=== PATIENT | male | born 1985 | race Caucasian/White ===

== ENCOUNTER 2020-07-15 11:33 | Inpatient (IN) | payer SELFPAY ==
[2020-07-15 11:48] VITALS: BP 136/92; PULSE 90; RESP 20; TEMP 36.3; O2SAT 98; BMI 20.4
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
[2020-07-15 12:25] VITALS: BP 101/77; PULSE 71; RESP 18; O2SAT 98
[2020-07-15] MEDS: LORazepam 1 mg Tablet PO (12:31)
[2020-07-15 12:40] LABS: Basophils % 0.4 %; Eosinophils # 0.2 10^3/uL (0.0-0.8); Hemoglobin 16.2 g/dL (11.7-16.6); Lymphocytes # 1.5 10^3/uL (0.8-4.8); Lymphocytes % 20.4 %; Mean Corpuscular HGB Conc 33.1 g/dL (30.0-36.0); Mean Corpuscular Hemoglobin 31.5 pg (28.0-34.0); Mean Corpuscular Volume 95.1 fL (80-94); Mean Platelet Volume 9.3 fL (7.4-10.4); Monocytes # 0.3 10^3/uL (0.2-0.9); Monocytes % 4.5 %; Neutrophils # 5.18 10^3/uL (1.8-7.7); Neutrophils % 71.3 %; Nucleated Red Blood Cells % 0 %; Platelet Count 267 10^3/cmm (130-400); Red Blood Count 5.15 10^6/uL (4.1-5.3); Red Cell Distribution Width 12.8 % (12.1-15.1); White Blood Count 7.3 10^3/uL (4.0-10.0)
[2020-07-15 12:40] LABS: Add Urine Microscopic? NO
[2020-07-15 12:45] LABS: Bilirubin Urine Neg (NEGATIVE); Blood Urine Neg (Negative); Glucose Urine UA Norm (Normal); Ketones Urine Negative (Negative); Leukocyte Esterase Urine Negative (Negative); Nitrate Urine Negative (Negative); Protein Urine Neg (Negative); Specific Gravity, Urine 1.005 (1.005-1.030); Urine Appearance Clear (CLEAR); Urine Color Straw (Yellow); Urobilinogen Urine Norm (Negative); pH Urine 6 (5-7)
[2020-07-15 12:59] VITALS: BP 112/67; PULSE 72; RESP 18; O2SAT 96
[2020-07-15 13:09] LABS: Blood Urea Nitrogen 8 mg/dL (6-20); Calcium 9.7 mg/dL (8.5-10.5); Carbon Dioxide 28 mmol/L (22-29); Chloride 103 mmol/L (98-107); Creatinine Clr Calc Pharmacy 100.8408; Glomerular Filtration Rate 76.2 mL/min (90-130); Glucose 104 mg/dL (65-115); Osmolality Calculated 282 mOsm/kg (285-295); Salicylate 1.2 mg/dL (3-10); Sodium 138 mmol/L (136-145)
[2020-07-15 13:10] LABS: Acetaminophen < 5.0 ug/mL (10-30)
[2020-07-15 13:11] LABS: Amphetamines Screen Urine Negative (Negative); Barbiturates Screen Urine Negative (Negative); Benzodiazepines Screen Urine Negative (Negative); Cocaine Screen Urine Negative (Negative); Opiate Screen Urine Negative (Negative); PCP Screen Urine Negative (Negative); THC Screen Urine Positive (Negative)
--- NOTE | 2020-07-15 13:38 | PC.NURSE ---
REPORT GIVEN TO PHILIP ZAMBRANO
[2020-07-15 14:32] VITALS: BP 108/67; PULSE 63; RESP 18; O2SAT 97
[2020-07-15 14:56] VITALS: BP 113/76; PULSE 84; RESP 20; TEMP 36.8; O2SAT 99
[2020-07-15 20:30] VITALS: BP 99/56; PULSE 62; RESP 17; TEMP 36.9; O2SAT 99
[2020-07-16 06:00] VITALS: BP 86/50; PULSE 65; RESP 13; TEMP 36.8; O2SAT 97
[2020-07-16] MEDS: sulfamethoxazole-trimeth DS 160-800 mg Tablet 1 TAB PO ×2 (09:22→17:58)
[2020-07-16] MEDS: nicotine 2 mg Gum BUCCAL ×2 (09:31→12:51)
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
[2020-07-16] MEDS: OLANZapine 5 mg ODT PO (12:53)
--- NOTE | 2020-07-16 12:53 | PC.NURSE ---
Complaining of racing thoughts and feeling agitated. PRN med given see MAR
[2020-07-16 13:40] VITALS: BP 97/60; PULSE 61; RESP 18; TEMP 36.8; O2SAT 98
[2020-07-16] MEDS: fluoxetine 20 mg Capsule PO (16:12)
[2020-07-16 21:38] VITALS: BP 99/64; PULSE 67; RESP 15; TEMP 36.2; O2SAT 97
[2020-07-17 06:00] VITALS: BP 103/69; PULSE 82; RESP 17; TEMP 36.2; O2SAT 98
[2020-07-17] MEDS: hyDROXYzine 25 mg Capsule 50 MG PO ×2 (08:09→21:19)
[2020-07-17] MEDS: fluoxetine 20 mg Capsule PO (08:09)
[2020-07-17] MEDS: sulfamethoxazole-trimeth DS 160-800 mg Tablet 1 TAB PO ×2 (08:09→17:17)
[2020-07-17] MEDS: nicotine 2 mg Gum BUCCAL ×3 (08:12→15:49)
--- NOTE | 2020-07-17 11:28 | P.PN_ITS ---
Subjective NPU Subjective: Interval history: Urbano presents today reporting that he is tolerating the Prozac just fine. He was able to have a more rational view of his disintegrating relationship. Not exactly clear that it is for sure over. But he was able to talk about different scenarios and how he would manage them. We discussed the possibility of discharge tomorrow after the treatment team convenes and is able to examine his situation. He reports he is eating and sleeping better. Mental Status Exam MSE Comments: This is a slender white male with adequate dress, grooming and eye contact. No abnormal movements except for mild improving psychomotor retardation. Cooperative with exam in no acute distress. Speech was more normal rate and volume. Mood described as a little better, affect congruent. Thought process organized. Thought content: Patient denied any suicidal or homicidal ideations, there were no delusions reported or noted, he denied any auditory or visual hallucinations. Attention and concentration were intact and memory was mostly reliable but none were formally tested. He is alert and oriented x3. Insight and judgment are improving. 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 1. Continue current medication. 2. Encourage individual, group and milieu therapy. 3. Continue every 15 minute checks for safety. 4. Encourage sober living follow-up at the highest level of care to which he is willing to commit. Involuntary Hold Information 96 Hour Hold: 96 Hour Involuntary Admission: No Attestations NPU Medical Necessity Statement*: Inpatient hospitalization is medically necessary and the clinically appropriate intervention at this time. We will monitor medications and initiate medications and/or make changes as indicated. Likely length of stay 1-3 days. Coding Level of Care Code Acute Telecommunications Support for Matty Garvin
[2020-07-17 14:00] VITALS: BP 104/64; PULSE 65; RESP 20; TEMP 36.8; O2SAT 98
[2020-07-17] MEDS: trazodone 50 mg Tablet PO (21:19)
[2020-07-17 21:30] VITALS: BP 108/73; PULSE 69; RESP 21; TEMP 36.4; O2SAT 98
--- NOTE | 2020-07-17 22:25 | PC.NURSE ---
pt offered prn sleep and anxiety meds but refused,
--- NOTE | 2020-07-17 22:30 | PC.NURSE ---
pt given prn trazodone and vistaril per request.
[2020-07-18 06:00] VITALS: BP 96/60; PULSE 53; RESP 18; TEMP 36.6; O2SAT 97
[2020-07-18] MEDS: nicotine 2 mg Gum BUCCAL ×3 (06:18→13:25)
[2020-07-18] MEDS: fluoxetine 20 mg Capsule PO (09:21)
[2020-07-18] MEDS: sulfamethoxazole-trimeth DS 160-800 mg Tablet 1 TAB PO (09:21)
[2020-07-18 14:10] VITALS: BP 96/60; PULSE 53; RESP 18; TEMP 36.6; O2SAT 97
--- NOTE | 2020-07-18 14:32 | PM.NDC ---
Diagnoses at Discharge Discharge Diagnosis (1) Brief reactive psychosis with marked stressor: Status: Resolved (2) Marijuana intoxication: Status: Chronic Reason for Visit Reason for Visit: ANXIETY Brief History: HPI narrative: Patient states he just cannot take anymore he said he is not sleeping well he has thoughts racing through his mind. Said he has had a recent break-up with his girlfriend. He has bits of anger and he will hit stuff in and break chung and and other stuff he said people come and see him anymore. Said he quit meth 8 months ago smokes weed occasionally. Says he just needs some help. Denies SI are homicidal ideations Hospital Course Hospital Course The patient was admitted to the adult psychiatric unit and entered into the form of individual and group therapies as part of the unit protocol. They were provided 24-hour access to medication supervision and therapeutic activities by trained psychiatric nursing. The patient was educated with regard to potential benefits and side effects of new medications. We agreed to a contingency plan of discontinuation of medication in the event of intolerable side effects. On hospital day #2, the patient eloquently described the process that brings him to the stress unit . He becomes overwhelmed by some sort of stress in his life. Whether his anger or anxiety or frustration or depression does not seem to matter. He seems to interpret all of these as anxiety . However when these occur, he notes that he has difficulty with interpreting his reality. He will read sentences and not be quite sure what they mean. He will be perplexed. Fortunately, he is aware that his interpretation is ineffective. When this has happened in the past, in addition to coming to the hospital, he has gone to visit friends or gone to visit his grandparents. Coincidentally, this also removes him from use of marijuana. Over the course of a few days, his perceptions and perplexity over his interpretation of reality resolves. He reports that is what has happened here. He would like to continue taking his fluoxetine as he interprets all of this is anxiety and feels that the fluoxetine will help him with this. We discussed time course of response and he was agreeable to continuing the trial. However he was also advised that it is in his best interest to find alternative ways of dealing with his degree of disorganization under distress other than coming to the hospital. Complications and side effects of hospitalizations were explained. Involuntary Hold Information 96 Hour Hold: 96 Hour Involuntary Admission: No Mental Status Exam MSE Comments: Discharge Mental Status Exam: Appearance: hygiene is good; no gross neurological deficits., gait is unremarkable; AIMS=0 Speech: Speech is of normal rate and rhythm and easily understood. Thought processes: Thought processes are abstract. Judgment is adequate for safety. Associations: intact Psychotic processes: There is no indication of guarding or paranoia. There is no attention to the internal stimuli. Auditory and visual hallucinations are denied. Judgment: Insight is fair. Problem solving skills are adequate for safety. Orientation: The patient is oriented to person, place time and situation. Memory: no deficits noted in immediate, intermediate, or remote spheres. Attention: The patient is alert and interpersonally engaged. Language: Verbalizations are coherent. Fund of knowledge: Fund of knowledge is adequate. Affect/Mood: Affect is consistent with a euthymic mood. denied suicidal ideation Affective range is appropriate. Psychosis: perception unimpaired except through cognitive distortion; reality testing intact. Discharge Data Vitals: Last Vital Signs Temp 97.9 F 07/18/20 14:10 Pulse 53 L 07/18/20 14:10 Resp 18 07/18/20 14:10 BP 96/60 07/18/20 14:10 Pulse Ox 97 07/18/20 14:10 Discharge Plan Discharge Patient Disposition: Home Condition: Stable Prescriptions: New trazodone 50 mg Tablet 50 mg PO BEDTIME PRN (Reason: Sleep) Qty: 15 RF: 3 fluoxetine 20 mg Capsule 20 mg PO DAILY Qty: 30 RF: 3 Continued sulfamethoxazole-trimethoprim 800-160 mg tablet 1 tab PO BID Qty: 8 RF: 0 Discharge Orders: Discharge Order (Routine); Ordered 07/18/20 Ordered By: Reyes Luis Referrals: [facility] [Outside] - 1-3 days (call and request initial intake to get outpatient mental health services started. ) [facility] [Outside] - 1-3 days (call for initial assessment) Patient Instructions: Fluoxetine (By mouth), Trazodone (By mouth), Anxiety (DC) Discharge Attestations NPU Time Spent in Discharge Care*: greater than 30 min Coding Level of Care Code Acute Engraver Signature for [facility] Fwd Diagnoses Brief reactive psychosis with marked stressor F23 Marijuana intoxication F12.929
== END 2020-07-18 15:14 | disposition home or self-care (01) | DRG 885 ==
LOC: ER 12:56 → NP 13:35
PROVIDERS: Admitting Provider Psychiatry & Neurology Psychiatry; Emergency Provider Nurse Practitioner Family; PCP Nurse Practitioner; Visit Provider Psychiatry & Neurology Psychiatry
DX: F23 Brief psychotic disorder (principal); F12.229 Cannabis dependence with intoxication, unspecified; F17.210 Nicotine dependence, cigarettes, uncomplicated
CPT/HCPCS: 12345; 36415; 80048; 80306; 80307; 81003; 85025; 99282

== ENCOUNTER 2020-07-23 18:49 | Inpatient (IN) | payer SELFPAY ==
[2020-07-23 19:06] VITALS: BP 109/75; PULSE 92; RESP 18; TEMP 36.6; O2SAT 98; BMI 22.4
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
[2020-07-23 19:38] VITALS: BP 126/95; PULSE 86; RESP 22; TEMP 37.4; O2SAT 99
[2020-07-23] MEDS: LORazepam 2 mg Tablet PO (20:53)
[2020-07-23] MEDS: trazodone 50 mg Tablet PO (20:54)
--- NOTE | 2020-07-23 20:55 | PC.NURSE ---
PRN ATIVAN ADMINISTERED ATIVAN 2 MG PO PER CIWA PROTOCOL. CIWA SCORE 13. WILL MONITOR FOR MEDICATION EFFECTIVENESS.
[2020-07-23 22:00] VITALS: BP 126/95; PULSE 86; RESP 22; TEMP 37.4; O2SAT 99
--- NOTE | 2020-07-23 22:06 | PC.ADMIT ---
[facility] Admission Note: The patient,Urbano Villeda,34 y/o, was given written information regarding hospital policies, unit procedures and contact persons. Patient's smoking status: . Vital Signs - 8 hr 07/23/20 19:06 07/23/20 19:38 07/23/20 22:00 Temperature 97.8 F 99.3 F 99.3 F Pulse Rate 86 86 Pulse Rate [Monitor] 92 Respiratory Rate 18 22 H 22 H Blood Pressure 126/95 126/95 Blood Pressure [Right Arm] 109/75 Pulse Oximetry 98 99 99 Patient has multiple abrasions primarily on the right side of his body. He has lacerations to bi-lateral elbows which are dressed Xeroform gauze and coband. He has the same type of dressing on his right knee. He has a dressing applied to his right posterior shoulder.
[2020-07-24 01:52] VITALS: BP 126/95; PULSE 84; RESP 18; O2SAT 99
[2020-07-24 06:00] VITALS: BP 106/64; PULSE 59; RESP 18; TEMP 37.3; O2SAT 97
[2020-07-24] MEDS: multivitamin therapeutic Tablet 1 TAB PO (08:06)
[2020-07-24] MEDS: thiamine 100 mg Tablet PO (08:06)
[2020-07-24] MEDS: folic acid 1 mg Tablet PO (08:06)
[2020-07-24] MEDS: acetaminophen 325 mg Tablet 650 MG PO ×2 (08:06→21:00)
[2020-07-24] MEDS: nicotine 2 mg Gum BUCCAL (10:56)
[2020-07-24] MEDS: hyDROXYzine 25 mg Capsule 50 MG PO ×2 (13:05→21:00)
--- NOTE | 2020-07-24 13:07 | PC.NURSE ---
PRN Vistaril Patient became tearful and anxious while discussing hospital stay and reasons for being in hospital with SPN. Given Vistaril 50mg PO at this time. Will monitor the effectiveness of this medication.
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
[2020-07-24 14:00] VITALS: BP 112/67; PULSE 68; RESP 18; TEMP 36.8
[2020-07-24] MEDS: buPROPion SR (12 HR) 100 mg Tablet PO (17:01)
[2020-07-24] MEDS: mirtazapine 15 mg Tablet PO (21:00)
[2020-07-24] MEDS: ARIPiprazole 10 mg Tablet PO (21:01)
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
[2020-07-24 22:00] VITALS: BP 113/70; PULSE 59; RESP 17; TEMP 36.6; O2SAT 97
[2020-07-25 06:00] VITALS: BP 110/63; PULSE 74; RESP 17; TEMP 36.7; O2SAT 97
[2020-07-25] MEDS: acetaminophen 325 mg Tablet 650 MG PO ×2 (06:50→11:26)
--- NOTE | 2020-07-25 06:53 | PC.NURSE ---
PRN 650 PO tylenol given for pain from his injury. Patient expressed that he is having a hard time exhaling and feels pain to the left axillary area. He may need an xray to rule out further injury. Area does not appear bruised or discolored but it is painful to touch and when he takes a deep breath while letting it out.
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
[2020-07-25] MEDS: multivitamin therapeutic Tablet 1 TAB PO (09:37)
[2020-07-25] MEDS: buPROPion SR (12 HR) 100 mg Tablet PO (09:37)
[2020-07-25] MEDS: folic acid 1 mg Tablet PO (09:37)
[2020-07-25] MEDS: thiamine 100 mg Tablet PO (09:37)
[2020-07-25] MEDS: nicotine 2 mg Gum BUCCAL (09:42)
[2020-07-25 13:18] VITALS: BP 110/63; PULSE 74; RESP 17; TEMP 36.7; O2SAT 97
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
== END 2020-07-25 13:30 | disposition home or self-care (01) | DRG 897 ==
LOC: ER 19:12 → NP 20:04
PROVIDERS: Admitting Provider Psychiatry & Neurology Psychiatry; PCP Nurse Practitioner Family; Visit Provider Psychiatry & Neurology Psychiatry
DX: F19.159 Other psychoactive substance abuse with psychoactive substance-induced psychotic disorder, unspecified (principal); R45.851 Suicidal ideations; Z91.5 Personal history of self-harm; R45.850 Homicidal ideations
CPT/HCPCS: 12345; 71101; 99284

== ENCOUNTER 2020-09-07 21:21 | Inpatient (IN) | payer SELFPAY ==
[2020-09-07 21:39] VITALS: BP 131/84; PULSE 105; RESP 18; TEMP 36.5; O2SAT 98; BMI 21.7
--- NOTE | 2020-09-07 22:02 | ED_ITS ---
HPI - Psych General: Chief Complaint: Psychiatric Symptoms Stated Complaint: mhe Time Seen by Provider: 09/07/20 21:24 Source: patient Mode of arrival: ambulatory Limitations: no limitations History of Present Illness: HPI Narrative: 34-year-old male who has a history of methamphetamine abuse. States he used meth yesterday and has been having extreme paranoia and anxiousness. He states that he is also having depression. He denies any specific suicidal plans or suicidal ideation. He states he feels like he needs help with own he would like to go to psychiatric unit voluntarily. He denies any worsening improving factors. Associated symptoms: Reports depression Review of Systems Const: Denies: fever(s), chills, body aches or change in appetite Eyes: Denies: blurry vision or eye discomfort ENMT: Denies: throat pain or dental pain Card: Denies: chest pain Resp: Denies: dyspnea GI: Denies: abdominal pain, nausea, vomiting or diarrhea : Denies: dysuria Musc: Denies: neck pain or back pain Skin/Breast: Denies: rash Neuro: Denies: headache(s) Psych: Reports: anxiety and depression Robert/Lymph: Denies: easy bruising All/Imm: Denies: urticaria PFSH ED PFSH: Social History (Updated 08/11/20 @ 11:57 by LUIS Oscar) Smoking and tobacco status: current every day smoker Alcohol intake: unknown Marital status: Single Physical Exam Const: COMMON NORMALS: no acute distress, patient oriented x3 and healthy appearing HENMT: COMMON NORMALS: normocephalic and atraumatic HEAD & SCALP: normocephalic and atraumatic Eye: COMMON NORMALS: Equal, round and reactive pupils present and EOMs intact bilaterally PUPIL: Yes Equal, round and reactive pupils present Neck/C-Spine: COMMON NORMALS: full ROM and supple Chest: COMMONS NORMALS: normal inspection of the chest and normal palpation of entire chest wall Resp: COMMON NORMALS: normal respiratory effort, No retractions, No use of accessory muscles and clear to auscultation bilaterally AUSCULTATION: clear to auscultation bilaterally Cardio: COMMON NORMALS: regular rate, regular rhythm and No murmurs present (Cardio) RATE: regular rate RHYTHM: regular rhythm GI: COMMON NORMALS: Normal to inspection, nondistended, normoactive bowel sounds present, Soft to palpation, non-tender and no masses PALPATION: Yes Soft to palpation Extremity: COMMON NORMALS: normal to inspection and full ROM Neuro: COMMON NORMALS: patient oriented x3, moves all extremities and no focal motor deficits Psych: COMMON NORMALS: mental status grossly normal and cooperative ATTITUDE: Yes paranoid ACTIVITY/MOTOR BEHAVIOR: Yes fidgeting MOOD & AFFECT: Yes anxious Skin: COMMON NORMALS: no rashes or lesions noted and no wounds GENERAL SKIN EXAM: no rashes or lesions noted MDM - Psych MDM Narrative: Medical decision making narrative: Bernardino presents here with depression along with anxiety and some hallucinations. Some this is likely due to methamphetamine and he has recently used. Patient is voluntarily wanting to be admitted to the psych real at this time. He has no specific plan. I spoke to Dr. Rosales and will admit at this time. Lab Data: Labs: Lab Results 09/07/20 09/07/20 09/07/20 Range/Units 21:58 22:02 22:02 WBC 9.8 (4.0-10.0) 10^3/ uL RBC 5.50 H (4.1-5.3) 10^6/u L Hgb 17.1 H (11.7-16.6) g/dL Hct 51.4 (42.0-52.0) % MCV 93.5 (80-94) fL MCH 31.1 (28.0-34.0) pg MCHC 33.3 (30.0-36.0) g/dL RDW 13.2 (12.1-15.1) % Plt Count 299 (130-400) 10^3/c mm MPV 9.4 (7.4-10.4) fL Neut % (Auto) 68.4 % Lymph % (Auto) 22.6 % [place] % (Auto) 5.7 % Eos % (Auto) 2.4 % Baso % (Auto) 0.7 % Neut # (Auto) 6.69 (1.8-7.7) 10^3/u L Lymph # (Auto) 2.2 (0.8-4.8) 10^3/u L [place] # (Auto) 0.6 (0.2-0.9) 10^3/u L Eos # (Auto) 0.2 (0.0-0.8) 10^3/u L Baso # (Auto) 0.1 (0.0-0.1) 10^3/u L Nucleated RBC % (a uto) 0 % Nucleated RBCs # 0.0 /100WBC Sodium 137 (136-145) mmol/L Potassium 4.2 (3.5-5.1) mmol/L Chloride 100 (98-107) mmol/L Carbon Dioxide 25 (22-29) mmol/L Anion Gap 16.2 (5-19) BUN 16 (6-20) mg/dL Creatinine 1.0 (0.7-1.2) mg/dL GFR Calculation 85.0 L (90-130) mL/min Glucose 99 (65-115) mg/dL Calculated Osmolal ity 285 (285-295) mOsm/k g Calcium 10.0 (8.5-10.5) mg/dL Total Bilirubin 0.4 (0.15-1.2) mg/dL AST 18 (0-40) U/L ALT 17 (0-41) U/L Alkaline Phosphata se 85 (40-130) IU/L Total Protein 7.8 (6.6-8.7) g/dL Albumin 4.9 (3.5-5.2) g/dL Globulin 2.9 (1.3-4.6) g/dL Salicylates < 0.3 L (3-10) mg/dL Urine Opiates Scre en Negative (Negative) ng/mL Acetaminophen < 5.0 L (10-30) ug/mL Ur Barbiturates Sc reen Negative (Negative) ng/mL Ur Phencyclidine S crn Negative (Negative) ng/mL Ur Amphetamines Sc reen Positive H (Negative) ng/mL U Benzodiazepines Scrn Negative (Negative) ng/mL Urine Cocaine Scre en Negative (Negative) ng/mL U Marijuana (THC) Screen Positive H (Negative) ng/mL Ethyl Alcohol < 10 (0-10) mg/dL Discharge Plan Discharge Patient Disposition: Admitted As Inpatient Clinical Impression: Suicidal ideation, Drug-induced psychotic disorder Condition: Stable Referrals: Светлана Yu FNP-C [Primary Care Provider] - Coding Level of Care Code ED Automatic Pad Making Machine Operator for g Fwd Exam Comprehensive
--- NOTE | 2020-09-07 22:10 | ECG_ITS ---
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 Measurements Intervals [place] Rate: 93 P: 85 WI: 147 QRS: 92 QRSD: 95 T: 40 QT: 376 QTc: 468 Interpretive Statements SINUS RHYTHM POSSIBLE LEFT ATRIAL ENLARGEMENT [-0.1mV P WAVE IN V1/V2] BORDERLINE RIGHT AXIS DEVIATION [QRS AXIS > 90] Compared to ECG 03/12/2017 22:24:12 No significant changes Electronically Signed On 09-08-2020 18:33:53 CDT by Darci Sherman M.D. [id number]
[2020-09-07 22:11] LABS: Basophils # 0.1 10^3/uL (0.0-0.1); Basophils % 0.7 %; Eosinophils # 0.2 10^3/uL (0.0-0.8); Eosinophils % 2.4 %; Hematocrit 51.4 % (42.0-52.0); Hemoglobin 17.1 g/dL (11.7-16.6); Lymphocytes # 2.2 10^3/uL (0.8-4.8); Lymphocytes % 22.6 %; Mean Corpuscular HGB Conc 33.3 g/dL (30.0-36.0); Mean Corpuscular Hemoglobin 31.1 pg (28.0-34.0); Mean Corpuscular Volume 93.5 fL (80-94); Mean Platelet Volume 9.4 fL (7.4-10.4); Monocytes # 0.6 10^3/uL (0.2-0.9); Monocytes % 5.7 %; Neutrophils # 6.69 10^3/uL (1.8-7.7); Neutrophils % 68.4 %; Nucleated Red Blood Cells % 0 %; Platelet Count 299 10^3/cmm (130-400); Red Cell Distribution Width 13.2 % (12.1-15.1); White Blood Count 9.8 10^3/uL (4.0-10.0)
[2020-09-07 22:14] LABS: Amphetamines Screen Urine Positive (Negative); Barbiturates Screen Urine Negative (Negative); Benzodiazepines Screen Urine Negative (Negative); Cocaine Screen Urine Negative (Negative); Opiate Screen Urine Negative (Negative); PCP Screen Urine Negative (Negative); THC Screen Urine Positive (Negative)
[2020-09-07 22:30] LABS: Alanine Aminotransferase 17 U/L (0-41); Albumin Level 4.9 g/dL (3.5-5.2); Alkaline Phosphatase 85 IU/L (40-130); Anion Gap 16.2 (5-19); Aspartate Amino Transferase 18 U/L (0-40); Blood Urea Nitrogen 16 mg/dL (6-20); Carbon Dioxide 25 mmol/L (22-29); Chloride 100 mmol/L (98-107); Globulin 2.9 g/dL (1.3-4.6); Glucose 99 mg/dL (65-115); Osmolality Calculated 285 mOsm/kg (285-295); Potassium 4.2 mmol/L (3.5-5.1); Sodium 137 mmol/L (136-145); Total Bilirubin 0.4 mg/dL (0.15-1.2); Total Protein 7.8 g/dL (6.6-8.7)
[2020-09-07] MEDS: LORazepam 2 mg Tablet PO (22:40)
[2020-09-07 22:45] LABS: Acetaminophen < 5.0 ug/mL (10-30); Alcohol Level < 10 mg/dL (0-10); Salicylate < 0.3 mg/dL (3-10)
[2020-09-07 23:02] VITALS: BP 136/80; PULSE 100; RESP 18; O2SAT 99
[2020-09-07 23:35] VITALS: BP 85/55; PULSE 90; RESP 17; TEMP 36.5; O2SAT 96
[2020-09-08] MEDS: ARIPiprazole 10 mg Tablet PO (00:59)
[2020-09-08 05:12] VITALS: BP 78/50; PULSE 69; RESP 16; TEMP 36.7; O2SAT 96
[2020-09-08] MEDS: buPROPion SR (12 HR) 100 mg Tablet PO ×2 (08:12→21:45)
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
[2020-09-08 13:48] VITALS: BP 93/56; PULSE 74; RESP 18; TEMP 36.9; O2SAT 99
[2020-09-08] MEDS: nicotine 2 mg Gum BUCCAL (16:00)
[2020-09-08 20:13] VITALS: BP 93/61; PULSE 81; RESP 17; TEMP 36.6; O2SAT 94
[2020-09-08] MEDS: hyDROXYzine 25 mg Capsule 50 MG PO (21:45)
[2020-09-08] MEDS: trazodone 50 mg Tablet PO (21:45)
[2020-09-09 06:00] VITALS: BP 99/64; PULSE 70; RESP 16; TEMP 36.7; O2SAT 98
[2020-09-09] MEDS: nicotine 2 mg Gum BUCCAL ×3 (08:12→14:27)
[2020-09-09] MEDS: buPROPion SR (12 HR) 100 mg Tablet PO ×2 (08:12→20:24)
[2020-09-09 14:00] VITALS: BP 92/61; PULSE 89; RESP 18; TEMP 36.3; O2SAT 96
--- NOTE | 2020-09-09 15:44 | PC.RESP ---
SMOKING CESSATION INFORMATION SENT TO PATIENT.
--- NOTE | 2020-09-09 16:46 | PM.NPN ---
Subjective NPU Subjective: Interval history: Urbano presents today reporting that he feels significantly better than yesterday. He identified the clear need for avoidance of drugs of abuse in his wellness and overall functioning. He did not have a clear indication of how he would do that but endorsed an understanding of the importance of abstinence in his successful mental health. He denied any issues with the medications and reports that he is adjusting to them being back on board. We discussed the possibility of discharge tomorrow. Mental Status Exam MSE Comments: This is a well-nourished, well-developed white female with adequate respiratory denied. No abnormal movements. Cooperative with exam in mild distress. Speech was decreased rate and volume. Mood described as better, affect congruent. Thought process organized. Thought content: Patient denied suicidal or homicidal ideations, there were no delusions reported or noted, he denied any auditory or visual hallucinations. Attention concentration and memory appear intact but were not formally tested. He is alert and oriented ?3. Insight and judgment are fair, and improving. Impulse control is limited, and improving. Vitals/I&O/Wt Last Vital Signs Temp 97.4 F L 09/09/20 14:00 Pulse 89 09/09/20 14:00 Resp 18 09/09/20 14:00 BP 92/61 09/09/20 14:00 Pulse Ox 96 09/09/20 14:00 Weight last 48 hrs Weight 74.843 kg Data NPU : 09/07/20 22:02 09/07/20 22:02 A&P Additional A&P Information (1) Suicidal ideation: (2) Drug-induced psychotic disorder: (3) Cannabis use disorder, moderate, dependence: (4) Anxiety: (5) Depressive disorder: (6) Brief reactive psychosis with marked stressor: (7) Psychosis: This is a 34-year-old white male known to this press writer from a previous hospitalization who presents with reports of depression and psychosocial stressors from a recent breakout with active addiction and a willingness to initiate medication. 1. Continue current medication. 2. Encourage individual, group and milieu therapy. 3. Continue every 15 minute checks for safety. 4. Encourage sober living follow-up at the highest level of care to which he is willing to commit. Involuntary Hold Information 96 Hour Hold: 96 Hour Involuntary Admission: No 96 Hour Hold Ending Date: 08/01/20 96 Hour Hold Ending Time: 00:01 Attestations NPU Medical Necessity Statement*: Inpatient hospitalization is medically necessary and the clinically appropriate intervention at this time. We will monitor medications and initiate medications and/or make changes as indicated. Likely length of stay 1-3days. Coding Level of Care Code Acute Sales And Marketing Specialist for Matty Garvin
[2020-09-09] MEDS: hyDROXYzine 25 mg Capsule 50 MG PO (20:24)
[2020-09-09] MEDS: trazodone 50 mg Tablet PO (20:24)
--- NOTE | 2020-09-09 20:25 | PC.NURSE ---
PRN TRAZODONE & VISTARIL PT REQUESTING SLEEP AID AND ANXIETY MEDICATION. ADMINISTERED TRAZODONE 50MG PO & VISTARIL 50 MG PO. WILL MONITOR FOR MEDICATION EFFECTIVENESS.
[2020-09-09 20:54] VITALS: BP 100/66; PULSE 81; RESP 16; TEMP 37.1; O2SAT 100
--- NOTE | 2020-09-09 21:42 | PC.NURSE ---
Pt denies pain, SI/HI, VH/AH at this time. He is resting in his bed and requested to be left alone after assessment to sleep
[2020-09-10] MEDS: acetaminophen 325 mg Tablet 650 MG PO (03:30)
[2020-09-10 06:00] VITALS: BP 95/61; PULSE 74; RESP 16; TEMP 36.8; O2SAT 98
[2020-09-10] MEDS: nicotine 2 mg Gum BUCCAL (06:32)
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
[2020-09-10 07:29] VITALS: BP 95/61; PULSE 74; RESP 16; TEMP 36.8; O2SAT 98
[2020-09-10] MEDS: buPROPion SR (12 HR) 100 mg Tablet PO (08:20)
== END 2020-09-10 09:36 | disposition home or self-care (01) | DRG 897 ==
LOC: ER 22:20 → NP 23:29
PROVIDERS: Emergency Medicine; Admitting Provider Psychiatry & Neurology Psychiatry; PCP Nurse Practitioner Family; Visit Provider Psychiatry & Neurology Psychiatry
DX: F10.129 Alcohol abuse with intoxication, unspecified (principal); R45.851 Suicidal ideations; F15.259 Other stimulant dependence with stimulant-induced psychotic disorder, unspecified; F41.8 Other specified anxiety disorders; F12.10 Cannabis abuse, uncomplicated; Y90.8 Blood alcohol level of 240 mg/100 ml or more; F17.210 Nicotine dependence, cigarettes, uncomplicated
CPT/HCPCS: 12345; 80053; 80306; 80307; 85025; 93005; 99284

== ENCOUNTER 2020-09-16 01:07 | Inpatient (IN) | payer SELFPAY ==
[2020-09-16 01:11] VITALS: BP 109/72; PULSE 78; RESP 22; TEMP 36.7; O2SAT 98; BMI 24.4
[2020-09-16] MEDS: diphenhydrAMINE 50 mg/mL SDV 1mL IM (01:33)
[2020-09-16] MEDS: ziprasidone 20 mg/mL SDV 10 MG IM (01:33)
[2020-09-16 01:55] LABS: Amphetamines Screen Urine Negative (Negative); Barbiturates Screen Urine Negative (Negative); Benzodiazepines Screen Urine Negative (Negative); Cocaine Screen Urine Negative (Negative); Opiate Screen Urine Negative (Negative); PCP Screen Urine Negative (Negative); THC Screen Urine Positive (Negative)
--- NOTE | 2020-09-16 02:22 | ED_ITS ---
HPI - Psych General: Chief Complaint: Psychiatric Symptoms Stated Complaint: si and etoh Time Seen by Provider: 09/16/20 01:11 Source: patient and EMS Mode of arrival: EMS Limitations: other (Patient not cooperative) History of Present Illness: HPI Narrative: Urbano is a 35-year-old male who comes in agitated. He is brought in by EMS after apparently he threatened to kill himself. He wanted to try to with suicide by surgical endoscopist . Patient is agitated borderline combative but is able to be redirected currently. He states he knows he needs to come into the hospital and he has been off of his psychiatric medications for the past 2 days. He would not elaborate on what these medications are. He states that if we do not give him some help he is going to do this to himself. The patient cannot answer most questions and just continues to ask us to help him kill himself. Review of Systems General: Reports: ROS unobtainable due to mental status (Patient not cooperative due to agitation.) PFS ED PFSH: Surgical History (Updated 09/16/20 @ 02:59 by Madeleine Soto) Hx of tonsillectomy Social History (Updated 08/11/20 @ 11:57 by LUIS Oscar) Smoking and tobacco status: current every day smoker Alcohol intake: unknown Marital status: Single Physical Exam Const: COMMON NORMALS: no acute distress, patient oriented x3, no limitations and alert GENERAL APPEARANCE: cooperative HENMT: COMMON NORMALS: normocephalic, atraumatic, external ears normal, EAC's normal and Normal external nose present HEAD & SCALP: normal to inspection, normocephalic and atraumatic FACE & SINUS: normal facial exam and face symmetric NOSE: Normal external nose present and Normal nares present EXTERNAL EAR: Yes external ears normal EXTERNAL AUDITORY CANAL: EAC's normal MOUTH: Normal oral and palatal mucosa present, lip normal and tongue normal Eye: COMMON NORMALS: Equal, round and reactive pupils present and conjunctivae normal GENERAL EYE: appearance normal, both eyes and all related structures ALIGNMENT: Yes alignment normal PERIORBITAL: periorbital findings normal EYELID: eyelids normal CONJUNCTIVA: Yes conjunctivae normal SCLERA: sclerae normal PUPIL: Yes Equal, round and reactive pupils present Neck/C-Spine: COMMON NORMALS: full ROM, no lymphadenopathy, supple, no meningeal signs and no JVD GENERAL: Yes normal visual inspection and Yes trachea midline Chest: COMMONS NORMALS: normal inspection of the chest and normal palpation of entire chest wall Resp: COMMON NORMALS: normal respiratory effort, No retractions, No use of accessory muscles and clear to auscultation bilaterally EFFORT & INSPECTION: Yes able to speak in complete sentences and Yes symmetric chest movement AUSCULTATION: clear to auscultation bilaterally, no crackles, no rales, no rhonchi and no wheezes Cardio: COMMON NORMALS: no JVD, regular rate, regular rhythm, S1 normal heart sound present and S2 normal heart sound present RATE: regular rate RHYTHM: regular rhythm HEART SOUNDS: S1 normal heart sound present, S2 normal heart sound present, no click, no gallops, no murmurs and no rubs GI: COMMON NORMALS: Soft to palpation and No hepatosplenomegaly present PALPATION: Yes Soft to palpation, No Tenderness to palpation present (GI), No Guarding due to palpation present (GI), No Rigid due to palpation, Yes No hepatosplenomegaly present, No Hernia present, No Palpable mass present and No Pulsatile mass present : COMMON NORMALS: Yes no CVA tenderness BLADDER/KIDNEY EXAM: Yes no CVA tenderness Back/Pelvis: COMMON NORMALS: no CVA tenderness, thoracic and lumbar spine normal to inspection, no thoracic nor lumbar tenderness and thoraco-lumbar ROM normal Extremity: COMMON NORMALS: normal to inspection, full ROM, capillary refill normal, no joint enlargement, no clubbing, cyanosis or edema and no calf tenderness Neuro: COMMON NORMALS: patient oriented x3, CN's II-XII intact bilaterally, moves all extremities, no focal motor deficits and no sensory deficits noted SENSORIUM/ORIENTATION: Yes alert MENINGEAL SIGNS: Yes no meningeal signs SPEECH: speech normal Skin: COMMON NORMALS: no rashes or lesions noted, turgor normal, no jaundice, no petechiae and no mottling GENERAL SKIN EXAM: no rashes or lesions noted and turgor normal MDM - Psych MDM Narrative: Medical decision making narrative: The case was reviewed with Dr. Rosales and he agrees to admission and [facility]. Lab Data: Attestation: I reviewed the patient's lab results. Labs: Lab Results 09/16/20 Range/Units 01:19 Urine Opiates Scre en Negative (Negative) ng/mL Ur Barbiturates Sc reen Negative (Negative) ng/mL Ur Phencyclidine S crn Negative (Negative) ng/mL Ur Amphetamines Sc reen Negative (Negative) ng/mL U Benzodiazepines Scrn Negative (Negative) ng/mL Urine Cocaine Scre en Negative (Negative) ng/mL U Marijuana (THC) Screen Positive H (Negative) ng/mL Discharge Plan Discharge Patient Disposition: Admitted As Inpatient Admit Provider: Reyes Luis Clinical Impression: Suicidal ideation Condition: Stable Coding Level of Care Code ED Wwe Wrestler for Matty Garvin
[2020-09-16 02:56] LABS: Basophils # 0.1 10^3/uL (0.0-0.1); Basophils % 0.6 %; Eosinophils # 0.1 10^3/uL (0.0-0.8); Eosinophils % 1.2 %; Hematocrit 47.5 % (42.0-52.0); Hemoglobin 15.6 g/dL (11.7-16.6); Lymphocytes # 2.2 10^3/uL (0.8-4.8); Lymphocytes % 20.8 %; Mean Corpuscular HGB Conc 32.8 g/dL (30.0-36.0); Mean Corpuscular Hemoglobin 30.8 pg (28.0-34.0); Mean Corpuscular Volume 93.9 fL (80-94); Mean Platelet Volume 9.5 fL (7.4-10.4); Monocytes # 0.3 10^3/uL (0.2-0.9); Monocytes % 3.1 %; Neutrophils # 7.83 10^3/uL (1.8-7.7); Neutrophils % 73.9 %; Nucleated Red Blood Cells % 0 %; Platelet Count 244 10^3/cmm (130-400); Red Blood Count 5.06 10^6/uL (4.1-5.3); White Blood Count 10.6 10^3/uL (4.0-10.0)
[2020-09-16 03:18] LABS: Alanine Aminotransferase 17 U/L (0-41); Albumin Level 4.8 g/dL (3.5-5.2); Alcohol Level 179 mg/dL (0-10); Alkaline Phosphatase 74 IU/L (40-130); Anion Gap 12.8 (5-19); Aspartate Amino Transferase 24 U/L (0-40); Blood Urea Nitrogen 8 mg/dL (6-20); Calcium 9.1 mg/dL (8.5-10.5); Carbon Dioxide 28 mmol/L (22-29); Chloride 108 mmol/L (98-107); Creatinine Clr Calc Pharmacy 148.5786; Globulin 2.2 g/dL (1.3-4.6); Glucose 111 mg/dL (65-115); Osmolality Calculated 299 mOsm/kg (285-295); Potassium 3.8 mmol/L (3.5-5.1); Sodium 145 mmol/L (136-145); Thyroid Stimulating Hormone 6.22 uIU/mL (0.27-4.20); Total Bilirubin 0.3 mg/dL (0.15-1.2)
[2020-09-16 03:36] LABS: Acetaminophen < 5.0 ug/mL (10-30); Salicylate < 0.3 mg/dL (3-10)
[2020-09-16 04:43] VITALS: BP 106/72; PULSE 87; RESP 14; TEMP 36.6; O2SAT 100
[2020-09-16 05:06] VITALS: BP 112/77; PULSE 74; O2SAT 100
[2020-09-16 06:00] VITALS: BP 106/72; PULSE 87; RESP 14; TEMP 36.6; O2SAT 100
[2020-09-16] MEDS: multivitamin therapeutic Tablet 1 TAB PO (07:43)
[2020-09-16] MEDS: thiamine 100 mg Tablet PO (07:44)
[2020-09-16] MEDS: folic acid 1 mg Tablet PO (07:44)
[2020-09-16] MEDS: buPROPion SR (12 HR) 100 mg Tablet PO (07:44)
--- NOTE | 2020-09-16 09:43 | PM.NHP ---
Providers/Chief Complaint Admitting Physician: Reyes Luis MD Primary Care Provider: Светлана Yu REGISTERED SAFETY ENGINEER-C Chief Complaint: si and etoh HPI NPU History of Present Illness When I get drink, I just get stupid. Urbano Villeda is a 35 year old male who was an alcoholic. He had remained clean and sober until yesterday afternoon. He began hanging around with friends who were drinking. He eventually succumbed to the temptation. He presented to the emergency room with a blood alcohol level = 179. The emergency room physician note is as follows: Laboratory Tests 09/16/20 09/16/20 01:19 02:42 Ur Barbiturates Screen Negative Ur Phencyclidine Scrn Negative Ur Amphetamines Screen Negative U Benzodiazepines Scrn Negative Urine Cocaine Screen Negative U Marijuana (THC) Screen Positive H Ethyl Alcohol 179 H Recent Psycchiatric history: 09/08/2020 thru 09/10/2020 (6 days ago) History of Present Illness: HPI Narrative: 34-year-old male who has a history of methamphetamine abuse. States he used meth yesterday and has been having extreme paranoia and anxiousness. He states that he is also having depression. He denies any specific suicidal plans or suicidal ideation. He states he feels like he needs help with own he would like to go to psychiatric unit voluntarily. He denies any worsening improving factors. Associated symptoms: Reports depression. He presented to the neuropsychiatric unit for definitive treatment of those issues. She presents today reporting that he was last here about a month or so ago. He reports that he had his first psychiatric hospitalization in . He reportedly had hallucinations then. He reports having the same issues now and is very despondent secondary to his mental health reportedly costing him to relationships. He reports that he feels the people in his community are wanted her crazy and are making fun of him and driving him crazy. He reports that the Wellbutrin and the Remeron have been helpful. However he feels the Abilify may not be as helpful. We discussed the risks benefits and alternatives of considering an alternative medication once we looked at what he would have coverage for any understood and agreed to proceed as documented in his note. He reports smoking about a pack of cigarettes a day denying alcohol use endorsing marijuana use daily, he denies cocaine, methamphetamine or opiate use but then said he did use a couple days ago. He ultimately had a positive UDS for methamphetamine. Even the rehabilitation 3 times completing once and denies having a DUI. He was last seen by this sign writer hand for an evaluation on 07/16/2020 and last seen in the hospital in the beginning of July. An excerpt from his last evaluation with this sign writer hand is included below as he denies there are substantive changes. Discharged on: bupropion HCl 100 mg Tablet Sustained-Release 12 Hr 100 mg PO BID 30 Days Qty: 60 RF: 1 mirtazapine 15 mg Tablet 15 mg PO BEDTIME PRN (Reason: Insomnia) 30 Days Qty: 30 RF: 1 aripiprazole 10 mg Tablet 10 mg PO BEDTIME 30 Days Qty: 30 RF: 1 He was hospitalized for 24 hours from 07/24/2020yo 07/25/2020 07/18/2020 HPI narrative: Patient states he just cannot take anymore he said he is not sleeping well he has thoughts racing through his mind. Said he has had a recent break-up with his girlfriend. He has bits of anger and he will hit stuff in and break chung and and other stuff he said people come and see him anymore. Said he quit meth 8 months ago smokes weed occasionally. Says he just needs some help. Denies SI are homicidal ideations Hospital Course The patient was admitted to the adult psychiatric unit and entered into the form of individual and group therapies as part of the unit protocol. They were provided 24-hour access to medication supervision and therapeutic activities by trained psychiatric nursing. The patient was educated with regard to potential benefits and side effects of new medications. We agreed to a contingency plan of discontinuation of medication in the event of intolerable side effects. On hospital day #2, the patient eloquently described the process that brings him to the stress unit . He becomes overwhelmed by some sort of stress in his life. Whether his anger or anxiety or frustration or depression does not seem to matter. He seems to interpret all of these as anxiety . However when these occur, he notes that he has difficulty with interpreting his reality. He will read sentences and not be quite sure what they mean. He will be perplexed. Fortunately, he is aware that his interpretation is ineffective. When this has happened in the past, in addition to coming to the hospital, he has gone to visit friends or gone to visit his grandparents. Coincidentally, this also removes him from use of marijuana. Over the course of a few days, his perceptions and perplexity over his interpretation of reality resolves. He reports that is what has happened here. He would like to continue taking his fluoxetine as he interprets all of this is anxiety and feels that the fluoxetine will help him with this. We discussed time course of response and he was agreeable to continuing the trial. However he was also advised that it is in his best interest to find alternative ways of dealing with his degree of disorganization under distress other than coming to the hospital. Complications and side effects of hospitalizations were explained. trazodone 50 mg Tablet 50 mg PO BEDTIME PRN (Reason: Sleep) Qty: 15 RF: 3 fluoxetine 20 mg Capsule 20 mg PO DAILY Qty: 30 RF: 3 Meds NPU Home Medications Medication Instructions Recorded Confirmed Last Taken Type aripiprazole 10 mg PO BEDTIME 30 Days #30 tab 09/10/20 09/16/20 Unknown Rx bupropion HCl 100 mg PO BID 30 Days #60 tab 09/10/20 09/16/20 Unknown Rx mirtazapine 15 mg PO BEDTIME PRN 30 Days #30 09/10/20 09/16/20 Unknown Rx tab Allergies Allergy/AdvReac Type Severity Reaction Status Date / Time haloperidol [From Haldol] Allergy ADR-Anxiety Verified 09/16/20 04:43 metoclopramide [From Reglan] Allergy ADR-Anxiety Verified 09/16/20 04:43 PFSH NPU PFSH: Surgical History (Updated 09/16/20 @ 02:59 by Madeleine Soto) Hx of tonsillectomy Social History (Updated 08/11/20 @ 11:57 by LUIS Oscar) Smoking and tobacco status: current every day smoker Alcohol intake: unknown Marital status: Single Vitals/I&O/Wt Last Vital Signs Temp 97.9 F 09/16/20 06:00 Pulse 87 09/16/20 06:00 Resp 14 09/16/20 06:00 BP 106/72 09/16/20 06:00 Pulse Ox 100 09/16/20 06:00 Weight last 48 hrs Weight 83.915 kg Data NPU : 09/16/20 02:42 09/16/20 02:42 Involuntary Hold Information 96 Hour Hold: 96 Hour Involuntary Admission: Yes 96 Hour Hold Ending Date: 09/22/20 96 Hour Hold Ending Time: 04:42 Coding Level of Care Code Acute Training And Development Project Leader for Matty Garvin
--- NOTE | 2020-09-16 11:21 | PM.SDS ---
Short Stay Summary Providers Date of Admit/Discharge: 09/16/20 Attending Provider: Reyes Luis MD Primary Care Provider: Светлана Yu Chief Complaint: si and etoh HPI History of Present Illness When I get drink, I just get stupid. Urbano Villeda is a 35 year old male who was an alcoholic. He had remained clean and sober until yesterday afternoon. He began hanging around with friends who were drinking. He eventually succumbed to the temptation. He presented to the emergency room with a blood alcohol level = 179. The emergency room physician note is as follows: HPI Narrative: Urbano is a 35-year-old male who comes in agitated. He is brought in by EMS after apparently he threatened to kill himself. He wanted to try to with suicide by copy supervisor . Patient is agitated borderline combative but is able to be redirected currently. He states he knows he needs to come into the hospital and he has been off of his psychiatric medications for the past 2 days. He would not elaborate on what these medications are. He states that if we do not give him some help he is going to do this to himself. The patient cannot answer most questions and just continues to ask us to help him kill himself. Laboratory Tests 09/16/20 09/16/20 01:19 02:42 Ur Barbiturates Screen Negative Ur Phencyclidine Scrn Negative Ur Amphetamines Screen Negative U Benzodiazepines Scrn Negative Urine Cocaine Screen Negative U Marijuana (THC) Screen Positive H Ethyl Alcohol 179 H Recent Psycchiatric history: 09/08/2020 thru 09/10/2020 (6 days ago) History of Present Illness: HPI Narrative: 34-year-old male who has a history of methamphetamine abuse. States he used meth yesterday and has been having extreme paranoia and anxiousness. He states that he is also having depression. He denies any specific suicidal plans or suicidal ideation. He states he feels like he needs help with own he would like to go to psychiatric unit voluntarily. He denies any worsening improving factors. Associated symptoms: Reports depression. He presented to the neuropsychiatric unit for definitive treatment of those issues. She presents today reporting that he was last here about a month or so ago. He reports that he had his first psychiatric hospitalization in 19-20. He reportedly had hallucinations then. He reports having the same issues now and is very despondent secondary to his mental health reportedly costing him to relationships. He reports that he feels the people in his community are wanted her crazy and are making fun of him and driving him crazy. He reports that the Wellbutrin and the Remeron have been helpful. However he feels the Abilify may not be as helpful. We discussed the risks benefits and alternatives of considering an alternative medication once we looked at what he would have coverage for any understood and agreed to proceed as documented in his note. He reports smoking about a pack of cigarettes a day denying alcohol use endorsing marijuana use daily, he denies cocaine, methamphetamine or opiate use but then said he did use a couple days ago. He ultimately had a positive UDS for methamphetamine. Even the rehabilitation 3 times completing once and denies having a DUI. He was last seen by this curriculum writer for an evaluation on 07/16/2020 and last seen in the hospital in the beginning of July. An excerpt from his last evaluation with this curriculum writer is included below as he denies there are substantive changes. Discharged on: bupropion HCl 100 mg Tablet Sustained-Release 12 Hr 100 mg PO BID 30 Days Qty: 60 RF: 1 mirtazapine 15 mg Tablet 15 mg PO BEDTIME PRN (Reason: Insomnia) 30 Days Qty: 30 RF: 1 aripiprazole 10 mg Tablet 10 mg PO BEDTIME 30 Days Qty: 30 RF: 1 He was hospitalized for 24 hours from 07/24/2020yo 07/25/2020 07/18/2020 HPI narrative: Patient states he just cannot take anymore he said he is not sleeping well he has thoughts racing through his mind. Said he has had a recent break-up with his girlfriend. He has bits of anger and he will hit stuff in and break chung and and other stuff he said people come and see him anymore. Said he quit meth 8 months ago smokes weed occasionally. Says he just needs some help. Denies SI are homicidal ideations Hospital Course The patient was admitted to the adult psychiatric unit and entered into the form of individual and group therapies as part of the unit protocol. They were provided 24-hour access to medication supervision and therapeutic activities by trained psychiatric nursing. The patient was educated with regard to potential benefits and side effects of new medications. We agreed to a contingency plan of discontinuation of medication in the event of intolerable side effects. On hospital day #2, the patient eloquently described the process that brings him to the stress unit . He becomes overwhelmed by some sort of stress in his life. Whether his anger or anxiety or frustration or depression does not seem to matter. He seems to interpret all of these as anxiety . However when these occur, he notes that he has difficulty with interpreting his reality. He will read sentences and not be quite sure what they mean. He will be perplexed. Fortunately, he is aware that his interpretation is ineffective. When this has happened in the past, in addition to coming to the hospital, he has gone to visit friends or gone to visit his grandparents. Coincidentally, this also removes him from use of marijuana. Over the course of a few days, his perceptions and perplexity over his interpretation of reality resolves. He reports that is what has happened here. He would like to continue taking his fluoxetine as he interprets all of this is anxiety and feels that the fluoxetine will help him with this. We discussed time course of response and he was agreeable to continuing the trial. However he was also advised that it is in his best interest to find alternative ways of dealing with his degree of disorganization under distress other than coming to the hospital. Complications and side effects of hospitalizations were explained. trazodone 50 mg Tablet 50 mg PO BEDTIME PRN (Reason: Sleep) Qty: 15 RF: 3 fluoxetine 20 mg Capsule 20 mg PO DAILY Qty: 30 RF: 3 Home Meds/Allergies Home Medications and Allergies Allergies Allergy/AdvReac Type Severity Reaction Status Date / Time haloperidol [From Haldol] Allergy ADR-Anxiety Verified 09/16/20 04:43 metoclopramide [From Reglan] Allergy ADR-Anxiety Verified 09/16/20 04:43 PFSH Acute PFSH: Surgical History (Updated 09/16/20 @ 02:59 by Madeleine Soto) Hx of tonsillectomy Social History (Updated 08/11/20 @ 11:57 by LUIS Oscar) Smoking and tobacco status: current every day smoker Alcohol intake: unknown Marital status: Single Vitals/I&O/Wt Last Vital Signs Temp 97.9 F 09/16/20 06:00 Pulse 87 09/16/20 06:00 Resp 14 09/16/20 06:00 BP 106/72 09/16/20 06:00 Pulse Ox 100 09/16/20 06:00 Weight last 48 hrs Weight 83.915 kg Physical Exam Narrative: EXAM NARRATIVE: Discharge Mental Status Exam: Appearance: hygiene is good; no gross neurological deficits., gait is unremarkable; AIMS=0 Speech: Speech is of normal rate and rhythm and easily understood. Thought processes: Thought processes are abstract. Judgment is adequate for safety. Associations: intact Psychotic processes: There is no indication of guarding or paranoia. There is no attention to the internal stimuli. Auditory and visual hallucinations are denied. Judgment: Insight is fair. Problem solving skills are adequate for safety. Orientation: The patient is oriented to person, place time and situation. Memory: no deficits noted in immediate, intermediate, or remote spheres. Attention: The patient is alert and interpersonally engaged. Language: Verbalizations are coherent. Fund of knowledge: Fund of knowledge is adequate. Affect/Mood: Affect is consistent with a euthymic mood. denied suicidal ideation Affective range is appropriate. Psychosis: perception unimpaired except through cognitive distortion; reality testing intact. Hospital Course Hospital Course: The patient was admitted to the adult psychiatric unit and entered into the form of individual and group therapies as part of the unit protocol. They were provided 24-hour access to medication supervision and therapeutic activities by trained psychiatric nursing. He has presented to the emergency room with an almost identical circumstance and story before. He corrie up and he no longer is suicidal. He is active in AA. He has a meeting this afternoon. Today he states that he is a little hung over but in no way is he suicidal or homicidal. He does not feel that there is anything that we can do for him. Discharge Plan Discharge Patient Disposition: Left Against Medical Advice Condition: Stable Prescriptions: Discontinued bupropion HCl 100 mg Tablet Sustained-Release 12 Hr 100 mg PO BID 30 Days Qty: 60 RF: 1 mirtazapine 15 mg Tablet 15 mg PO BEDTIME PRN (Reason: Insomnia) 30 Days Qty: 30 RF: 1 aripiprazole 10 mg Tablet 10 mg PO BEDTIME 30 Days Qty: 30 RF: 1 Attestations Medical Necessity Statement*: Patient is discharged AGAINST MEDICAL ADVICE Time Spent in Patient Care*: greater than 30 min Status at Discharge: Cognitive status at discharge: cognitively intact, Behavioral status at discharge: cooperative, Quality Metrics Clinical Quality Measures: During this hospital stay, did patient experience: None Coding Level of Care Code Acute Supervisor [employer] for Matty Garvin
[2020-09-16 11:27] VITALS: BP 106/72; PULSE 87; RESP 14; TEMP 36.6; O2SAT 100
--- NOTE | 2020-09-16 16:53 | PC.RESP ---
Smoking Cessation information sent to patient.
== END 2020-09-16 12:43 | disposition left against medical advice (07) | DRG 894 ==
LOC: ER 01:12 → NP 02:37
PROVIDERS: Emergency Medicine; Admitting Provider Psychiatry & Neurology Psychiatry; PCP Nurse Practitioner Family; Visit Provider Psychiatry & Neurology Psychiatry
DX: F10.229 Alcohol dependence with intoxication, unspecified (principal); R45.851 Suicidal ideations; Y90.6 Blood alcohol level of 120-199 mg/100 ml; Z91.128 Patient's intentional underdosing of medication regimen for other reason; F15.10 Other stimulant abuse, uncomplicated; F22 Delusional disorders; F41.9 Anxiety disorder, unspecified; F32.9 Major depressive disorder, single episode, unspecified; F17.210 Nicotine dependence, cigarettes, uncomplicated
CPT/HCPCS: 12345; 80053; 80306; 80307; 84443; 85025; 96372; 99284; J1200; J3486

== ENCOUNTER 2021-01-21 00:09 | Emergency (ER) | payer SELFPAY ==
[2021-01-21] VITALS (10 sets, daily range): BP systolic 90–151; BP diastolic 52–111; PULSE 67–103; RESP 16–18; TEMP 36.4; O2SAT 93–99; BMI 25.3
--- NOTE | 2021-01-21 00:17 | ED_ITS ---
Documented by User: CHASIDY Haas 01/21/21 03:14 HPI - Psych General: Chief Complaint: Psychiatric Symptoms Stated Complaint: etoh, si, hi Time Seen by Provider: 01/21/21 00:11 History of Present Illness: HPI Narrative: 35-year-old male patient comes in today with complaints of alcohol intoxication. Patient was brought in by EMS after he became belligerent and law enforcement was called. Patient had reportedly made comments of wanting to harm himself or others. EMS had given the patient 1 L of IV fluids in route to the ER. On arrival here patient denies any suicidal or homicidal thought. Patient is intoxicated. Patient does report to drinking 2/5 of alcohol this evening. Review of Systems General: Reports: 10 or more systems reviewed and unremarkable except in HPI and below Psych: Reports: other (Intoxicated) [facility] ED PFSH: Surgical History (Updated 09/16/20 @ 02:59 by Madeleine Soto) Hx of tonsillectomy Social History (Updated 08/11/20 @ 11:57 by LUIS Oscar) Smoking and tobacco status: current every day smoker Alcohol intake: unknown Marital status: Single Physical Exam Const: COMMON NORMALS: no acute distress and patient oriented x3 GENERAL APPEARANCE: cooperative HENMT: COMMON NORMALS: normocephalic and Normal external nose present HEAD & SCALP: normal to inspection and normocephalic NOSE: Normal external nose present MOUTH: Normal oral and palatal mucosa present Eye: GENERAL EYE: appearance normal, both eyes and all related structures Neck/C-Spine: COMMON NORMALS: full ROM Chest: COMMONS NORMALS: normal inspection of the chest Resp: COMMON NORMALS: normal respiratory effort EFFORT & INSPECTION: Yes able to speak in complete sentences Cardio: COMMON NORMALS: regular rate and regular rhythm RATE: regular rate RHYTHM: regular rhythm GI: COMMON NORMALS: non-tender Back/Pelvis: COMMON NORMALS: thoracic and lumbar spine normal to inspection Extremity: COMMON NORMALS: normal to inspection Neuro: COMMON NORMALS: patient oriented x3 and moves all extremities Psych: COMMON NORMALS: mental status grossly normal and cooperative Skin: COMMON NORMALS: no rashes or lesions noted GENERAL SKIN EXAM: no rashes or lesions noted MDM - Psych Lab Data: Labs: Lab Results 01/21/21 01/21/21 01/21/21 Range/Units 00:25 00:25 01:19 WBC 8.7 (4.0-10.0) 10^3/ uL RBC 5.01 (4.1-5.3) 10^6/u L Hgb 15.3 (11.7-16.6) g/dL Hct 47.2 (42.0-52.0) % MCV 94.2 H (80-94) fL MCH 30.5 (28.0-34.0) pg MCHC 32.4 (30.0-36.0) g/dL RDW 13.2 (12.1-15.1) % Plt Count 332 (130-400) 10^3/c mm MPV 9.5 (7.4-10.4) fL Neut % (Auto) 45.9 % Lymph % (Auto) 39.6 % [place] % (Auto) 6.6 % Eos % (Auto) 6.6 % Baso % (Auto) 1.2 % Neut # (Auto) 3.98 (1.8-7.7) 10^3/u L Lymph # (Auto) 3.4 (0.8-4.8) 10^3/u L [place] # (Auto) 0.6 (0.2-0.9) 10^3/u L Eos # (Auto) 0.6 (0.0-0.8) 10^3/u L Baso # (Auto) 0.1 (0.0-0.1) 10^3/u L Nucleated RBC % (a uto) 0 % Nucleated RBCs # 0.0 /100WBC Sodium 144 (136-145) mmol/L Potassium 4.6 (3.5-5.1) mmol/L Chloride 104 (98-107) mmol/L Carbon Dioxide 31 H (22-29) mmol/L Anion Gap 13.6 (5-19) BUN 12 (6-20) mg/dL Creatinine 0.9 (0.7-1.2) mg/dL GFR Calculation 95.5 (90-130) mL/min Glucose 92 (65-115) mg/dL Calculated Osmolal ity 297 H (285-295) mOsm/k g Calcium 9.4 (8.5-10.5) mg/dL Total Bilirubin 0.2 (0.15-1.2) mg/dL AST 30 (0-40) U/L ALT 33 (0-41) U/L Alkaline Phosphata se 77 (40-130) IU/L Total Protein 7.6 (6.6-8.7) g/dL Albumin 4.8 (3.5-5.2) g/dL Globulin 2.8 (1.3-4.6) g/dL TSH 13.53 H (0.27-4.20) uIU/ mL Urine Color Yellow (Yellow) Urine Appearance Clear (CLEAR) Urine pH 5 (5-7) Ur Specific Gravit y 1.020 (1.005-1.030) Urine Protein Neg (Negative) Urine Glucose (UA) Norm (Normal) Urine Ketones Negative (Negative) Urine Blood Neg (Negative) Urine Nitrate Negative (Negative) Urine Bilirubin Neg (Negative) Urine Urobilinogen Norm (Negative) mg/dL Ur Leukocyte Gosia ase Negative (Negative) Salicylates < 0.3 L (3-10) mg/dL Urine Opiates Scre en (Negative) ng/mL Acetaminophen < 5.0 L (10-30) ug/mL Ur Barbiturates Sc reen (Negative) ng/mL Ur Phencyclidine S crn (Negative) ng/mL Ur Amphetamines Sc reen (Negative) ng/mL U Benzodiazepines Scrn (Negative) ng/mL Urine Cocaine Scre en (Negative) ng/mL U Marijuana (THC) Screen (Negative) ng/mL Ethyl Alcohol 270 H (0-10) mg/dL 01/21/21 01/21/21 Range/Units 01:19 04:47 WBC (4.0-10.0) 10^3/ uL RBC (4.1-5.3) 10^6/u L Hgb (11.7-16.6) g/dL Hct (42.0-52.0) % MCV (80-94) fL MCH (28.0-34.0) pg MCHC (30.0-36.0) g/dL RDW (12.1-15.1) % Plt Count (130-400) 10^3/c mm MPV (7.4-10.4) fL Neut % (Auto) % Lymph % (Auto) % [place] % (Auto) % Eos % (Auto) % Baso % (Auto) % Neut # (Auto) (1.8-7.7) 10^3/u L Lymph # (Auto) (0.8-4.8) 10^3/u L [place] # (Auto) (0.2-0.9) 10^3/u L Eos # (Auto) (0.0-0.8) 10^3/u L Baso # (Auto) (0.0-0.1) 10^3/u L Nucleated RBC % (a uto) % Nucleated RBCs # /100WBC Sodium (136-145) mmol/L Potassium (3.5-5.1) mmol/L Chloride (98-107) mmol/L Carbon Dioxide (22-29) mmol/L Anion Gap (5-19) BUN (6-20) mg/dL Creatinine (0.7-1.2) mg/dL GFR Calculation (90-130) mL/min Glucose (65-115) mg/dL Calculated Osmolal ity (285-295) mOsm/k g Calcium (8.5-10.5) mg/dL Total Bilirubin (0.15-1.2) mg/dL AST (0-40) U/L ALT (0-41) U/L Alkaline Phosphata se (40-130) IU/L Total Protein (6.6-8.7) g/dL Albumin (3.5-5.2) g/dL Globulin (1.3-4.6) g/dL TSH (0.27-4.20) uIU/ mL Urine Color (Yellow) Urine Appearance (CLEAR) Urine pH (5-7) Ur Specific Gravit y (1.005-1.030) Urine Protein (Negative) Urine Glucose (UA) (Normal) Urine Ketones (Negative) Urine Blood (Negative) Urine Nitrate (Negative) Urine Bilirubin (Negative) Urine Urobilinogen (Negative) mg/dL Ur Leukocyte Gosia ase (Negative) Salicylates (3-10) mg/dL Urine Opiates Scre en Negative (Negative) ng/mL Acetaminophen (10-30) ug/mL Ur Barbiturates Sc reen Negative (Negative) ng/mL Ur Phencyclidine S crn Negative (Negative) ng/mL Ur Amphetamines Sc reen Negative (Negative) ng/mL U Benzodiazepines Scrn Negative (Negative) ng/mL Urine Cocaine Scre en Negative (Negative) ng/mL U Marijuana (THC) Screen Positive H (Negative) ng/mL Ethyl Alcohol 199 H (0-10) mg/dL Discharge Plan Discharge Patient Disposition: Home Clinical Impression: Alcohol intoxication Qualifiers: Complication of substance-induced condition: uncomplicated Qualified Code(s): F10.920 - Alcohol use, unspecified with intoxication, uncomplicated Condition: Stable Prescriptions: No Action bupropion HCl 100 mg Tablet Sustained-Release 12 Hr 100 mg PO BID 30 Days Qty: 60 RF: 1 mirtazapine 15 mg Tablet 15 mg PO BEDTIME PRN (Reason: Insomnia) 30 Days Qty: 30 RF: 1 aripiprazole 10 mg Tablet 10 mg PO BEDTIME 30 Days Qty: 30 RF: 1 Discharge Orders: Discharge ED (Routine); Ordered 01/21/21 Ordered By: Eric Serna Referrals: Светлана Yu FNP-C [Primary Care Provider] - Discharge Diet: Advance as tolerated Discharge Activity: Limit activity as instructed Patient Instructions: Alcohol Intoxication (ED) Activity Restrictions/Additional Instructions: Return for any thoughts or wishes to harm your self or others. Abstain from alcohol Coding Level of Care Code ED Corporate Safety Director for [place] Fwd Exam Comprehensive Documented by User: Eric Serna, 01/21/21 06:45 HPI - Psych General: Chief Complaint: Psychiatric Symptoms Stated Complaint: etoh, si, hi Time Seen by Provider: 01/21/21 00:11 [facility] ED PFSH: Surgical History (Updated 09/16/20 @ 02:59 by Madeleine Soto) Hx of tonsillectomy Social History (Updated 08/11/20 @ 11:57 by LUIS Oscar) Smoking and tobacco status: current every day smoker Alcohol intake: unknown Marital status: Single MDM - Psych MDM Narrative: Medical decision making narrative: 35-year-old intoxicated male checked out to me by CHASIDY Frye. I agree with his history, evaluation, and treatment. This gentleman is resting comfortably. His vitals been completely stable. His alcohol level is down under 200. His mother's been called, he was the responsible adult coming to get him. This gentleman has never made any suicidal statements since being here. He has denied suicidality altogether. He will be allowed home Lab Data: Labs: Lab Results 01/21/21 01/21/21 01/21/21 Range/Units 00:25 00:25 01:19 WBC 8.7 (4.0-10.0) 10^3/ uL RBC 5.01 (4.1-5.3) 10^6/u L Hgb 15.3 (11.7-16.6) g/dL Hct 47.2 (42.0-52.0) % MCV 94.2 H (80-94) fL MCH 30.5 (28.0-34.0) pg MCHC 32.4 (30.0-36.0) g/dL RDW 13.2 (12.1-15.1) % Plt Count 332 (130-400) 10^3/c mm MPV 9.5 (7.4-10.4) fL Neut % (Auto) 45.9 % Lymph % (Auto) 39.6 % [place] % (Auto) 6.6 % Eos % (Auto) 6.6 % Baso % (Auto) 1.2 % Neut # (Auto) 3.98 (1.8-7.7) 10^3/u L Lymph # (Auto) 3.4 (0.8-4.8) 10^3/u L [place] # (Auto) 0.6 (0.2-0.9) 10^3/u L Eos # (Auto) 0.6 (0.0-0.8) 10^3/u L Baso # (Auto) 0.1 (0.0-0.1) 10^3/u L Nucleated RBC % (a uto) 0 % Nucleated RBCs # 0.0 /100WBC Sodium 144 (136-145) mmol/L Potassium 4.6 (3.5-5.1) mmol/L Chloride 104 (98-107) mmol/L Carbon Dioxide 31 H (22-29) mmol/L Anion Gap 13.6 (5-19) BUN 12 (6-20) mg/dL Creatinine 0.9 (0.7-1.2) mg/dL GFR Calculation 95.5 (90-130) mL/min Glucose 92 (65-115) mg/dL Calculated Osmolal ity 297 H (285-295) mOsm/k g Calcium 9.4 (8.5-10.5) mg/dL Total Bilirubin 0.2 (0.15-1.2) mg/dL AST 30 (0-40) U/L ALT 33 (0-41) U/L Alkaline Phosphata se 77 (40-130) IU/L Total Protein 7.6 (6.6-8.7) g/dL Albumin 4.8 (3.5-5.2) g/dL Globulin 2.8 (1.3-4.6) g/dL TSH 13.53 H (0.27-4.20) uIU/ mL Urine Color Yellow (Yellow) Urine Appearance Clear (CLEAR) Urine pH 5 (5-7) Ur Specific Gravit y 1.020 (1.005-1.030) Urine Protein Neg (Negative) Urine Glucose (UA) Norm (Normal) Urine Ketones Negative (Negative) Urine Blood Neg (Negative) Urine Nitrate Negative (Negative) Urine Bilirubin Neg (Negative) Urine Urobilinogen Norm (Negative) mg/dL Ur Leukocyte Gosia ase Negative (Negative) Salicylates < 0.3 L (3-10) mg/dL Urine Opiates Scre en (Negative) ng/mL Acetaminophen < 5.0 L (10-30) ug/mL Ur Barbiturates Sc reen (Negative) ng/mL Ur Phencyclidine S crn (Negative) ng/mL Ur Amphetamines Sc reen (Negative) ng/mL U Benzodiazepines Scrn (Negative) ng/mL Urine Cocaine Scre en (Negative) ng/mL U Marijuana (THC) Screen (Negative) ng/mL Ethyl Alcohol 270 H (0-10) mg/dL 01/21/21 01/21/21 Range/Units 01:19 04:47 WBC (4.0-10.0) 10^3/ uL RBC (4.1-5.3) 10^6/u L Hgb (11.7-16.6) g/dL Hct (42.0-52.0) % MCV (80-94) fL MCH (28.0-34.0) pg MCHC (30.0-36.0) g/dL RDW (12.1-15.1) % Plt Count (130-400) 10^3/c mm MPV (7.4-10.4) fL Neut % (Auto) % Lymph % (Auto) % [place] % (Auto) % Eos % (Auto) % Baso % (Auto) % Neut # (Auto) (1.8-7.7) 10^3/u L Lymph # (Auto) (0.8-4.8) 10^3/u L [place] # (Auto) (0.2-0.9) 10^3/u L Eos # (Auto) (0.0-0.8) 10^3/u L Baso # (Auto) (0.0-0.1) 10^3/u L Nucleated RBC % (a uto) % Nucleated RBCs # /100WBC Sodium (136-145) mmol/L Potassium (3.5-5.1) mmol/L Chloride (98-107) mmol/L Carbon Dioxide (22-29) mmol/L Anion Gap (5-19) BUN (6-20) mg/dL Creatinine (0.7-1.2) mg/dL GFR Calculation (90-130) mL/min Glucose (65-115) mg/dL Calculated Osmolal ity (285-295) mOsm/k g Calcium (8.5-10.5) mg/dL Total Bilirubin (0.15-1.2) mg/dL AST (0-40) U/L ALT (0-41) U/L Alkaline Phosphata se (40-130) IU/L Total Protein (6.6-8.7) g/dL Albumin (3.5-5.2) g/dL Globulin (1.3-4.6) g/dL TSH (0.27-4.20) uIU/ mL Urine Color (Yellow) Urine Appearance (CLEAR) Urine pH (5-7) Ur Specific Gravit y (1.005-1.030) Urine Protein (Negative) Urine Glucose (UA) (Normal) Urine Ketones (Negative) Urine Blood (Negative) Urine Nitrate (Negative) Urine Bilirubin (Negative) Urine Urobilinogen (Negative) mg/dL Ur Leukocyte Gosia ase (Negative) Salicylates (3-10) mg/dL Urine Opiates Scre en Negative (Negative) ng/mL Acetaminophen (10-30) ug/mL Ur Barbiturates Sc reen Negative (Negative) ng/mL Ur Phencyclidine S crn Negative (Negative) ng/mL Ur Amphetamines Sc reen Negative (Negative) ng/mL U Benzodiazepines Scrn Negative (Negative) ng/mL Urine Cocaine Scre en Negative (Negative) ng/mL U Marijuana (THC) Screen Positive H (Negative) ng/mL Ethyl Alcohol 199 H (0-10) mg/dL Discharge Plan Discharge Patient Disposition: Home Clinical Impression: Alcohol intoxication Qualifiers: Complication of substance-induced condition: uncomplicated Qualified Code(s): F10.920 - Alcohol use, unspecified with intoxication, uncomplicated Condition: Stable Prescriptions: No Action bupropion HCl 100 mg Tablet Sustained-Release 12 Hr 100 mg PO BID 30 Days Qty: 60 RF: 1 mirtazapine 15 mg Tablet 15 mg PO BEDTIME PRN (Reason: Insomnia) 30 Days Qty: 30 RF: 1 aripiprazole 10 mg Tablet 10 mg PO BEDTIME 30 Days Qty: 30 RF: 1 Discharge Orders: Discharge ED (Routine); Ordered 01/21/21 Ordered By: Eric Serna Referrals: Светлана Yu TREE TRIMMING LINE TECHNICIAN-C [Primary Care Provider] - Discharge Diet: Advance as tolerated Discharge Activity: Limit activity as instructed Patient Instructions: Alcohol Intoxication (ED) Activity Restrictions/Additional Instructions: Return for any thoughts or wishes to harm your self or others. Abstain from alcohol Coding Level of Care Code ED Corporate Safety Director for [place] Fwd Exam Comprehensive
[2021-01-21] MEDS: folic acid 1 MG, multivitamin inj 10 ML, thiamine 100 MG in sodium chloride 0.9% 1,000 ML 252.8 MG IV (01:01)
[2021-01-21] MEDS: LORazepam 2 mg/mL INJ 1 mL IVP (01:04)
[2021-01-21] MEDS: ziprasidone 20 mg/mL SDV IM (01:04)
[2021-01-21 01:31] LABS: Basophils # 0.1 10^3/uL (0.0-0.1); Basophils % 1.2 %; Eosinophils # 0.6 10^3/uL (0.0-0.8); Eosinophils % 6.6 %; Hematocrit 47.2 % (42.0-52.0); Hemoglobin 15.3 g/dL (11.7-16.6); Lymphocytes # 3.4 10^3/uL (0.8-4.8); Lymphocytes % 39.6 %; Mean Corpuscular HGB Conc 32.4 g/dL (30.0-36.0); Mean Corpuscular Hemoglobin 30.5 pg (28.0-34.0); Mean Corpuscular Volume 94.2 fL (80-94); Mean Platelet Volume 9.5 fL (7.4-10.4); Monocytes # 0.6 10^3/uL (0.2-0.9); Monocytes % 6.6 %; Neutrophils # 3.98 10^3/uL (1.8-7.7); Neutrophils % 45.9 %; Nucleated Red Blood Cells % 0 %; Platelet Count 332 10^3/cmm (130-400); Red Blood Count 5.01 10^6/uL (4.1-5.3); Red Cell Distribution Width 13.2 % (12.1-15.1); White Blood Count 8.7 10^3/uL (4.0-10.0)
[2021-01-21] MEDS: diphenhydrAMINE 50 mg/mL SDV 1mL IVP (01:50)
[2021-01-21 01:56] LABS: Alanine Aminotransferase 33 U/L (0-41); Albumin Level 4.8 g/dL (3.5-5.2); Alcohol Level 270 mg/dL (0-10); Alkaline Phosphatase 77 IU/L (40-130); Anion Gap 13.6 (5-19); Aspartate Amino Transferase 30 U/L (0-40); Blood Urea Nitrogen 12 mg/dL (6-20); Calcium 9.4 mg/dL (8.5-10.5); Carbon Dioxide 31 mmol/L (22-29); Chloride 104 mmol/L (98-107); Globulin 2.8 g/dL (1.3-4.6); Glomerular Filtration Rate 95.5 mL/min (90-130); Glucose 92 mg/dL (65-115); Osmolality Calculated 297 mOsm/kg (285-295); Potassium 4.6 mmol/L (3.5-5.1); Sodium 144 mmol/L (136-145); Thyroid Stimulating Hormone 13.53 uIU/mL (0.27-4.20); Total Bilirubin 0.2 mg/dL (0.15-1.2); Total Protein 7.6 g/dL (6.6-8.7)
[2021-01-21 01:57] LABS: Acetaminophen < 5.0 ug/mL (10-30); Salicylate < 0.3 mg/dL (3-10)
[2021-01-21 02:01] LABS: Add Urine Microscopic? NO
[2021-01-21 02:28] LABS: Bilirubin Urine Neg (Negative); Blood Urine Neg (Negative); Glucose Urine UA Norm (Normal); Ketones Urine Negative (Negative); Leukocyte Esterase Urine Negative (Negative); Nitrate Urine Negative (Negative); Protein Urine Neg (Negative); Urine Appearance Clear (CLEAR); Urine Color Yellow (Yellow); Urobilinogen Urine Norm (Negative); pH Urine 5 (5-7)
[2021-01-21 04:55] LABS: Amphetamines Screen Urine Negative (Negative); Barbiturates Screen Urine Negative (Negative); Benzodiazepines Screen Urine Negative (Negative); Cocaine Screen Urine Negative (Negative); Opiate Screen Urine Negative (Negative); PCP Screen Urine Negative (Negative); THC Screen Urine Positive (Negative)
[2021-01-21 05:21] LABS: Alcohol Level 199 mg/dL (0-10)
== END 2021-01-21 08:07 | disposition home or self-care (01) ==
PROVIDERS: Nurse Practitioner Family; Emergency Provider Emergency Medicine; PCP Nurse Practitioner Family
DX: F10.920 Alcohol use, unspecified with intoxication, uncomplicated (principal); Y90.8 Blood alcohol level of 240 mg/100 ml or more; F17.210 Nicotine dependence, cigarettes, uncomplicated
CPT/HCPCS: 80053; 80306; 80307; 81003; 84443; 85025; 96361; 96374; 96375; 99284; J1200; J2060; J3411; J3486; J3490; J7030

== ENCOUNTER 2021-08-21 08:34 | Emergency (ER) | payer SELFPAY ==
[2021-08-21 08:42] VITALS: BP 142/80; PULSE 90; RESP 20; TEMP 36.8; O2SAT 98; BMI 22.4
--- NOTE | 2021-08-21 08:48 | W.ED.DENTAL ---
HPI - Dental/Oral General: Chief complaint: Dental/Oral Stated complaint: ABSCESSED TOOTH Time Seen by Provider: 08/21/21 08:39 History of Present Illness: HPI Narrative: Patient is a 35-year-old male who comes to the ED with dental pain facial swelling. Symptoms started approximately 4 days ago. Patient has extensive dental caries has currently been put on a wait list with the dentist to have multiple teeth removed. Patient says he started having some pain 4 days ago and then over the past 2 days he has had some facial swelling. He rates his pain an 8 out of 10. His dental pain is in the upper right molar region. Associated symptoms: Denies fever(s) or odynophagia Review of Systems Const: Denies: fever(s), chills or fatigue Eyes: Denies: change in vision or eye discomfort ENMT: Reports: dental pain (right upper molar); Denies: throat pain, odynophagia, nasal discharge or nasal congestion Card: Denies: chest pain, palpitations, edema, swelling of feet/ankles, dyspnea on exertion or orthopnea Resp: Denies: dyspnea, productive cough or non-productive cough GI: Denies: abdominal pain, nausea, vomiting, diarrhea, constipation or hematochezia : Denies: flank pain, difficulty urinating, dysuria or hematuria Musc: Denies: neck pain, back pain or extremity swelling Skin/Breast: Denies: rash or new lesions Neuro: Denies: headache(s), numbness in extremities or weakness in extremities PFSH ED PFSH: Surgical History Hx of tonsillectomy Social History Smoking and tobacco status: current every day smoker Alcohol intake: unknown Marital status: Single Physical Exam Const: COMMON NORMALS: no acute distress, patient oriented x3 and alert GENERAL APPEARANCE: cooperative and comfortable HENMT: COMMON NORMALS: normocephalic HEAD & SCALP: normocephalic FACE & SINUS: edema on the right maxilla and Facial tenderness on exam of face and sinuses on the right maxilla MOUTH: Normal oral and palatal mucosa present TEETH & GINGIVA: Yes abnormal tooth and associated gingiva upper right third molar tender and with associated gingival edema and Yes poor dentition THROAT: posterior oropharynx normal and uvula midline Neck/C-Spine: COMMON NORMALS: supple GENERAL: Yes normal visual inspection Resp: COMMON NORMALS: normal respiratory effort, No retractions, No use of accessory muscles and clear to auscultation bilaterally AUSCULTATION: clear to auscultation bilaterally Cardio: COMMON NORMALS: regular rate, regular rhythm, S1 normal heart sound present, S2 normal heart sound present, No gallops present (Cardio), No clicks present (Cardio), No murmurs present (Cardio) and Peripheral pulses 2+ throughout RATE: regular rate RHYTHM: regular rhythm HEART SOUNDS: S1 normal heart sound present and S2 normal heart sound present PERIPHERAL PULSES: Peripheral pulses 2+ throughout GI: COMMON NORMALS: Normal to inspection, nondistended, normoactive bowel sounds present, Soft to palpation, non-tender and no masses PALPATION: Yes Soft to palpation : COMMON NORMALS: Yes no CVA tenderness BLADDER/KIDNEY EXAM: Yes no CVA tenderness Back/Pelvis: COMMON NORMALS: no CVA tenderness Extremity: COMMON NORMALS: normal to inspection Neuro: COMMON NORMALS: patient oriented x3 and moves all extremities SENSORIUM/ORIENTATION: Yes alert Skin: GENERAL SKIN EXAM: dry skin Course Vital Signs: Vital signs: Vital Signs Temperature 98.3 F 08/21/21 08:42 Pulse Rate 90 08/21/21 08:42 Respiratory Rate 20 H 08/21/21 08:42 Blood Pressure 142/80 08/21/21 08:42 Pulse Oximetry 98 08/21/21 08:42 MDM - Dental/Oral MDM Narrative: Medical decision making narrative: Patient is a 35-year-old male who comes to the ED with dental pain. Patient has right upper molar extensive dental caries with some gingival edema and right maxillary facial swelling. Patient has no trouble breathing and is currently contacting dentist to get an appointment set up. He is on a wait list for dentist right now. Patient was diagnosed with dental caries causing pain. He was discharged home on some clindamycin, ibuprofen and a Medrol Dosepak. Return to ED precautions given. Patient understood and agreed with plan. Discharge Plan Discharge Patient Disposition: Home Clinical Impression: Pain due to dental caries Condition: Stable Prescriptions: New clindamycin HCl 150 mg capsule 300 mg PO Q6H 7 Days Qty: 56 RF: 0 Medrol (Travon) 4 mg tablets,dose pack See Rx Instructions .ROUTE .COMPLEX Qty: 21 RF: 0 ibuprofen 800 mg tablet 800 mg PO Q8H PRN (Reason: pain) Qty: 20 RF: 0 No Action bupropion HCl 100 mg Tablet Sustained-Release 12 Hr 100 mg PO BID 30 Days Qty: 60 RF: 1 mirtazapine 15 mg Tablet 15 mg PO BEDTIME PRN (Reason: Insomnia) 30 Days Qty: 30 RF: 1 aripiprazole 10 mg Tablet 10 mg PO BEDTIME 30 Days Qty: 30 RF: 1 Discharge Orders: Discharge ED (Routine); Ordered 08/21/21 Ordered By: Rishi Joel Referrals: Светлана Yu, [employer] P[employer] ASSEMBLY MACHINE OPERATOR-C [Primary Care Provider] - Discharge Diet: Regular Discharge Activity: Resume usual activity Patient Instructions: Dental Caries (Cavities) Activity Restrictions/Additional Instructions: Contact a dentist and get set up with an appointment for them as soon as possible for further evaluation. Take medications as prescribed. Return to the ER or your medical provider if condition worsens. Please read and understand discharge instructions. Thank you for choosing [facility] for your healthcare needs today. Please realize this is an emergency room and that we are providing you with a medical screening exam and this may not be complete and all inclusive of all the testing and or work up that you may need to determine your ailment or severity of your illness. It is very important that you follow up as instructed or that you return to the Emergency Department should you have concerns or if your condition changes or worsens in any way. Coding Level of Care Code ED Logistics Operations Manager for Matty Garvin Exam Comprehensive
[2021-08-21] MEDS: HYDROcodone-acetaminophen 5-325 mg Tablet 1 TAB PO (08:56)
[2021-08-21 08:57] VITALS: BP 142/80; PULSE 88; RESP 18; O2SAT 98
== END 2021-08-21 08:58 | disposition home or self-care (01) ==
PROVIDERS: Emergency Provider Physician Assistant; PCP Nurse Practitioner Family
DX: K02.9 Dental caries, unspecified (principal); F17.210 Nicotine dependence, cigarettes, uncomplicated
CPT/HCPCS: 99282

== ENCOUNTER 2021-11-10 03:38 | Inpatient (IN) | payer SELFPAY ==
[2021-11-10 03:39] VITALS: BP 130/80; PULSE 90; RESP 22; TEMP 36.4; O2SAT 97; BMI 20.4
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
[2021-11-10] MEDS: LORazepam 2 mg/mL INJ 1 mL IM (04:01)
[2021-11-10] MEDS: ziprasidone 20 mg/mL SDV IM (04:01)
[2021-11-10 04:22] LABS: Amphetamines Screen Urine Positive (Negative); Barbiturates Screen Urine Negative (Negative); Benzodiazepines Screen Urine Negative (Negative); Cocaine Screen Urine Negative (Negative); Opiate Screen Urine Negative (Negative); PCP Screen Urine Negative (Negative); THC Screen Urine Positive (Negative)
[2021-11-10 04:38] LABS: Basophils # 0.1 10^3/uL (0.0-0.1); Basophils % 0.7 %; Eosinophils # 0.3 10^3/uL (0.0-0.8); Eosinophils % 2.3 %; Hematocrit 46.2 % (42.0-52.0); Hemoglobin 15.2 g/dL (11.7-16.6); Lymphocytes # 2.1 10^3/uL (0.8-4.8); Lymphocytes % 18.7 %; Mean Corpuscular HGB Conc 32.9 g/dL (30.0-36.0); Mean Corpuscular Volume 94.3 fl (80-94); Monocytes # 0.5 10^3/uL (0.2-0.9); Monocytes % 4.4 %; Neutrophils # 8.08 10^3/uL (1.8-7.7); Neutrophils % 73.5 %; Nucleated Red Blood Cells % 0 %; Platelet Count 283 10^3/cmm (130-400); Red Cell Distribution Width 13.3 % (12.1-15.1)
[2021-11-10 04:55] LABS: Alanine Aminotransferase 12 U/L (0-41); Albumin Level 4.6 g/dL (3.5-5.2); Alcohol Level 124 mg/dL (0-10); Alkaline Phosphatase 80 IU/L (40-130); Anion Gap 20.1 (5-19); Aspartate Amino Transferase 17 U/L (0-40); Blood Urea Nitrogen 10 mg/dL (6-20); Calcium 8.5 mg/dL (8.5-10.5); Carbon Dioxide 19 mmol/L (22-29); Chloride 107 mmol/L (98-107); Globulin 2.9 g/dL (1.3-4.6); Glomerular Filtration Rate 126.9 mL/min (90-130); Glucose 95 mg/dL (65-115); Osmolality Calculated 293 mOsm/kg (285-295); Potassium 4.1 mmol/L (3.5-5.1); Sodium 142 mmol/L (136-145); Total Bilirubin 0.2 mg/dL (0.15-1.2); Total Protein 7.5 g/dL (6.6-8.7)
[2021-11-10 04:57] LABS: Acetaminophen < 5.0 ug/mL (10-30); Salicylate < 0.3 mg/dL (3-10)
[2021-11-10 05:45] VITALS: BP 148/84; PULSE 92; RESP 18; O2SAT 96
--- NOTE | 2021-11-10 06:03 | PC.NURSE ---
Discharge note from me was in error. Should have been on patient in room 9.
[2021-11-10 06:44] VITALS: BP 111/74; PULSE 106; RESP 17; TEMP 36.9; O2SAT 97
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
[2021-11-10 14:00] VITALS: BP 105/67; PULSE 110; RESP 17; O2SAT 97
[2021-11-10] MEDS: nicotine 2 mg Gum BUCCAL (16:59)
[2021-11-10] MEDS: hyDROXYzine 25 mg Capsule 50 MG PO (16:59)
[2021-11-10] MEDS: OLANZapine 5 mg ODT PO (16:59)
[2021-11-10 19:43] VITALS: RESP 18
[2021-11-10] MEDS: trazodone 50 mg Tablet PO (20:36)
[2021-11-10] MEDS: mirtazapine 15 mg Tablet PO (20:36)
[2021-11-10] MEDS: risperiDONE 2 mg Tablet PO (20:36)
--- NOTE | 2021-11-10 20:36 | PC.NURSE ---
Trazadone administered for sleep aide.
[2021-11-11 06:00] VITALS: RESP 15
[2021-11-11] MEDS: nicotine 2 mg Gum BUCCAL ×2 (07:39→15:50)
[2021-11-11] MEDS: thiamine 100 mg Tablet PO (09:25)
[2021-11-11] MEDS: multivitamin therapeutic Tablet 1 TAB PO (09:25)
[2021-11-11] MEDS: folic acid 1 mg Tablet PO (09:25)
[2021-11-11] MEDS: buPROPion SR (12 HR) 150 mg Tablet PO (09:25)
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
[2021-11-11 14:00] VITALS: BP 106/71; PULSE 86; RESP 17; O2SAT 96
[2021-11-11] MEDS: mirtazapine 15 mg Tablet PO (20:15)
[2021-11-11] MEDS: risperiDONE 2 mg Tablet PO (20:15)
[2021-11-11 20:25] VITALS: BP 98/66; PULSE 93; RESP 17; O2SAT 99
[2021-11-12 06:00] VITALS: BP 103/69; PULSE 78; RESP 16; O2SAT 98; BMI 20.4
[2021-11-12] MEDS: nicotine 2 mg Gum BUCCAL (06:06)
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
[2021-11-12] MEDS: folic acid 1 mg Tablet PO (08:34)
[2021-11-12] MEDS: multivitamin therapeutic Tablet 1 TAB PO (08:34)
[2021-11-12] MEDS: ibuprofen 600 mg Tablet PO (08:34)
[2021-11-12] MEDS: buPROPion SR (12 HR) 150 mg Tablet PO (08:34)
[2021-11-12] MEDS: thiamine 100 mg Tablet PO (08:34)
[2021-11-12 10:12] VITALS: BP 103/69; PULSE 78; RESP 16; TEMP 36.9; O2SAT 98
== END 2021-11-12 11:15 | disposition home or self-care (01) | DRG 897 ==
LOC: ER 05:23 → NP 05:36
PROVIDERS: Admitting Provider Psychiatry & Neurology Psychiatry; Emergency Provider Emergency Medicine; PCP Nurse Practitioner Family; Visit Provider Psychiatry & Neurology Psychiatry
DX: F15.150 Other stimulant abuse with stimulant-induced psychotic disorder with delusions (principal); R45.851 Suicidal ideations; F10.129 Alcohol abuse with intoxication, unspecified; F41.8 Other specified anxiety disorders; F17.210 Nicotine dependence, cigarettes, uncomplicated; F15.10 Other stimulant abuse, uncomplicated; Z91.14 Patient's other noncompliance with medication regimen; F12.20 Cannabis dependence, uncomplicated
CPT/HCPCS: 70450; 80053; 80306; 80307; 85025; 96372; 99285; J2060; J3486

== ENCOUNTER 2021-11-19 00:24 | Emergency (ER) | payer SELFPAY ==
[2021-11-19 00:25] VITALS: BP 105/76; PULSE 72; RESP 18; TEMP 36.4; O2SAT 97; BMI 22.4
--- NOTE | 2021-11-19 00:25 | ECG_ITS ---
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 Measurements Intervals [place] Rate: 61 P: 72 UT: 191 QRS: 84 QRSD: 96 T: 65 QT: 391 QTc: 397 Interpretive Statements SINUS RHYTHM WITH SINUS ARRHYTHMIA Compared to ECG 09/07/2020 22:10:31 No significant changes Electronically Signed On 11-19-2021 20:17:05 FILTROSE CRUSHER by Mingo Mello M.D. [id number]
--- NOTE | 2021-11-19 00:25 | XRR_ITS ---
PROCEDURE INFORMATION: Exam: XR Chest Exam date and time: 11/19/2021 12:25 AM Age: 36 years old Clinical indication: Chest pressure; Patient HX: Chest pain; Additional info: Cp TECHNIQUE: Imaging protocol: XR of the chest. Views: 1 view. COMPARISON: CR XR ribs LT mn 3V w CXR1V [id number] 07/25/2020 7:31 AM FINDINGS: Lungs: Mild ill-defined opacity in the lateral lower left lung. The right lung is clear. Pleural spaces: There is no pleural effusion or pneumothorax. Heart/Mediastinum: Cardiomediastinal contours are unremarkable. Bones/joints: Bones are unremarkable. XR/XR chest 1V portable [id number] IMPRESSION: Left lower lung opacity suspicious for pneumonia.
--- NOTE | 2021-11-19 00:33 | ED_ITS ---
HPI - Chest Pain General: Chief Complaint: Chest Pain Stated Complaint: CHEST PAIN Time Seen by Provider: 11/19/21 00:25 Source: patient Mode of arrival: ambulatory Limitations: no limitations History of Present Illness: HPI narrative: 36-year-old male who states that he has been having chest pain throughout the day. He was seen at [facility] earlier this morning told that he had a pulled muscle. He states he has been having a cough for the last 2 days and started after that states the pain is sharp in nature most worse with movement palpation or if he coughs. Denies any shortness of breath denies any vomiting. He has had no recent long trips no history of blood clots no leg swelling no recent surgery. Associated symptoms: Deny abdominal pain, dyspnea, fever(s), nausea or vomiting Review of Systems Const: Denies: fever(s), chills, body aches or change in appetite Eyes: Denies: blurry vision or eye discomfort ENMT: Denies: throat pain or dental pain Card: Reports: chest pain Resp: Denies: dyspnea GI: Denies: abdominal pain, nausea, vomiting or diarrhea : Denies: dysuria Musc: Denies: neck pain or back pain Skin/Breast: Denies: rash Neuro: Denies: headache(s) Psych: Denies: depression Robert/Lymph: Denies: easy bruising All/Imm: Denies: urticaria PFSH ED PFSH: Surgical History Hx of tonsillectomy Social History Smoking and tobacco status: current every day smoker Alcohol intake: unknown Marital status: Single Physical Exam Const: COMMON NORMALS: no acute distress, patient oriented x3 and healthy appearing HENMT: COMMON NORMALS: normocephalic and atraumatic HEAD & SCALP: normocephalic and atraumatic Eye: COMMON NORMALS: Equal, round and reactive pupils present and EOMs intact bilaterally PUPIL: Yes Equal, round and reactive pupils present Neck/C-Spine: COMMON NORMALS: full ROM and supple Chest: COMMONS NORMALS: normal inspection of the chest OTHER: point tender over left chest Resp: COMMON NORMALS: normal respiratory effort, No retractions, No use of accessory muscles and clear to auscultation bilaterally AUSCULTATION: clear to auscultation bilaterally Cardio: COMMON NORMALS: regular rate, regular rhythm and No murmurs present (Cardio) RATE: regular rate RHYTHM: regular rhythm GI: COMMON NORMALS: Normal to inspection, nondistended, normoactive bowel sounds present, Soft to palpation, non-tender and no masses PALPATION: Yes Soft to palpation Extremity: COMMON NORMALS: normal to inspection and full ROM Neuro: COMMON NORMALS: patient oriented x3, moves all extremities and no focal motor deficits Psych: COMMON NORMALS: mental status grossly normal, Normal thought process present and cooperative THOUGHT PROCESS: Normal thought process present Skin: COMMON NORMALS: no rashes or lesions noted and no wounds GENERAL SKIN EXAM: no rashes or lesions noted Course Vital Signs: Vital signs: Vital Signs Temperature 97.6 F 11/19/21 00:25 Pulse Rate 90 11/19/21 02:14 Respiratory Rate 18 11/19/21 02:14 Blood Pressure 99/67 11/19/21 02:14 Pulse Oximetry 99 11/19/21 02:14 MDM - Chest Pain MDM Narrative: Medical decision making narrative: Patient presents with a left-sided chest pains atypical in nature could be a possible pneumonia is worse with deep inspiration and coughing no signs of pulmonary embolism or cardiac cause we will start him doxycycline Naprosyn he is stable for discharge is to follow-up with PCP and return if worsening. Lab Data: Labs: Lab Results 11/19/21 11/19/21 11/19/21 01:09 01:09 01:48 WBC 8.8 10^3/uL 10^3/ uL (4.0-10.0) RBC 4.74 10^6/uL 10^6 /uL (4.1-5.3) Hgb 14.4 g/dL g/dL (11.7-16.6) Hct 43.7 % % (42.0-52.0) MCV 92.2 fl fl (80-94) MCH 30.4 pg pg (28.0-34.0) MCHC 33.0 g/dL g/dL (30.0-36.0) RDW 13.1 % % (12.1-15.1) Plt Count 295 10^3/cmm 10^3 /cmm (130-400) MPV 9.3 fL fL (7.4-10.4) Neut % (Auto) 64.5 % % Lymph % (Auto) 22.6 % % [place] % (Auto) 8.1 % % Eos % (Auto) 4.1 % % Baso % (Auto) 0.5 % % Neut # (Auto) 5.64 10^3/uL 10^3 /uL (1.8-7.7) Lymph # (Auto) 2.0 10^3/uL 10^3/ uL (0.8-4.8) [place] # (Auto) 0.7 10^3/uL 10^3/ uL (0.2-0.9) Eos # (Auto) 0.4 10^3/uL 10^3/ uL (0.0-0.8) Baso # (Auto) 0.0 10^3/uL 10^3/ uL (0.0-0.1) Nucleated RBC % (a uto) 0 % % Nucleated RBCs # 0.0 /100WBC /100W BC Sodium 139 mmol/L mmol/L (136-145) Potassium 4.6 mmol/L mmol/L (3.5-5.1) Chloride 105 mmol/L mmol/L (98-107) Carbon Dioxide 27 mmol/L mmol/L (22-29) Anion Gap 11.6 (5-19) BUN 11 mg/dL mg/dL (6-20) Creatinine 0.8 mg/dL mg/dL (0.7-1.2) GFR Calculation 108.8 mL/min mL/m in (90-130) Glucose 85 mg/dL mg/dL (65-115) Calculated Osmolal ity 287 mOsm/kg mOsm/ kg (285-295) Calcium 8.7 mg/dL mg/dL (8.5-10.5) Total Bilirubin 0.2 mg/dL mg/dL (0.15-1.2) AST 16 U/L U/L (0-40) ALT 11 U/L U/L (0-41) Alkaline Phosphata se 70 IU/L IU/L (40-130) Troponin T Baselin e 6 ng/L ng/L (0-15) Total Protein 6.8 g/dL g/dL (6.6-8.7) Albumin 4.1 g/dL g/dL (3.5-5.2) Globulin 2.7 g/dL g/dL (1.3-4.6) EKG Data^: EKG 1: Attestation: I personally reviewed and interpreted this EKG as follows: EKG interpretation date: 11/19/21 EKG interpretation time: 00:58 Interpretation: nsr hr [address] or t wave abnormalities qrs 96 qtc 395 Discharge Plan Discharge Patient Disposition: Home Clinical Impression: Atypical chest pain Pneumonia Qualifiers: Pneumonia type: due to unspecified organism Laterality: left Lung location: lower lobe of lung Qualified Code(s): J18.9 - Pneumonia, unspecified organism Condition: Stable Prescriptions: New Naprosyn 500 mg tablet 500 mg PO BID PRN (Reason: pain) Qty: 20 RF: 0 doxycycline hyclate 100 mg tablet 100 mg PO BID 7 Days Qty: 14 RF: 0 No Action bupropion HCl 150 mg Tablet Sustained-Release 12 Hr 150 mg PO BID 30 Days Qty: 60 RF: 1 risperidone 2 mg Tablet 2 mg PO BEDTIME 30 Days Qty: 30 RF: 1 mirtazapine 15 mg Tablet 15 mg PO BEDTIME 30 Days Qty: 30 RF: 1 Discharge Orders: Discharge ED (Routine); Ordered 11/19/21 Ordered By: Colette Ponce Referrals: Светлана Yu EQUITY ANALYST-C [Primary Care Provider] - Discharge Diet: Advance as tolerated Discharge Activity: Resume usual activity Patient Instructions: Pneumonia (ED) Coding Level of Care Code ED Mechanical Adjuster for Chg Fwd Exam Comprehensive
[2021-11-19 01:39] LABS: Basophils % 0.5 %; Eosinophils # 0.4 10^3/uL (0.0-0.8); Eosinophils % 4.1 %; Hematocrit 43.7 % (42.0-52.0); Hemoglobin 14.4 g/dL (11.7-16.6); Lymphocytes % 22.6 %; Mean Corpuscular Hemoglobin 30.4 pg (28.0-34.0); Mean Corpuscular Volume 92.2 fl (80-94); Mean Platelet Volume 9.3 fL (7.4-10.4); Monocytes # 0.7 10^3/uL (0.2-0.9); Monocytes % 8.1 %; Neutrophils # 5.64 10^3/uL (1.8-7.7); Neutrophils % 64.5 %; Nucleated Red Blood Cells % 0 %; Platelet Count 295 10^3/cmm (130-400); Red Blood Count 4.74 10^6/uL (4.1-5.3); Red Cell Distribution Width 13.1 % (12.1-15.1); White Blood Count 8.8 10^3/uL (4.0-10.0)
[2021-11-19] MEDS: ketorolac 30 mg/mL INJ 15 MG IVP (01:52)
[2021-11-19 01:56] VITALS: BP 106/75; PULSE 70; RESP 16; O2SAT 97
[2021-11-19 01:58] LABS: Troponin(5th) Baseline 6 ng/L (0-15)
[2021-11-19 02:07] LABS: Alanine Aminotransferase 11 U/L (0-41); Albumin Level 4.1 g/dL (3.5-5.2); Alkaline Phosphatase 70 IU/L (40-130); Anion Gap 11.6 (5-19); Aspartate Amino Transferase 16 U/L (0-40); Blood Urea Nitrogen 11 mg/dL (6-20); Calcium 8.7 mg/dL (8.5-10.5); Carbon Dioxide 27 mmol/L (22-29); Chloride 105 mmol/L (98-107); Globulin 2.7 g/dL (1.3-4.6); Glomerular Filtration Rate 108.8 mL/min (90-130); Glucose 85 mg/dL (65-115); Osmolality Calculated 287 mOsm/kg (285-295); Potassium 4.6 mmol/L (3.5-5.1); Sodium 139 mmol/L (136-145); Total Bilirubin 0.2 mg/dL (0.15-1.2); Total Protein 6.8 g/dL (6.6-8.7)
[2021-11-19 02:14] VITALS: BP 99/67; PULSE 90; RESP 18; O2SAT 99
[2021-11-19] MEDS: doxycycline 100 mg Tablet PO (02:14)
== END 2021-11-19 02:16 | disposition home or self-care (01) ==
PROVIDERS: Emergency Provider Emergency Medicine; PCP Nurse Practitioner Family
DX: R07.89 Other chest pain (principal); J18.9 Pneumonia, unspecified organism; F17.210 Nicotine dependence, cigarettes, uncomplicated
CPT/HCPCS: 71045; 80053; 84484; 85025; 93005; 96374; 99284; J1885

== ENCOUNTER 2022-01-24 21:58 | Inpatient (IN) | payer SELFPAY ==
[2022-01-24 22:10] VITALS: BP 123/69; PULSE 96; RESP 20; TEMP 36.4; O2SAT 99; BMI 3124.4
--- NOTE | 2022-01-24 22:22 | W.ED.PSYCHS ---
HPI - Psych General: Chief Complaint: Psychiatric Symptoms Stated Complaint: psych Time Seen by Provider: 01/24/22 22:22 [facility] ED PFSH: Surgical History Hx of tonsillectomy Social History Smoking and tobacco status: current every day smoker Alcohol intake: unknown Marital status: Single Course Vital Signs: Vital signs: Vital Signs Temperature 97.6 F 01/24/22 22:10 Pulse Rate 96 01/24/22 22:10 Respiratory Rate 20 H 01/24/22 22:10 Blood Pressure 123/69 01/24/22 22:10 Pulse Oximetry 99 01/24/22 22:10 Discharge Plan Discharge Condition: Stable Prescriptions: No Action bupropion HCl 150 mg Tablet Sustained-Release 12 Hr 150 mg PO BID 30 Days Qty: 60 1RF risperidone 2 mg Tablet 2 mg PO BEDTIME 30 Days Qty: 30 1RF mirtazapine 15 mg Tablet 15 mg PO BEDTIME 30 Days Qty: 30 1RF Naprosyn 500 mg tablet 500 mg PO BID PRN (Reason: pain) Qty: 20 0RF Referrals: Светлана Yu INTERNAL INVESTIGATOR-C [Primary Care Provider] - Coding Level of Care Code ED Recreation Facility Attendant for Matty Garvin
--- NOTE | 2022-01-24 22:29 | ED.C_ITS ---
HPI - Psych General: Chief Complaint: Psychiatric Symptoms Stated Complaint: psych Time Seen by Provider: 01/24/22 22:22 Source: patient Mode of arrival: ambulatory Limitations: no limitations History of Present Illness: 36-year-old male history of methamphetamine abuse states that he he has been having severe anxiety along with some hallucinations. He states that he just feels out of his mind and wants to get help. Denies any suicidality or homicidality but states that he wants to be admitted the psych real for help for his psychosis. Denies any worsening improving factors. Associated symptoms: Reports auditory hallucinations Review of Systems Const: Denies: fever(s), chills, body aches or change in appetite Eyes: Denies: blurry vision or eye discomfort ENMT: Denies: throat pain or dental pain Card: Denies: chest pain Resp: Denies: dyspnea GI: Denies: abdominal pain, nausea, vomiting or diarrhea : Denies: dysuria Musc: Denies: neck pain or back pain Skin/Breast: Denies: rash Neuro: Denies: headache(s) Psych: Reports: anxiety, paranoia and auditory hallucinations Robert/Lymph: Denies: easy bruising All/Imm: Denies: urticaria PFSH ED PFSH: Surgical History Hx of tonsillectomy Social History Smoking and tobacco status: current every day smoker Alcohol intake: unknown Marital status: Single Physical Exam Const: COMMON NORMALS: no acute distress and patient oriented x3 GENERAL APPEARANCE: disheveled HENMT: COMMON NORMALS: normocephalic and atraumatic HEAD & SCALP: normocephalic and atraumatic Eye: COMMON NORMALS: Equal, round and reactive pupils present and EOMs intact bilaterally PUPIL: Yes Equal, round and reactive pupils present Neck/C-Spine: COMMON NORMALS: full ROM and supple Chest: COMMONS NORMALS: normal inspection of the chest and normal palpation of entire chest wall Resp: COMMON NORMALS: normal respiratory effort, No retractions, No use of accessory muscles and clear to auscultation bilaterally AUSCULTATION: clear to auscultation bilaterally Cardio: COMMON NORMALS: regular rate, regular rhythm and No murmurs present (Cardio) RATE: regular rate RHYTHM: regular rhythm GI: COMMON NORMALS: Normal to inspection, nondistended, normoactive bowel sounds present, Soft to palpation, non-tender and no masses PALPATION: Yes Soft to palpation Extremity: COMMON NORMALS: normal to inspection and full ROM Neuro: COMMON NORMALS: patient oriented x3, moves all extremities and no focal motor deficits Psych: COMMON NORMALS: mental status grossly normal, Normal thought process present and cooperative THOUGHT PROCESS: Normal thought process present THOUGHT CONTENT: No Suicidality present, No Homicidality present and Yes Hallucination(s) present Skin: COMMON NORMALS: no rashes or lesions noted and no wounds GENERAL SKIN EXAM: no rashes or lesions noted Course Vital Signs: Vital signs: Vital Signs Temperature 97.6 F 01/24/22 22:10 Pulse Rate 96 01/24/22 22:10 Respiratory Rate 20 H 01/24/22 22:10 Blood Pressure 123/69 01/24/22 22:10 Pulse Oximetry 99 01/24/22 22:10 [facility] - Psych Medical Decision Making Patient presents here with hallucinations psychosis likely from methamphetamine abuse. He is not homicidal or suicidal and voluntarily wants to be admitted to the psych unit I spoke to Dr. Rosales and will admit at this time he is medically cleared. Lab Data : 01/24/22 22:01/24/22: Laboratory Results WBC 9.6 10^3/uL (4.0-10.0) 01/24/22: RBC 4.95 10^6/uL (4.1-5.3) 01/24/22: Hgb 15.0 g/dL (11.7-16.6) 01/24/22: Hct 45.5 % (42.0-52.0) 01/24/22: MCV 91.9 fl (80-94) 01/24/22: MCH 30.3 pg (28.0-34.0) 01/24/22: MCHC 33.0 g/dL (30.0-36.0) 01/24/22: RDW 12.9 % (12.1-15.1) 01/24/22: Plt Count 333 10^3/cmm (130-400) 01/24/22: MPV 8.9 fL (7.4-10.4) 01/24/22: Neut % (Auto) 68.8 % 01/24/22: Lymph % (Auto) 22.5 % 01/24/22: [place] % (Auto) 6.7 % 01/24/22: Eos % (Auto) 1.1 % 01/24/22: Baso % (Auto) 0.7 % 01/24/22 Neut # (Auto) 6.59 10^3/uL (1.8-7.7) 01/24/22: Lymph # (Auto) 2.2 10^3/uL (0.8-4.8) 01/24/22 [place] # (Auto) 0.6 10^3/uL (0.2-0.9) 01/24/22: Eos # (Auto) 0.1 10^3/uL (0.0-0.8) 01/24/22: Baso # (Auto) 0.1 10^3/uL (0.0-0.1) 01/24/22: Nucleated RBC % (auto) 0 % 01/24/22 Nucleated RBCs # 0.0 /100WBC 01/24/22 Sodium 137 mmol/L (136-145) 01/24/22: Potassium 4.1 mmol/L (3.5-5.1) 01/24/22: Chloride 100 mmol/L (98-107) 01/24/22: Carbon Dioxide 25 mmol/L (22-29) 01/24/22: Anion Gap 16.1 (5-19) 01/24/22: BUN 13 mg/dL (6-20) 01/24/22: Creatinine 0.9 mg/dL (0.7-1.2) 01/24/22: GFR Calculation 95.0 mL/min (90-130) 01/24/22: Glucose 97 mg/dL (65-115) 01/24/22: Calculated Osmolality 284 mOsm/kg (285-295) L 01/24/22 Calcium 10.1 mg/dL (8.5-10.5) 01/24/22 22:28 Total Bilirubin 0.5 mg/dL (0.15-1.2) 01/24/22 22:28 AST 25 U/L (0-40) 01/24/22 22:28 ALT 19 U/L (0-41) 01/24/22 22:28 Alkaline Phosphatase 77 IU/L (40-130) 01/24/22 22:28 Total Protein 7.1 g/dL (6.6-8.7) 01/24/22 22: Albumin 5.3 g/dL (3.5-5.2) H 01/24/22 22: Globulin 1.8 g/dL (1.3-4.6) 01/24/22 22: Salicylates < 0.3 mg/dL (3-10) L 01/24/22 22:28 Urine Opiates Screen Negative ng/mL (Negative) 01/24/22 22:41 Acetaminophen < 5.0 ug/mL (10-30) L 01/24/22 22:28 Ur Barbiturates Screen Negative ng/mL (Negative) 01/24/22 22:41 Ur Phencyclidine Scrn Negative ng/mL (Negative) 01/24/22 22:41 Ur Amphetamines Screen Positive ng/mL (Negative) H 01/24/22 22:41 U Benzodiazepines Scrn Negative ng/mL (Negative) 01/24/22 22:41 Urine Cocaine Screen Negative ng/mL (Negative) 01/24/22 22:41 U Marijuana (THC) Screen Positive ng/mL (Negative) H 01/24/22 22:41 Ethyl Alcohol < 10 mg/dL (0-10) 01/24/22 22:28 Discharge Plan Discharge Patient Disposition: Admitted As Inpatient Clinical Impression: Acute psychosis, Methamphetamine abuse Condition: Stable Coding Level of Care Code ED Pressure Controller for Matty Fwray Exam Comprehensive
[2022-01-24 22:36] LABS: Basophils # 0.1 10^3/uL (0.0-0.1); Basophils % 0.7 %; Eosinophils # 0.1 10^3/uL (0.0-0.8); Eosinophils % 1.1 %; Hematocrit 45.5 % (42.0-52.0); Lymphocytes # 2.2 10^3/uL (0.8-4.8); Lymphocytes % 22.5 %; Mean Corpuscular Hemoglobin 30.3 pg (28.0-34.0); Mean Corpuscular Volume 91.9 fl (80-94); Mean Platelet Volume 8.9 fL (7.4-10.4); Monocytes # 0.6 10^3/uL (0.2-0.9); Monocytes % 6.7 %; Neutrophils # 6.59 10^3/uL (1.8-7.7); Neutrophils % 68.8 %; Nucleated Red Blood Cells % 0 %; Platelet Count 333 10^3/cmm (130-400); Red Blood Count 4.95 10^6/uL (4.1-5.3); Red Cell Distribution Width 12.9 % (12.1-15.1); White Blood Count 9.6 10^3/uL (4.0-10.0)
[2022-01-24 22:58] LABS: Alanine Aminotransferase 19 U/L (0-41); Albumin Level 5.3 g/dL (3.5-5.2); Alkaline Phosphatase 77 IU/L (40-130); Anion Gap 16.1 (5-19); Aspartate Amino Transferase 25 U/L (0-40); Blood Urea Nitrogen 13 mg/dL (6-20); Calcium 10.1 mg/dL (8.5-10.5); Carbon Dioxide 25 mmol/L (22-29); Chloride 100 mmol/L (98-107); Globulin 1.8 g/dL (1.3-4.6); Glucose 97 mg/dL (65-115); Osmolality Calculated 284 mOsm/kg (285-295); Potassium 4.1 mmol/L (3.5-5.1); Sodium 137 mmol/L (136-145); Total Bilirubin 0.5 mg/dL (0.15-1.2); Total Protein 7.1 g/dL (6.6-8.7)
[2022-01-24 22:59] LABS: Amphetamines Screen Urine Positive (Negative); Barbiturates Screen Urine Negative (Negative); Benzodiazepines Screen Urine Negative (Negative); Cocaine Screen Urine Negative (Negative); Opiate Screen Urine Negative (Negative); PCP Screen Urine Negative (Negative); THC Screen Urine Positive (Negative)
[2022-01-24] MEDS: LORazepam 2 mg Tablet PO (23:01)
[2022-01-24 23:02] LABS: Acetaminophen < 5.0 ug/mL (10-30); Alcohol Level < 10 mg/dL (0-10); Salicylate < 0.3 mg/dL (3-10)
[2022-01-25 00:07] VITALS: BP 106/69; PULSE 69; RESP 20; O2SAT 99
[2022-01-25 01:10] VITALS: BP 121/88; PULSE 98; RESP 17; TEMP 36.6; O2SAT 97
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
[2022-01-25 06:24] VITALS: BP 101/53; PULSE 88; RESP 17; TEMP 36.6; O2SAT 99
[2022-01-25 14:00] VITALS: BP 112/68; PULSE 74; RESP 16; TEMP 36.4; O2SAT 98
[2022-01-25] MEDS: OLANZapine 5 mg ODT PO (15:29)
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
[2022-01-25] MEDS: nicotine 2 mg Gum BUCCAL (16:58)
[2022-01-25 19:00] VITALS: BP 96/60; PULSE 61; RESP 16; TEMP 36.5; O2SAT 98
[2022-01-25] MEDS: risperiDONE 2 mg Tablet PO (20:18)
[2022-01-25] MEDS: mirtazapine 15 mg Tablet PO (20:18)
[2022-01-26 06:00] VITALS: BP 103/64; PULSE 66; RESP 18; TEMP 36.6; O2SAT 100
[2022-01-26] MEDS: buPROPion XL (24 HR) 150 mg Tablet PO (08:32)
--- NOTE | 2022-01-26 09:43 | W.PM.NPUDCS ---
Diagnoses at Discharge Discharge Diagnosis (1) Methamphetamine abuse: Status: Acute (2) Cannabis use disorder, moderate, dependence: Status: Acute (3) Anxiety: Status: Acute (4) Depressive disorder: Status: Acute (5) Acute psychosis: Status: Acute Reason for Visit Reason for Visit: psych Brief History: 36-year-old male history of methamp hetamine abuse sta tommy that he he has been having sever e anxiety along wi th some hallucinat ions.? He states t hat he just feels out of his mind an d wants to get hel p.? Denies any alan cidality or homici dality but states that he wants to b e admitted the [facility] for help f or his psychosis.? Denies any worsen ing improving fact ors.Associated sym ptoms: Reports aud itory hallucinatio ns He was admitted to the neuropsychiatry unit for definitive treatment of these issues.? He says that he was never able to get his medication after his last hospitalization.? He continues to be anxious and depressed.? He started using methamphetamine.? He says that this last few days he was so confused.? He says that the people in the [facility] town are all bullies and pick on him.? He said that he started working at this 1 place where he had worked before.? 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 He said it was confusing because the pauline had no use for an impact from time.? He believes that the pauline won the impact that.? He thinks that he that that the patient would make it through the day.? Evidently another person did not think that he would make it through the day at work because of anxiety and may do better with this other worker.? He thinks that soon everything is going to come to ahead in that small town and most people are going to get sent to senior living.? He thinks that the whole town will shut down.? He does not think that he hears voices but thinks that he misinterprets what people say. Hospital Course Hospital Course He slowly acclimated to the individual, group and milieu therapies provided. He was restarted on his previous medications of Wellbutrin 300 mg in the morning, Remeron 15 mg at bedtime and risperidone 2 mg at bedtime. He tolerated these doses and showed steady improvement during his stay. He was able to contract for safety outside hospital prior to discharge. During the hospitalization, patient had routine laboratory studies which were within normal limits except for few outliers. Additionally there was a general medical evaluation which was also within normal limits and revealed no new acute processes. Discharge Summary: At the time of discharge, lethality was denied and psychosis was resolving. He was adamant that he was not going to use methamphetamine again. This episode has scared him. Mood and anxiety were well managed. Patient endorsed a plan to follow-up with the aftercare recommendations of the treatment team. Patient was evaluated and deemed to be absent credible lethality, and had achieved the maximum benefit from an inpatient hospitalization, so was discharged. Involuntary Hold Information 96 Hour Hold: 96 Hour Involuntary Admission: Yes 96 Hour Hold Ending Date: 11/17/21 96 Hour Hold Ending Time: 00:01 Mental Status Exam MSE Comments: This is a 36-year-old male who appears approximately his stated age and is in no acute distress. He is pleasant and cooperative with the evaluation. He is fairly groomed and in hospital scrubs. psychomotor activity is normal. Speech is at a regular rate and rhythm, normal volume, good articulation, not pressured. Alert, oriented X3 Attention and concentration appears to be normal. Memory is intact Mood is mildly depressed. Affect is mildly dysphoric. Thought process is logical and goal-directed. Thought content: Denies auditory and visual hallucinations. He he says that he realizes that he was misinterpreting what people were saying. He says that has not happened since yesterday. No current suicidal ideation, and no homicidal ideation. Fund of knowledge is average. Insight and judgment appear to be improved. Impulse control is poor. Cognition: Patient Appearance: Appropriate Level of Consciousness: Awake, Alert, Appropriate and Follows Commands Patient Cognition Impaired: No Ability to Follow Directions: Fair Patient Orientation (long list): Person, Place and Time Comprehension Ability: Mild Impairment Hallucination Type: None Delusion Description: Paranoid Ideation Thought Process: Indecisive Affect: Affect Description: Appropriate and Calm Depressive Symptoms: Difficulty Concentrating, Difficulty Making Decisions, Hopelessness and Increased Anxiety Behavior: Patient Behavior: Appropriate and Cooperative Speech Pattern: Appropriate and Clear Discharge Data Studies Completed and Pending: Laboratory Results WBC 9.6 10^3/uL (4.0- 10.0) 01/24/22: RBC 4.95 10^6/uL (4.1 -5.3) 01/24/22: Hgb 15.0 g/dL (11.7-1 6.6) 01/24/22: Hct 45.5 % (42.0-52.0 ) 01/24/22: MCV 91.9 fl (80-94) 01/24/22: MCH 30.3 pg (28.0-34. 0) 01/24/22: MCHC 33.0 g/dL (30.0-3 6.0) 01/24/22: RDW 12.9 % (12.1-15.1 ) 01/24/22 Plt Count 333 10^3/cmm (130 -400) 01/24/22 MPV 8.9 fL (7.4-10.4) 01/24/22: Neut % (Auto) 68.8 % 01/24/22: Lymph % (Auto) 22.5 % 01/24/22: Canyon % (Auto) 6.7 % 01/24/22: Eos % (Auto) 1.1 % 01/24/22: Baso % (Auto) 0.7 % 01/24/22 Neut # (Auto) 6.59 10^3/uL (1.8 -7.7) 01/24/22: Lymph # (Auto) 2.2 10^3/uL (0.8- 4.8) 01/24/22: Canyon # (Auto) 0.6 10^3/uL (0.2- 0.9) 01/24/22: Eos # (Auto) 0.1 10^3/uL (0.0- 0.8) 01/24/22: Baso # (Auto) 0.1 10^3/uL (0.0- 0.1) 01/24/22 Nucleated RBC % (a uto) 0 % 01/24/22 Nucleated RBCs # 0.0 /100WBC 01/24/22: Sodium 137 mmol/L (136-1 45) 01/24/22: Potassium 4.1 mmol/L (3.5-5 .1) 01/24/22: Chloride 100 mmol/L (98-10 7) 01/24/22: Carbon Dioxide 25 mmol/L (22-29) 01/24/22: Anion Gap 16.1 (5-19) 01/24/22: BUN 13 mg/dL (6-20) 01/24/22: Creatinine 0.9 mg/dL (0.7-1. 2) 01/24/22: GFR Calculation 95.0 mL/min (90-1 30) 01/24/22: Glucose 97 mg/dL (65-115) 01/24/22: Calculated Osmolal ity 284 mOsm/kg (285- 295) L 01/24/22: Calcium 10.1 mg/dL (8.5-1 0.5) 01/24/22: Total Bilirubin 0.5 mg/dL (0.15-1 .2) 01/24/22: AST 25 U/L (0-40) 01/24/22: ALT 19 U/L (0-41) 01/24/22: Alkaline Phosphata se 77 IU/L (40-130) 01/24/22: Total Protein 7.1 g/dL (6.6-8.7 ) 01/24/22: Albumin 5.3 g/dL (3.5-5.2 ) H 01/24/22: Globulin 1.8 g/dL (1.3-4.6 ) 01/24/22: Salicylates < 0.3 mg/dL (3-10 ) L 01/24/22 22: Urine Opiates Scre en Negative ng/mL (N egative) 01/24/22: Acetaminophen < 5.0 ug/mL (10-3 0) L 01/24/22 22: Ur Barbiturates Sc reen Negative ng/mL (N egative) 01/24/22 22:41 Ur Phencyclidine S crn Negative ng/mL (N egative) 01/24/22 22: Ur Amphetamines Sc reen Positive ng/mL (N egative) H 01/24/22 22:41 U Benzodiazepines Scrn Negative ng/mL (N egative) 01/24/22 22:41 Urine Cocaine Scre en Negative ng/mL (N egative) 01/24/22 22:41 U Marijuana (THC) Screen Positive ng/mL (N egative) H 01/24/22 22:41 Ethyl Alcohol < 10 mg/dL (0-10) 01/24/22 22:28 Vitals: Last Vital Signs Temp 97.9 F 01/26/22 06:00 Pulse 66 01/26/22 06:00 Resp 18 01/26/22 06:00 BP 103/64 01/26/22 06:00 Pulse Ox 100 01/26/22 06:00 Discharge Plan Discharge Patient Disposition: Home Condition: Stable Prescriptions: New bupropion HCl 300 mg tablet extended release 24 hr 300 mg PO DAILY 30 Days Qty: 30 1RF Continued Naprosyn 500 mg tablet 500 mg PO BID PRN (Reason: pain) Qty: 20 0RF risperidone 2 mg Tablet 2 mg PO BEDTIME 30 Days Qty: 30 1RF mirtazapine 15 mg Tablet 15 mg PO BEDTIME 30 Days Qty: 30 1RF Discontinued bupropion HCl 150 mg Tablet Sustained-Release 12 Hr 150 mg PO BID 30 Days Qty: 60 1RF Discharge Orders: Discharge Order (Routine); Ordered 01/26/22 Ordered By: Edwardo Yuen Referrals: Светлана Yu KAIWHAKAHAERE-C [Primary Care Provider] - Discharge Diet: Regular Discharge Activity: Resume usual activity Patient Instructions: Opioid Safety Discharge Attestations NPU Time Spent in Discharge Care*: less than 30 min Specific Discharge Activities: Specific discharge activities: educating patient, discussing with case management social worker/social workers/dc planners, documenting/other paperwork and evaluating patient/reviewing data Status at Discharge: Cognitive status at discharge: cognitively intact, Behavioral status at discharge: cooperative, Coding Level of Care Code Acute [facility] DC note Diagnoses Methamphetamine abuse F15.10 Cannabis use disorder, moderate, dependence F12.20 Anxiety F41.9 Depressive disorder F32.9 Acute psychosis F23
[2022-01-26 10:06] VITALS: BP 103/64; PULSE 66; RESP 18; TEMP 36.6; O2SAT 100
== END 2022-01-26 10:37 | disposition home or self-care (01) | DRG 897 ==
LOC: ER 23:04 → NP 23:11
PROVIDERS: Admitting Provider Psychiatry & Neurology Psychiatry; Emergency Provider Emergency Medicine; PCP Nurse Practitioner Family; Visit Provider Psychiatry & Neurology Psychiatry
DX: F15.159 Other stimulant abuse with stimulant-induced psychotic disorder, unspecified (principal); R45.851 Suicidal ideations; F17.210 Nicotine dependence, cigarettes, uncomplicated; F12.20 Cannabis dependence, uncomplicated; F41.9 Anxiety disorder, unspecified; F32.A Depression, unspecified
CPT/HCPCS: 80053; 80306; 80307; 85025; 97165; 99285

== ENCOUNTER 2022-06-12 06:06 | Emergency (ER) | payer SELFPAY ==
[2022-06-12 06:14] VITALS: BP 134/79; PULSE 80; RESP 20; TEMP 37; O2SAT 100; BMI 23.3
--- NOTE | 2022-06-12 06:19 | XRR_ITS ---
PROCEDURE INFORMATION: Exam: XR Cervical Spine Exam date and time: 06/12/2022 6:23 AM Age: 36 years old Clinical indication: Patient HX: Neck pain since May 20, no injury TECHNIQUE: Imaging protocol: Radiologic exam of the cervical spine. Views: 2 or 3 views. AP Lateral Odontoid 3 views COMPARISON: CT cervical spin wo con* [id number] 07/23/2020 10:46 AM FINDINGS: Bones/joints: There is mild kyphotic curvature of the upper cervical spine (reversal of curve). There is 1 mm anterolisthesis of C3 on C4 and C4 on C5. There are no fractures seen. Mild C5-C6 , C6-C7 and C7-T1 disc space narrowing is seen with small anterior degenerative osteophytes, suggestive of degenerative disc disease change. The facet joint, spinolaminar line and spinous process alignment is normal. The vertebral body heights appear unremarkable. The atlanto-dental alignment appears normal. Mild atlantodental degenerative changes are seen. Soft tissues: The prevertebral soft tissues appear unremarkable. The other visualized neck soft tissues appear grossly unremarkable. Notes: If there is further clinical concern, CT of the cervical spine or MRI may be performed for complete assessment. XR/XR cervical spine 3V* [id number] IMPRESSION: 1. Mild kyphotic curvature of the upper cervical spine (reversal of curve). 1 mm anterolisthesis of C3 on C4 and C4 on C5. This may be related to muscle spasm. 2. Mild disc space narrowing at the C5-C6 through C7-T1 levels, suggestive of degenerative disc disease change.
--- NOTE | 2022-06-12 06:22 | W.ED.NECK ---
HPI - Neck Pain/Injury General: Chief Complaint: Neck Pain/Injury Stated Complaint: Sore Neck Time Seen by Provider: 06/12/22 06:13 Source: patient Mode of arrival: ambulatory History of Present Illness: 36-year-old male presents emergency room complaining of right-sided neck pain radiating down into his shoulder and his upper arm. He has had this for several weeks now. He states began after he went swimming and worsened the next day progressively worsening since then he was seen week ago in [facility] there is given cyclobenzaprine to did not really help very much at this point he states it is worsening. He has not been seen by orthopedics has not had any advanced imaging. Onset (ago): minute(s) Place: home Severity: mild Duration: constant Relieving factors: none Exacerbating factors: none Context: fall Associated symptoms: Denies nausea Treatments prior to arrival: none Review of Systems Const: Denies: fever(s), chills, body aches, change in appetite, fatigue or malaise ENMT: Denies: throat pain, ear or mastoid pain, nasal discharge or nasal congestion Card: Denies: chest pain, edema, dyspnea on exertion or orthopnea Resp: Denies: dyspnea, productive cough or non-productive cough GI: Reports: diarrhea; Denies: abdominal pain, nausea, vomiting, hematemesis, coffee ground emesis, constipation, bloating, hematochezia or melena : Denies: flank pain, difficulty urinating, dysuria, urinary frequency or urinary urgency Skin/Breast: Denies: rash or pruritus PFS ED PFSH: Surgical History Hx of tonsillectomy Social History Smoking and tobacco status: current every day smoker Alcohol intake: unknown Marital status: Single Physical Exam Const: COMMON NORMALS: no acute distress GENERAL APPEARANCE: cooperative and comfortable ORIENTATION/CONSCIOUSNESS: Yes awake, Yes oriented to person, Yes oriented to place and Yes oriented to time HENMT: COMMON NORMALS: normocephalic, atraumatic, hearing grossly normal bilaterally, external ears normal, EAC's normal, TM's normal bilaterally, Normal nasal mucous membranes and turbinates present, moist oral mucous membranes and oropharynx normal HEAD & SCALP: normocephalic and atraumatic NOSE: Normal nasal mucous membranes and turbinates present EXTERNAL EAR: Yes external ears normal EXTERNAL AUDITORY CANAL: EAC's normal TYMPANIC MEMBRANE: TM's normal bilaterally Eye: COMMON NORMALS: Equal, round and reactive pupils present, EOMs intact bilaterally, conjunctivae normal and no scleral icterus CONJUNCTIVA: Yes conjunctivae normal PUPIL: Yes Equal, round and reactive pupils present Resp: COMMON NORMALS: normal respiratory effort, No retractions, No use of accessory muscles and clear to auscultation bilaterally AUSCULTATION: clear to auscultation bilaterally Cardio: COMMON NORMALS: regular rate, regular rhythm and No murmurs present (Cardio) RATE: regular rate RHYTHM: regular rhythm GI: COMMON NORMALS: Soft to palpation and No hepatosplenomegaly present AUSCULTATION: Yes normoactive bowel sounds PALPATION: Yes Soft to palpation, No Tenderness to palpation present (GI), No Guarding due to palpation present (GI) and Yes No hepatosplenomegaly present Extremity: COMMON NORMALS: normal to inspection, capillary refill normal, no clubbing, cyanosis or edema, no calf tenderness and no pedal edema OTHER: Neurovascular intact in the upper extremity 10 reflex +24 at the biceps triceps and brachioradialis. Sensation normal. Neuro: SENSORIUM/ORIENTATION: Yes oriented to person, Yes oriented to place and Yes oriented to time Skin: COMMON NORMALS: no rashes or lesions noted GENERAL SKIN EXAM: no rashes or lesions noted Course Vital Signs: Vital signs: Vital Signs Temperature 98.6 F 06/12/22 06:14 Pulse Rate 76 06/12/22 06:51 Respiratory Rate 16 06/12/22 06:51 Blood Pressure 123/84 06/12/22 06:51 Pulse Oximetry 99 06/12/22 06:51 MDM - Neck Pain/Injury Medical Decision Making X-ray shows mild kyphosis. Some anterior listhesis in the upper cervical vertebrae. No acute fractures no significant malalignment. Start on steroid taper can use diclofenac and tizanidine and follow-up with primary care or Ortho for evaluation for potential advanced imaging. Medical Records I reviewed the patient's medical records. Lab Data I reviewed the patient's lab results. Radiology Impressions Cervical Spine X-Ray 06/12/22 06:19 IMPRESSION: 1. Mild kyphotic curvature of the upper cervical spine (reversal of curve). 1 mm anterolisthesis of C3 on C4 and C4 on C5. This may be related to muscle spasm. 2. Mild disc space narrowing at the C5-C6 through C7-T1 levels, suggestive of degenerative disc disease change. Discharge Plan Discharge Patient Disposition: Home Clinical Impression: Neck pain on right side Condition: Stable Prescriptions: New prednisone 20 mg tablet 20 mg PO TID Qty: 15 0RF Rx Instructions: 1 p.o. 3 times daily x3 days, 1 p.o. twice daily x2 days, 1 p.o. daily x2 days diclofenac sodium 75 mg tablet,delayed release (DR/EC) 75 mg PO Q12H PRN (Reason: pain) Qty: 20 0RF tizanidine 4 mg capsule 4 mg PO Q6H PRN (Reason: muscle spasticity) Qty: 20 0RF Rx Instructions: do not exceed 3 doses per 24 hrs No Action Naprosyn 500 mg tablet 500 mg PO BID PRN (Reason: pain) Qty: 20 0RF bupropion HCl 300 mg tablet extended release 24 hr 300 mg PO DAILY 30 Days Qty: 30 1RF risperidone 2 mg Tablet 2 mg PO BEDTIME 30 Days Qty: 30 1RF mirtazapine 15 mg Tablet 15 mg PO BEDTIME 30 Days Qty: 30 1RF Discharge Orders: Discharge ED (Routine); Ordered 06/12/22 Ordered By: Rodger Jiang Referrals: Светлана Yu FNP-C [Primary Care Provider] - Patient Instructions: Opioid Safety Stand Alone Forms: Work/School Release Coding Level of Care Code 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
[2022-06-12 06:51] VITALS: BP 123/84; PULSE 76; RESP 16; O2SAT 99
== END 2022-06-12 06:50 | disposition home or self-care (01) ==
PROVIDERS: Emergency Provider Family Medicine; PCP Nurse Practitioner Family
DX: M54.2 Cervicalgia (principal); F17.210 Nicotine dependence, cigarettes, uncomplicated
CPT/HCPCS: 72040; 99283

== ENCOUNTER 2022-10-18 08:16 | Emergency (ER) | payer MEDICAID, SELFPAY ==
[2022-10-18 08:23] VITALS: BP 113/81; PULSE 72; RESP 15; TEMP 36.9; O2SAT 99; BMI 23.0
[2022-10-18] MEDS: dexamethasone 10 mg/mL INJ IM (09:09)
[2022-10-18] MEDS: orphenadrine 30 mg/mL Inj 2 mL 60 MG IM (09:12)
[2022-10-18] MEDS: ketorolac 60 mg/2 mL INJ IM (09:14)
--- NOTE | 2022-10-18 09:15 | ED_ITS ---
HPI - Back Pain/Injury General: Chief Complaint: Back Pain/Injury Stated Complaint: neck pain Time Seen by Provider: 10/18/22 08:29 Source: patient Mode of arrival: ambulatory History of Present Illness: 37-year-old male presents emergency room with complaint of neck and back pain that began 2 days ago. He relates it to a lot of heavy lifting he does at work this morning and woke up he had numbness and tingling in his right arm and after he got up and move around a little bit the tingling resolved fairly quickly. He has no weakness in any of the extremities no fecal incontinence or urinary retention. No recent trauma or falls. He has had problems with his back and neck in the past as well. Also complaining of sinus pressure and drainage for the last 7 to 10 days. Pertinent past history: prior back pain Onset (ago): day(s) (2) Similar Symptoms Previously: Yes Quality: tingling Radiation: other (Right arm) Relieving factors: movement Associated symptoms: Reports tingling/numbness/burning and weakness; Deny abdominal pain, arthralgias, chills, change in bowel habits, difficulty walking, dysuria, fatigue, fecal incontinence, fever(s), hematuria, myalgias, nausea, numbness, syncope, urinary frequency, urinary urgency or vomiting Review of Systems Const: Denies: fever(s), chills or fatigue ENMT: Denies: throat pain, ear or mastoid pain, nasal discharge or nasal congestion Card: Denies: syncope Resp: Denies: dyspnea, productive cough or non-productive cough GI: Denies: abdominal pain, nausea, vomiting, fecal incontinence or change in bowel habits : Denies: dysuria, urinary urgency or hematuria Skin/Breast: Denies: rash or pruritus Neuro: Denies: difficulty walking PFSH ED PFSH: Surgical History Hx of tonsillectomy Social History Smoking and tobacco status: current every day smoker Alcohol intake: unknown Marital status: Single Physical Exam Const: COMMON NORMALS: no acute distress GENERAL APPEARANCE: cooperative and comfortable ORIENTATION/CONSCIOUSNESS: Yes awake, Yes oriented to person, Yes oriented to place and Yes oriented to time HENMT: COMMON NORMALS: normocephalic, atraumatic, hearing grossly normal bilaterally, external ears normal, EAC's normal, TM's normal bilaterally, Normal nasal mucous membranes and turbinates present, moist oral mucous membranes and oropharynx normal HEAD & SCALP: normocephalic and atraumatic NOSE: Normal nasal mucous membranes and turbinates present EXTERNAL EAR: Yes external ears normal EXTERNAL AUDITORY CANAL: EAC's normal TYMPANIC MEMBRANE: TM's normal bilaterally Neck/C-Spine: COMMON NORMALS: no lymphadenopathy Resp: COMMON NORMALS: normal respiratory effort, No retractions, No use of accessory muscles and clear to auscultation bilaterally AUSCULTATION: clear to auscultation bilaterally Cardio: COMMON NORMALS: regular rate, regular rhythm and No murmurs present (Cardio) RATE: regular rate RHYTHM: regular rhythm GI: COMMON NORMALS: Soft to palpation and No hepatosplenomegaly present AUSCULTATION: Yes normoactive bowel sounds PALPATION: Yes Soft to palpation, No Tenderness to palpation present (GI), No Guarding due to palpation present (GI) and Yes No hepatosplenomegaly present Extremity: COMMON NORMALS: normal to inspection, capillary refill normal, no clubbing, cyanosis or edema, no calf tenderness and no pedal edema Neuro: SENSORIUM/ORIENTATION: Yes oriented to person, Yes oriented to place and Yes oriented to time OTHER: Deep tendon reflexes in the upper extremities +2/4 sensation is normal 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 Deep tendon reflex in the upper extremities are normal he is full range of motion extremities. I suspect some of the right arm discomfort almost sounds like it was positional when he got it up and moving after he woke up this morning and all of his symptoms went away. He is complaining of some sinus congestion pain and drainage he has had for over a week we will give him some antibiotics for that Augmentin 500 mg 3 times daily for 10 days. Steroid taper as well as tizanidine and diclofenac as needed. Medical Records I reviewed the patient's medical records. Labs I reviewed the patient's lab results. Discharge Plan Discharge Patient Disposition: Home Clinical Impression: Strain of lumbar region, Acute neck pain, Sinusitis Condition: Stable Prescriptions: New prednisone 20 mg tablet 20 mg PO TID Qty: 15 0RF Rx Instructions: 1 p.o. 3 times daily x3 days, 1 p.o. twice daily x2 days, 1 p.o. daily x2 days diclofenac sodium 75 mg tablet,delayed release (DR/EC) 75 mg PO Q12H PRN (Reason: pain) Qty: 20 0RF Augmentin 500-125 mg tablet 1 tab PO TID 10 Days Qty: 30 0RF Discontinued naproxen [Naprosyn] 500 mg tablet 500 mg PO BID PRN (Reason: pain) Qty: 20 0RF prednisone 20 mg tablet 20 mg PO TID Qty: 15 0RF Rx Instructions: 1 p.o. 3 times daily x3 days, 1 p.o. twice daily x2 days, 1 p.o. daily x2 days diclofenac sodium 75 mg tablet,delayed release (DR/EC) 75 mg PO Q12H PRN (Reason: pain) Qty: 20 0RF tizanidine 4 mg capsule 4 mg PO Q6H PRN (Reason: muscle spasticity) Qty: 20 0RF Rx Instructions: do not exceed 3 doses per 24 hrs No Action bupropion HCl 300 mg tablet extended release 24 hr 300 mg PO DAILY 30 Days Qty: 30 1RF risperidone 2 mg Tablet 2 mg PO BEDTIME 30 Days Qty: 30 1RF mirtazapine 15 mg Tablet 15 mg PO BEDTIME 30 Days Qty: 30 1RF Discharge Orders: Discharge ED (Routine); Ordered 10/18/22 Ordered By: Rodger Jiang Referrals: Светлана Yu FNP-C [Primary Care Provider] - Discharge Diet: Usual diet Discharge Activity: Increase activity as tolerated Patient Instructions: Opioid Safety, Pain Management Activity Restrictions/Additional Instructions: Complete prednisone taper starting tomorrow. Use diclofenac as needed for neck and back pain you may use ice and heat. Additionally you are given Augmentin 500 mg 1 p.o. 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
[2022-10-18 09:28] VITALS: PULSE 70; RESP 16; O2SAT 100
== END 2022-10-18 09:29 | disposition home or self-care (01) ==
PROVIDERS: Emergency Provider Family Medicine; PCP Nurse Practitioner Family
DX: M54.2 Cervicalgia (principal); S39.012A Strain of muscle, fascia and tendon of lower back, initial encounter; J32.9 Chronic sinusitis, unspecified; F17.210 Nicotine dependence, cigarettes, uncomplicated; X50.0XXA Overexertion from strenuous movement or load, initial encounter
CPT/HCPCS: 96372; 99284; J1100; J1885; J2360

== ENCOUNTER 2023-01-09 19:09 | Inpatient (IN) | payer MEDICAID, SELFPAY ==
[2023-01-09 19:26] VITALS: BMI 26.5
[2023-01-09 19:31] VITALS: BP 134/90; PULSE 122; RESP 17; TEMP 37.1; O2SAT 97
[2023-01-09 19:54] LABS: Basophils # 0.1 10^3/uL (0.0-0.1); Basophils % 0.7 %; Eosinophils # 0.2 10^3/uL (0.0-0.8); Eosinophils % 1.5 %; Hematocrit 43.5 % (42.0-52.0); Hemoglobin 14.1 g/dL (11.7-16.6); Lymphocytes % 20.4 %; Mean Corpuscular HGB Conc 32.4 g/dL (30.0-36.0); Mean Corpuscular Hemoglobin 30.5 pg (28.0-34.0); Mean Corpuscular Volume 94.2 fl (80-94); Mean Platelet Volume 8.6 fL (7.4-10.4); Monocytes # 0.4 10^3/uL (0.2-0.9); Neutrophils # 7.14 10^3/uL (1.8-7.7); Neutrophils % 73.1 %; Nucleated Red Blood Cells % 0 %; Platelet Count 306 10^3/cmm (130-400); Red Blood Count 4.62 10^6/uL (4.1-5.3); Red Cell Distribution Width 13.2 % (12.1-15.1); White Blood Count 9.8 10^3/uL (4.0-10.0)
--- NOTE | 2023-01-09 19:59 | ED.C_ITS ---
HPI - Psych General: Chief Complaint: Psychiatric Symptoms Stated Complaint: MHE Time Seen by Provider: 01/09/23 19:39 Source: patient Mode of arrival: ambulatory Limitations: no limitations History of Present Illness: 37-year-old male has a history of drug abuse he states that he been trying to stop drugs to take care of his diabetes states over the last 2 days been having extreme paranoia and hallucinations he states he has been seeing and hearing things and he is frightening for his life he is very paranoid here he is very anxious and is tearful and appears scared he states that he is fearful for his life at this time. He is acutely psychotic. Associated symptoms: Reports auditory hallucinations and visual hallucinations Review of Systems Const: Denies: fever(s), chills, body aches or change in appetite Eyes: Denies: blurry vision or eye discomfort ENMT: Denies: throat pain or dental pain Card: Denies: chest pain Resp: Denies: dyspnea GI: Denies: abdominal pain, nausea, vomiting or diarrhea : Denies: dysuria Musc: Denies: neck pain or back pain Skin/Breast: Denies: rash Neuro: Denies: headache(s) Psych: Reports: paranoia, difficulty concentrating, visual hallucinations and auditory hallucinations Robert/Lymph: Denies: easy bruising All/Imm: Denies: urticaria PFSH ED PFSH: Surgical History Hx of tonsillectomy Social History Smoking and tobacco status: current every day smoker Alcohol intake: unknown Marital status: Single Physical Exam Const: COMMON NORMALS: patient oriented x3 GENERAL APPEARANCE: in distress HENMT: COMMON NORMALS: normocephalic and atraumatic HEAD & SCALP: normocephalic and atraumatic Eye: COMMON NORMALS: Equal, round and reactive pupils present and EOMs intact bilaterally PUPIL: Yes Equal, round and reactive pupils present Neck/C-Spine: COMMON NORMALS: full ROM and supple Chest: COMMONS NORMALS: normal inspection of the chest and normal palpation of entire chest wall Resp: COMMON NORMALS: normal respiratory effort, No retractions, No use of accessory muscles and clear to auscultation bilaterally AUSCULTATION: clear to auscultation bilaterally Cardio: COMMON NORMALS: regular rate, regular rhythm and No murmurs present (Cardio) RATE: regular rate RHYTHM: regular rhythm GI: COMMON NORMALS: Normal to inspection, nondistended, normoactive bowel sounds present, Soft to palpation, non-tender and no masses PALPATION: Yes Soft to palpation Extremity: COMMON NORMALS: normal to inspection and full ROM Neuro: COMMON NORMALS: patient oriented x3, moves all extremities and no focal motor deficits Psych: COMMON NORMALS: mental status grossly normal and cooperative ATTITUDE: Yes paranoid ACTIVITY/MOTOR BEHAVIOR: Yes psychomotor agitation MOOD & AFFECT: Yes anxious and Yes tearful THOUGHT CONTENT: Yes Hallucination(s) present Skin: COMMON NORMALS: no rashes or lesions noted and no wounds GENERAL SKIN EXAM: no rashes or lesions noted Course Vital Signs: Vital signs: Vital Signs Temperature 98.8 F 01/09/23 19:31 Pulse Rate 122 H 01/09/23 19:31 Respiratory Rate 17 01/09/23 19:31 Blood Pressure 134/90 01/09/23 19:31 Pulse Oximetry 97 01/09/23 19:31 Oxygen Delivery Me thod 01/09/23 19:31 [facility] - Psych Medical Decision Making Patient presents with acute psychosis along with hallucinations did placement a 96-hour hold up spoke to the psychiatrist patient is medically cleared will admit at this time. Lab Data 01/09/23 19:49 01/09/23 19:49 Laboratory Results WBC 9.8 10^3/uL (4.0-10.0) 01/09/23 19:49 RBC 4.62 10^6/uL (4.1-5.3) 01/09/23 19:49 Hgb 14.1 g/dL (11.7-16.6) 01/09/23 19:49 Hct 43.5 % (42.0-52.0) 01/09/23 19:49 MCV 94.2 fl (80-94) H 01/09/23 19:49 MCH 30.5 pg (28.0-34.0) 01/09/23 19:49 MCHC 32.4 g/dL (30.0-36.0) 01/09/23 19:49 RDW 13.2 % (12.1-15.1) 01/09/23 19:49 Plt Count 306 10^3/cmm (130-400) 01/09/23 19:49 MPV 8.6 fL (7.4-10.4) 01/09/23 19:49 Neut % (Auto) 73.1 % 01/09/23 19:49 Lymph % (Auto) 20.4 % 01/09/23 19:49 Morrill % (Auto) 4.0 % 01/09/23 19:49 Eos % (Auto) 1.5 % 01/09/23 19:49 Baso % (Auto) 0.7 % 01/09/23 19:49 Neut # (Auto) 7.14 10^3/uL (1.8-7.7) 01/09/23 19:49 Lymph # (Auto) 2.0 10^3/uL (0.8-4.8) 01/09/23 19:49 Morrill # (Auto) 0.4 10^3/uL (0.2-0.9) 01/09/23 19:49 Eos # (Auto) 0.2 10^3/uL (0.0-0.8) 01/09/23 19:49 Baso # (Auto) 0.1 10^3/uL (0.0-0.1) 01/09/23 19:49 Nucleated RBC % (auto) 0 % 01/09/23 19:49 Nucleated RBCs # 0.0 /100WBC 01/09/23 19:49 Sodium 134 mmol/L (136-145) L 01/09/23 19:49 Potassium 4.1 mmol/L (3.5-5.1) 01/09/23 19:49 Chloride 98 mmol/L (98-107) 01/09/23 19:49 Carbon Dioxide 26 mmol/L (22-29) 01/09/23 19:49 Anion Gap 14.1 (5-19) 01/09/23 19:49 BUN 11 mg/dL (6-20) 01/09/23 19:49 Creatinine 0.9 mg/dL (0.7-1.2) 01/09/23 19:49 GFR Calculation 94.4 mL/min (90-130) 01/09/23 19:49 Glucose 95 mg/dL (65-115) 01/09/23 19:49 Calculated Osmolality 277 mOsm/kg (285-295) L 01/09/23 19:49 Calcium 9.3 mg/dL (8.5-10.5) 01/09/23 19:49 Total Bilirubin 0.2 mg/dL (0.15-1.2) 01/09/23 19:49 AST 17 U/L (0-40) 01/09/23 19:49 ALT 13 U/L (0-41) 01/09/23 19:49 Alkaline Phosphatase 74 U/L (40-130) 01/09/23 19:49 Total Protein 6.9 g/dL (6.6-8.7) 01/09/23 19:49 Albumin 4.7 g/dL (3.5-5.2) 01/09/23 19:49 Globulin 2.2 g/dL (1.3-4.6) 01/09/23 19:49 Salicylates 0.6 mg/dL (3-10) L 01/09/23 19:49 Acetaminophen < 5.0 ug/mL (10-30) L 01/09/23 19:49 Ethyl Alcohol 14 mg/dL (0-10) H 01/09/23 19:49 Discharge Plan Discharge Patient Disposition: Admitted As Inpatient Admit Provider: Mansoor Rosales Clinical Impression: Acute psychosis Condition: Stable Coding Level of Care Code ED Practice Consultant for Matty Garvin
[2023-01-09 20:13] LABS: Alanine Aminotransferase 13 U/L (0-41); Albumin Level 4.7 g/dL (3.5-5.2); Alcohol Level 14 mg/dL (0-10); Alkaline Phosphatase 74 U/L (40-130); Anion Gap 14.1 (5-19); Aspartate Amino Transferase 17 U/L (0-40); Blood Urea Nitrogen 11 mg/dL (6-20); Calcium 9.3 mg/dL (8.5-10.5); Carbon Dioxide 26 mmol/L (22-29); Chloride 98 mmol/L (98-107); Creatinine Clr Calc Pharmacy 121.7798; Globulin 2.2 g/dL (1.3-4.6); Glomerular Filtration Rate 94.4 mL/min (90-130); Glucose 95 mg/dL (65-115); Osmolality Calculated 277 mOsm/kg (285-295); Potassium 4.1 mmol/L (3.5-5.1); Salicylate 0.6 mg/dL (3-10); Sodium 134 mmol/L (136-145); Total Bilirubin 0.2 mg/dL (0.15-1.2); Total Protein 6.9 g/dL (6.6-8.7)
[2023-01-09 20:25] LABS: Acetaminophen < 5.0 ug/mL (10-30)
[2023-01-09] MEDS: LORazepam 2 mg/mL INJ 1 mL IM (20:46)
[2023-01-09] MEDS: diphenhydrAMINE 50 mg/mL SDV 1mL IM (20:47)
[2023-01-09] MEDS: ziprasidone hcl 40 mg Capsule PO (21:33)
[2023-01-09 21:34] VITALS: PULSE 70; RESP 18; O2SAT 98
[2023-01-09 22:00] VITALS: BP 97/62; PULSE 99; RESP 16; TEMP 36.8; O2SAT 98
[2023-01-09 22:06] LABS: Amphetamines Screen Urine Positive (Negative); Barbiturates Screen Urine Negative (Negative); Benzodiazepines Screen Urine Negative (Negative); Cocaine Screen Urine Negative (Negative); Opiate Screen Urine Negative (Negative); PCP Screen Urine Negative (Negative); THC Screen Urine Positive (Negative)
[2023-01-10 06:00] VITALS: BP 96/56; PULSE 66; RESP 15; TEMP 36.6; O2SAT 98
[2023-01-10 14:00] VITALS: BP 118/81; PULSE 109; RESP 18; TEMP 36.7; O2SAT 97
[2023-01-10] MEDS: hyDROXYzine 25 mg Capsule 50 MG PO ×2 (14:52→22:45)
[2023-01-10] MEDS: nicotine 4 mg lozenge MUCOUS MEM (14:54)
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
[2023-01-10] MEDS: OLANZapine 5 mg ODT PO (15:21)
--- NOTE | 2023-01-10 15:35 | PC.NURSE ---
PRN MED PT GIVEN 5MG ZYPREXA ZYDIS FOR IRRITATION, & VOICES, WILL CONTINUE TO MONITOR.
[2023-01-10 22:00] VITALS: RESP 15
[2023-01-10] MEDS: trazodone 50 mg Tablet PO (22:47)
[2023-01-11] MEDS: OLANZapine 5 mg ODT PO ×2 (05:03→14:25)
[2023-01-11 06:00] VITALS: BP 99/71; PULSE 82; RESP 15; TEMP 36.7; O2SAT 100
[2023-01-11] MEDS: nicotine 4 mg lozenge MUCOUS MEM ×5 (07:12→18:48)
[2023-01-11] MEDS: hyDROXYzine 25 mg Capsule 50 MG PO ×2 (09:52→18:48)
--- NOTE | 2023-01-11 13:14 | W.PM.NPUPNS ---
Subjective NPU Subjective: Patient presented today reporting that he is feeling better. We began discussing his addiction and the impact it is making on his functioning. He seems somewhat ambivalent and downplaying the significance of his use. Reporting essentially that he would not do it anymore, but having no real indication of why he would be able to stop. Then he discussed whether he can possibly be discharged as soon as possible because he wanted to be at work on Saturday and did not want to jeopardize his job. Investigation into that show that in fact he does not have the job yet and he was essentially trying to leverage the situation and force a decision that got him out of here earlier given being on a 96-hour hold. We identify the need for him to have continued observation and consideration of sober living. Mental Status Exam MSE Comments: This is a well-nourished, well-developed white male older than his stated age with limited grooming and eye contact. No abnormal movements except for psychomotor retardation. Mostly cooperative with exam in mild distress. Speech was decreased rate and volume. Mood described as better, affect congruent and subdued. Thought process organized. Thought content: Patient denied suicidal or homicidal ideations, he did endorse paranoia but no delusions were noted, he denied any visual hallucinations, but endorsed auditory hallucinations. Attention and concentration were limited and memory appeared mostly intact but none were formally tested. He is alert and oriented ?3. Insight and judgment are limited. Impulse control is poor. Vitals/I&O/Wt Last Vital Signs Temp 98.0 F 01/11/23 06:00 Pulse 82 01/11/23 06:00 Resp 15 01/11/23 06:00 BP 99/71 01/11/23 06:00 Pulse Ox 100 01/11/23 06:00 O2 Del Method 01/11/23 06:00 Data NPU 01/09/23 19:49 01/09/23 19:49 A&P Assessment and plan (1) Methamphetamine abuse: (2) Cannabis use disorder, moderate, dependence: (3) Anxiety: (4) Depressive disorder: (5) Acute psychosis: Plan This is a 37-year old male with a significant addiction specifically active methamphetamine use, depression and anxiety with multiple past hospitalizations here who presents reporting he is once again struggling with psychosis and methamphetamine use. Plan: 1. Restarted on 1 mg p.o. nightly and Remeron 15 mg p.o. nightly. 2. Continue every 15 minute checks for safety. 3. Encourage individual, group and milieu therapies. 4. Encourage sober living treatment after discharge at the highest level of care to which he is willing to commit. 5. We will monitor for safety for himself in the community prior to discharge. Involuntary Hold Information 96 Hour Hold: 96 Hour Involuntary Admission: Yes 96 Hour Hold Ending Date: 01/15/23 96 Hour Hold Ending Time: 19:40 Attestations NPU Medical Necessity Statement*: Inpatient hospitalization is medically necessary and the clinically appropriate intervention at this time. We will initiate medications and make changes as indicated. Likely length of stay 3-5 days Coding Level of Care Code Acute Code for [facility] Fwd Diagnoses Methamphetamine abuse F15.10 Cannabis use disorder, moderate, dependence F12.20 Anxiety F41.9 Depressive disorder F32.9 Acute psychosis F23
[2023-01-11 14:00] VITALS: BP 119/86; PULSE 103; RESP 18; TEMP 36.7; O2SAT 98
--- NOTE | 2023-01-11 14:25 | PC.NURSE ---
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 Patient agreed to take zyprexa 10mg odt.
[2023-01-11 20:03] VITALS: BP 105/77; PULSE 82; RESP 24; TEMP 36.5; O2SAT 100
[2023-01-11] MEDS: acetaminophen 325 mg Tablet 650 MG PO (20:37)
[2023-01-11] MEDS: mirtazapine 15 mg Tablet PO (20:38)
[2023-01-11] MEDS: risperiDONE 1 mg Tablet PO (20:38)
[2023-01-12 06:00] VITALS: BP 97/72; PULSE 91; RESP 17; TEMP 36.8; O2SAT 100
[2023-01-12] MEDS: LORazepam 2 mg/mL INJ 1 mL IM (06:34)
[2023-01-12] MEDS: diphenhydrAMINE 50 mg/mL SDV 1mL IM (06:35)
--- NOTE | 2023-01-12 06:35 | PC.NURSE ---
when aid was rounding Patient was C/O severe anxiety and agitation. Stating that he was going to hurt somebody if something doesn't get done NOW! PATIENT WAS BREATHING VERY RAPIDLY (RESP. 28) . He was diaphoretic and trembling. 50mg Benadryl IM and 2mg Ativan IM was given.
[2023-01-12] MEDS: nicotine 4 mg lozenge MUCOUS MEM ×3 (09:44→16:44)
--- NOTE | 2023-01-12 11:31 | W.PM.NPUPNS ---
Subjective NPU Subjective: Patient presented today endorsing that he is hoping to leave tomorrow. In another reversal he is now explaining that the confusion about the job is that he has a job but he had quit the job about a week ago. And somehow saying his old boss sent him back to work that he came on Saturday. We discussed concerns about his sobriety and that is a 96-hour hold and will consider the possibility tomorrow. Mental Status Exam MSE Comments: This is a well-nourished, well-developed white male older than his stated age with limited grooming and eye contact. No abnormal movements except for psychomotor retardation. Mostly cooperative with exam in mild distress. Speech was decreased rate and volume. Mood described as better, affect congruent and subdued. Thought process organized. Thought content: Patient denied suicidal or homicidal ideations, he did endorse paranoia but no delusions were noted, he denied any visual hallucinations, but endorsed auditory hallucinations. Attention and concentration were limited and memory appeared mostly intact but none were formally tested. He is alert and oriented ?3. Insight and judgment are limited. Impulse control is poor. Vitals/I&O/Wt Last Vital Signs Temp 98.2 F 01/12/23 06:00 Pulse 91 01/12/23 06:00 Resp 17 01/12/23 06:00 BP 97/72 01/12/23 06:00 Pulse Ox 100 01/12/23 06:00 O2 Del Method 01/12/23 06:00 Data NPU 01/09/23 19:49 01/09/23 19:49 A&P Assessment and plan (1) Methamphetamine abuse: (2) Cannabis use disorder, moderate, dependence: (3) Anxiety: (4) Depressive disorder: (5) Acute psychosis: Plan This is a 37-year old male with a significant addiction specifically active methamphetamine use, depression and anxiety with multiple past hospitalizations here who presents reporting he is once again struggling with psychosis and methamphetamine use. Plan: 1. Restarted on 1 mg p.o. nightly and Remeron 15 mg p.o. nightly. 2. Continue every 15 minute checks for safety. 3. Encourage individual, group and milieu therapies. 4. Encourage sober living treatment after discharge at the highest level of care to which he is willing to commit. 5. We will monitor for safety for himself in the community prior to discharge. Involuntary Hold Information 96 Hour Hold: 96 Hour Involuntary Admission: Yes 96 Hour Hold Ending Date: 01/15/23 96 Hour Hold Ending Time: 19:40 Attestations NPU Medical Necessity Statement*: Inpatient hospitalization is medically necessary and the clinically appropriate intervention at this time. We will initiate medications and make changes as indicated. Likely length of stay 2-4 days Coding Level of Care Code Acute Code for Chg Fwd Diagnoses Methamphetamine abuse F15.10 Cannabis use disorder, moderate, dependence F12.20 Anxiety F41.9 Depressive disorder F32.9 Acute psychosis F23
[2023-01-12 14:00] VITALS: BP 106/70; PULSE 114; RESP 20; TEMP 36.6; O2SAT 98
[2023-01-12] MEDS: OLANZapine 5 mg ODT PO (14:17)
[2023-01-12] MEDS: ibuprofen 600 mg Tablet PO (17:20)
[2023-01-12 20:05] VITALS: BP 101/64; PULSE 90; RESP 18; TEMP 36.8; O2SAT 98
[2023-01-12] MEDS: mirtazapine 15 mg Tablet PO (21:26)
[2023-01-12] MEDS: risperiDONE 1 mg Tablet PO (21:26)
[2023-01-12] MEDS: trazodone 50 mg Tablet PO (21:30)
[2023-01-13 05:11] VITALS: BP 97/75; PULSE 87; RESP 18; TEMP 36.6; O2SAT 98
[2023-01-13] MEDS: hyDROXYzine 25 mg Capsule 50 MG PO ×2 (08:17→15:24)
[2023-01-13] MEDS: nicotine 4 mg lozenge MUCOUS MEM ×4 (08:17→18:55)
[2023-01-13 14:00] VITALS: BP 105/67; PULSE 80; RESP 20; TEMP 37.1; O2SAT 95
--- NOTE | 2023-01-13 15:09 | W.PM.NPUPNS ---
Subjective NPU Subjective: Patient is in today reporting things are going better. He was focused on the possibility of being discharged. We discussed concerns about his discharge plan and concerns about the review of the story about going back to work tomorrow. We discussed adding a 96-hour hold and went to make sure that we had affective follow-up for his continued addiction and mental health concerns. Mental Status Exam MSE Comments: This is a well-nourished, well-developed white male older than his stated age with limited grooming and eye contact. No abnormal movements except for mild psychomotor retardation. Mostly cooperative with exam in no acute distress. Speech was decreased rate and volume. Mood described as better, affect congruent and subdued. Thought process organized. Thought content: Patient denied suicidal or homicidal ideations, he denied paranoia and no delusions were noted, he denied any visual hallucinations, but denied auditory hallucinations. Attention and concentration were limited and memory appeared mostly intact but none were formally tested. He is alert and oriented ?3. Insight and judgment are limited. Impulse control is poor. Vitals/I&O/Wt Last Vital Signs Temp 98.7 F 01/13/23 14:00 Pulse 80 01/13/23 14:00 Resp 20 H 01/13/23 14:00 BP 105/67 01/13/23 14:00 Pulse Ox 95 01/13/23 14:00 O2 Del Method 01/12/23 06:00 Weight last 48 hrs Weight 76.657 kg Data NPU 01/09/23 19:49 01/09/23 19:49 A&P Assessment and plan (1) Methamphetamine abuse: (2) Cannabis use disorder, moderate, dependence: (3) Anxiety: (4) Depressive disorder: (5) Acute psychosis: Plan This is a 37-year old male with a significant addiction specifically active methamphetamine use, depression and anxiety with multiple past hospitalizations here who presents reporting he is once again struggling with psychosis and methamphetamine use. Plan: 1. Restarted on 1 mg p.o. nightly and Remeron 15 mg p.o. nightly. 2. Continue every 15 minute checks for safety. 3. Encourage individual, group and milieu therapies. 4. Encourage sober living treatment after discharge at the highest level of care to which he is willing to commit. 5. We will monitor for safety for himself in the community prior to discharge. Involuntary Hold Information 96 Hour Hold: 96 Hour Involuntary Admission: Yes 96 Hour Hold Ending Date: 01/15/23 96 Hour Hold Ending Time: 19:40 Attestations NPU Medical Necessity Statement*: Inpatient hospitalization is medically necessary and the clinically appropriate intervention at this time. We will initiate medications and make changes as indicated. Likely length of stay 1-3 days Coding Level of Care Code Acute Code for Chg Fwd Diagnoses Methamphetamine abuse F15.10 Cannabis use disorder, moderate, dependence F12.20 Anxiety F41.9 Depressive disorder F32.9 Acute psychosis F23
--- NOTE | 2023-01-13 16:16 | PC.NURSE ---
PRN VISTRIL GIVEN PER PT REQUEST FOR MOD ANXIETY, PT INSTRUCTED ON DEEP BREATHING AND USE OF VISUAL IMAGERY FPR COPING MECH, PT RETERN DEMONSTRATED DEEP BREATHING AND STATED HE WAS GOING TO TAKE A SHOWER TO HELP HIM RELAX
[2023-01-13 16:37] LABS: Glucose Point of Care 126 mg/dL (70-110)
[2023-01-13] MEDS: risperiDONE 1 mg Tablet PO (20:05)
[2023-01-13] MEDS: OLANZapine 5 mg ODT PO (20:05)
[2023-01-13] MEDS: mirtazapine 15 mg Tablet PO (20:05)
[2023-01-13 20:10] VITALS: BP 103/69; PULSE 89; RESP 20; O2SAT 99
[2023-01-13] MEDS: ibuprofen 600 mg Tablet PO (21:07)
[2023-01-13] MEDS: trazodone 50 mg Tablet PO (21:17)
[2023-01-14 06:00] VITALS: BP 118/72; PULSE 84; RESP 18; O2SAT 97
[2023-01-14] MEDS: nicotine 4 mg lozenge MUCOUS MEM ×4 (06:41→13:23)
--- NOTE | 2023-01-14 12:41 | P.NPUDS_ITS ---
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 evaluating patient/reviewing data Status at Discharge: Cognitive status at discharge: cognitively intact , Behavioral status at discharge: cooperative , Coding Level of Care Code Acute [facility] [place] note Diagnoses Methamphetamine abuse F15.10 Cannabis use disorder, moderate, dependence F12.20 Anxiety F41.9 Depressive disorder F32.9 Acute psychosis F23
[2023-01-14 12:44] VITALS: BP 118/72; PULSE 84; RESP 18; O2SAT 97
[2023-01-14 12:49] VITALS: BP 118/72; PULSE 84; RESP 18; TEMP 37.1; O2SAT 97
== END 2023-01-14 14:38 | disposition home or self-care (01) | DRG 897 ==
LOC: ER 20:05 → NP 20:46
PROVIDERS: Admitting Provider Psychiatry & Neurology Psychiatry; Emergency Provider Emergency Medicine; Visit Provider Psychiatry & Neurology Psychiatry
DX: F15.159 Other stimulant abuse with stimulant-induced psychotic disorder, unspecified (principal); E11.9 Type 2 diabetes mellitus without complications; Z59.00 Homelessness unspecified; F12.20 Cannabis dependence, uncomplicated; F17.210 Nicotine dependence, cigarettes, uncomplicated; F10.90 Alcohol use, unspecified, uncomplicated; F41.9 Anxiety disorder, unspecified; F32.A Depression, unspecified
CPT/HCPCS: 36416; 80053; 80306; 80307; 82962; 85025; 96372; 97150; 97165; 99238; 99285; J1200; J1630; J2060

== ENCOUNTER 2024-09-29 13:34 | Inpatient (IN) | payer MEDICAID, SELFPAY ==
[2024-09-29 13:42] VITALS: BP 131/73; PULSE 101; RESP 18; TEMP 36.4; O2SAT 98
--- NOTE | 2024-09-29 13:43 | ECG_ITS ---
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 [email or web address]
--- NOTE | 2024-09-29 13:44 | ED.C_ITS ---
HPI - Psych 2 General: Chief Complaint: Psychiatric Symptoms Stated Complaint: SI/ HI Time Seen by Provider: 09/29/24 13:41 Source: patient and EMS Mode of arrival: EMS Limitations: no limitations History of Present Illness: 39-year-old male history of methamphetam ine abuse states he was not [facility] [place] had been clean for a month and relapsed on meth over the weekend states he is now having feelings of worthlessness and having suicidal thoughts. He states that he feels like he is going to kill himself and does not feel safe by himself currently. Associated symptoms: Reports depression and suicidal ideation Related Data Home Medications Medication Instructions Recorded Confirmed bupropion HCl 300 mg 24 hr tablet, 300 mg PO QAM 09/29/24 09/29/24 extended release (Wellbutrin XL) hydroxyzine pamoate 25 mg capsule 50 mg PO TID PRN Anxiety 09/29/24 09/29/24 levothyroxine 25 mcg tablet 25 mcg PO QAM 09/29/24 09/29/24 olanzapine 20 mg tablet 20 mg PO BEDTIME 09/29/24 09/29/24 topiramate 50 mg tablet (Topamax) 50 mg PO BEDTIME 09/29/24 09/29/24 Allergies Allergy/AdvReac Type Severity Reaction Status Date / Time haloperidol [From Haldol] Allergy ADR-Anxiety Verified 01/24/22 22:15 metoclopramide [From Reglan] Allergy ADR-Anxiety Verified 01/24/22 22:15 Review of Systems 2 Const: Denies: fever(s), chills, body aches or change in appetite ENMT: Denies: throat pain or dental pain Card: Denies: chest pain Resp: Denies: dyspnea GI: Denies: abdominal pain, nausea, vomiting or diarrhea Musc: Denies: neck pain or back pain Skin/Breast: Denies: rash Neuro: Denies: headache(s) Psych: Reports: depression and suicidal ideation PFSH ED 2 PFSH: Surgical History Hx of tonsillectomy Social History Smoking and tobacco/nicotine status: current every day tobacco/nicotine user Alcohol intake: unknown Substance/Drug Use: current Marital status: Single Physical Exam 2 Const: COMMON NORMALS: no acute distress, patient oriented x3 and healthy appearing HENMT: COMMON NORMALS: normocephalic and atraumatic HEAD & SCALP: n ormocephalic and atraumatic Neck/C-Spine: COMMON NORMALS: full ROM and supple Chest: COMMONS NORMALS: normal inspection of the chest Resp: COMMON NORMALS: normal respiratory effort Cardio: COMMON NORMALS: regular rate RATE: regular rate Extremity: COMMON NORMALS: normal to inspection and full ROM Neuro: COMMON NORMALS: patient oriented x3, moves all extremities and no focal motor deficits Psych: COMMON NORMALS: mental status grossly normal, Normal thought process present and cooperative THOUGHT PROCESS: Normal thought process present T HOUGHT CONTENT: Yes Suicidality present Skin: COMMON NORMALS: no rashes or lesions noted and no wounds GENERAL SKIN EXAM: no rashes or lesions noted Course 2 Vital Signs: Vital signs: Vital Signs Temperature 97.6 F 09/29/24 13:42 Pulse Rate 98 09/29/24 16:22 Respiratory Rate 16 09/29/24 16:22 Blood Pressure 120/78 09/29/24 16:22 Pulse Oximetry 96 09/29/24 16:22 Oxygen Delivery Me thod Room Air 09/29/24 16:22 MDM - Psych Medical Decision Making Patient presents here with suicidal ideation patient is placed on a 96-hour hold he is medically cleared I spoke to psychiatrist will admit Medical Records I reviewed the patient's medical records. Lab Data I reviewed the patient's lab results. 09/29/24 14:02 09/29/24 14:02 Laboratory Results WBC 9.64 10^3/uL (3.29-11.43) 09/29/24 14:02 RBC 4.74 10^6/uL (3.85-5.65) 09/29/24 14:02 Hgb 14.20 g/dL (11.27-16.99) 09/29/24 14:02 Hct 43.1 % (37-53) 09/29/24 14:02 MCV 90.9 fl (82-101) 09/29/24 14:02 MCH 30.0 pg (27-33) 09/29/24 14:02 MCHC 32.9 g/dL (30-55) 09/29/24 14:02 RDW 14.1 % (12.1-15.1) 09/29/24 14:02 Plt Count 326 10^3/cmm (157-399) 09/29/24 14:02 MPV 8.7 fL (7.4-10.4) 09/29/24 14:02 Neut % (Auto) 74.0 % 09/29/24 14:02 Lymph % (Auto) 18.0 % 09/29/24 14:02 Worth % (Auto) 6.7 % 09/29/24 14:02 Eos % (Auto) 0.4 % 09/29/24 14:02 Baso % (Auto) 0.6 % 09/29/24 14:02 Neut # (Auto) 7.12 10^3/uL (1.8-7.7) 09/29/24 14:02 Lymph # (Auto) 1.7 10^3/uL (0.8-4.8) 09/29/24 14:02 Worth # (Auto) 0.7 10^3/uL (0.2-0.9) 09/29/24 14:02 Eos # (Auto) 0.0 10^3/uL (0.0-0.8) 09/29/24 14:02 Baso # (Auto) 0.1 10^3/uL (0.0-0.1) 09/29/24 14:02 Nucleated RBC % (auto) 0 % 09/29/24 14:02 Nucleated RBCs # 0.0 /100WBC 09/29/24 14:02 Sodium 135 mmol/L (136-145) L 09/29/24 14:02 Potassium 3.9 mmol/L (3.5-5.1) 09/29/24 14:02 Chloride 102 mmol/L (98-107) 09/29/24 14:02 Carbon Dioxide 20 mmol/L (22-29) L 09/29/24 14:02 Anion Gap 16.9 (5-19) 09/29/24 14:02 BUN 17 mg/dL (6-20) 09/29/24 14:02 Creatinine 0.8 mg/dL (0.7-1.2) 09/29/24 14:02 GFR Calculation 107.1 mL/min (90-130) 09/29/24 14:02 Glucose 86 mg/dL (65-115) 09/29/24 14:02 Calculated Osmolality 281 mOsm/kg (285-295) L 09/29/24 14:02 Calcium 8.9 mg/dL (8.5-10.5) 09/29/24 14:02 Total Bilirubin 0.5 mg/dL (0.15-1.2) 09/29/24 14:02 AST 35 U/L (0-40) 09/29/24 14:02 ALT 37 U/L (0-41) 09/29/24 14:02 Alkaline Phosphatase 89 U/L (40-130) 09/29/24 14:02 Total Protein 7.2 g/dL (6.6-8.7) 09/29/24 14:02 Albumin 4.4 g/dL (3.5-5.2) 09/29/24 14:02 Globulin 2.8 g/dL (1.3-4.6) 09/29/24 14:02 TSH 5.36 uIU/mL (0.27-4.20) H 09/29/24 14:02 Salicylates < 0.3 mg/dL (3-10) L 09/29/24 14:02 Urine Opiates Screen Negative ng/mL (Negative) 09/29/24 14:45 Acetaminophen < 5.0 ug/mL (10-30) L 09/29/24 14:02 Ur Barbiturates Screen Negative ng/mL (Negative) 09/29/24 14:45 Ur Phencyclidine Scrn Negative ng/mL (Negative) 09/29/24 14:45 Ur Amphetamines Screen Positive ng/mL (Negative) H 09/29/24 14:45 U Benzodiazepines Scrn Negative ng/mL (Negative) 09/29/24 14:45 Urine Cocaine Screen Negative ng/mL (Negative) 09/29/24 14:45 U Marijuana (THC) Screen Positive ng/mL (Negative) H 09/29/24 14:45 Ethyl Alcohol 36 mg/dL (0-10) H 09/29/24 14:02 Coronavirus (PCR) Negative (Negative) 09/29/24 14:45 Influenza A (PCR) Negative (Negative) 09/29/24 14:45 Influenza Type B (PCR) Negative (Negative) 09/29/24 14:45 RSV (PCR) Negative (Negative) 09/29/24 14:45 All radiology interpretation(s) finalized by discharge EKG Data EKG 1: I personally reviewed and interpreted this EKG as follows: EKG interpretation date: 09/29/24 EKG interpretation time: 15:07 Interpretation: nsr hr [address] elevation qrs 94 qtc 415 Discharge Plan Discharge Patient Disposition: Admitted As Inpatient Admit Provider: Mansoor Rosales Clinical Impression: Suicidal ideation Condition: Stable Coding Level of Care Code ED Senior Mobile Application Developer for Matty Garvin
--- NOTE | 2024-09-29 14:23 | PC.PHAR ---
Addendum entered by Rox Barber 09/29/24 15:02: Turning IT[facility] verified all pts' medications-all were totally different than what pt had stated. Med rec completed via [facility] records. Original Note: Pt states he takes a thyroid medication but does not know the strength. I have a call out to [facility] to find out. 09/29/24 2:20pm
[2024-09-29 14:38] LABS: Basophils # 0.1 10^3/uL (0.0-0.1); Basophils % 0.6 %; Eosinophils % 0.4 %; Hematocrit 43.1 % (37-53); Lymphocytes # 1.7 10^3/uL (0.8-4.8); Mean Corpuscular HGB Conc 32.9 g/dL (30-55); Mean Corpuscular Volume 90.9 fl (82-101); Mean Platelet Volume 8.7 fL (7.4-10.4); Monocytes # 0.7 10^3/uL (0.2-0.9); Monocytes % 6.7 %; Neutrophils # 7.12 10^3/uL (1.8-7.7); Nucleated Red Blood Cells % 0 %; Platelet Count 326 10^3/cmm (157-399); Red Blood Count 4.74 10^6/uL (3.85-5.65); Red Cell Distribution Width 14.1 % (12.1-15.1); White Blood Count 9.64 10^3/uL (3.29-11.43)
[2024-09-29 15:03] LABS: Amphetamines Screen Urine Positive (Negative); Barbiturates Screen Urine Negative (Negative); Benzodiazepines Screen Urine Negative (Negative); Cocaine Screen Urine Negative (Negative); Opiate Screen Urine Negative (Negative); PCP Screen Urine Negative (Negative); THC Screen Urine Positive (Negative)
[2024-09-29 15:08] LABS: Alanine Aminotransferase 37 U/L (0-41); Albumin Level 4.4 g/dL (3.5-5.2); Alcohol Level 36 mg/dL (0-10); Alkaline Phosphatase 89 U/L (40-130); Anion Gap 16.9 (5-19); Aspartate Amino Transferase 35 U/L (0-40); Blood Urea Nitrogen 17 mg/dL (6-20); Calcium 8.9 mg/dL (8.5-10.5); Carbon Dioxide 20 mmol/L (22-29); Chloride 102 mmol/L (98-107); Globulin 2.8 g/dL (1.3-4.6); Glomerular Filtration Rate 107.1 mL/min (90-130); Glucose 86 mg/dL (65-115); Osmolality Calculated 281 mOsm/kg (285-295); Potassium 3.9 mmol/L (3.5-5.1); Sodium 135 mmol/L (136-145); Thyroid Stimulating Hormone 5.36 uIU/mL (0.27-4.20); Total Bilirubin 0.5 mg/dL (0.15-1.2); Total Protein 7.2 g/dL (6.6-8.7)
[2024-09-29 15:09] LABS: Acetaminophen < 5.0 ug/mL (10-30); Salicylate < 0.3 mg/dL (3-10)
[2024-09-29 15:30] LABS: Covid PCR NEGATIVE (Negative); Influenza A NEGATIVE (Negative); Influenza B NEGATIVE (Negative); Respiratory Syncytial Virus Ce NEGATIVE (Negative)
[2024-09-29 16:22] VITALS: BP 120/78; PULSE 98; RESP 16; O2SAT 96
[2024-09-29 16:40] VITALS: BP 120/78; PULSE 98; O2SAT 96
[2024-09-29 16:41] VITALS: BP 136/90; PULSE 97; RESP 17; TEMP 36.7; O2SAT 98
--- NOTE | 2024-09-29 18:03 | PC.NURSE ---
PT ARRIVED TO THE ED WITH COMPLAINTS OF SUICIDAL IDEATION. PT WAS REPORTED TO HAVE PREVIOUSLY BEEN AT [facility] FOR A MONTH THEN RELAPSED. UPON ADMIT TO THE NPU PT APPEARS DEPRESSED. PT ENDORSES RELAPSE AND STATES THAT HE WENT BACK TO [place] TO GET ASSISTANCE BEING PLACED INTO A SOBER LIVING. PT STATES OVER THE LAST WEEK HE HAS BEEN FEELING WORSE AND WORTHLESS. PT ENDORSES WANTING TO GET AND STAY SOBER HOWEVER GET DEPRESSED AND SLIPPED BACK INTO IT TOO EASILY . PT WAS COOPERATIVE WITH ASSESSMENT AND MEDICATIONS. PT CURRENTLY DENIES SI/HI/AH/VH. PT CURRENT NEEDS ARE MET AT THIS TIME.
--- NOTE | 2024-09-29 18:09 | PC.NURSE ---
96 hr rights reviewed with patient @[id number] with assistance of [facility] earth science technical officer Nitin. All education reviewed. No verbalized questions or concerns at this time. Patient copy left @bedside with patient.
[2024-09-29 20:00] VITALS: BP 110/73; PULSE 86; RESP 16; TEMP 36.7; O2SAT 96
[2024-09-30] VITALS (7 sets, daily range): BP systolic 102–132; BP diastolic 61–83; PULSE 61–92; RESP 16–18; TEMP 36.6–37.1; O2SAT 97–100
[2024-09-30] MEDS: multivitamin therapeutic Tablet 1 TAB PO (08:45)
[2024-09-30] MEDS: thiamine 100 mg Tablet PO (08:45)
[2024-09-30] MEDS: folic acid 1 mg Tablet PO (08:46)
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
[2024-09-30] MEDS: nicotine 4 mg lozenge MUCOUS MEM (17:52)
[2024-09-30] MEDS: topiramate 25 mg Tablet 50 MG PO (19:59)
[2024-09-30] MEDS: trazodone 50 mg Tablet PO (20:00)
[2024-09-30] MEDS: OLANZapine 10 mg TABLET 20 MG PO (20:00)
[2024-10-01 04:00] VITALS: BP 99/64; PULSE 61; RESP 16; TEMP 36.6; O2SAT 98
[2024-10-01] MEDS: buPROPion XL (24 HR) 300 mg Tablet PO (06:25)
[2024-10-01] MEDS: levothyroxine 25 mcg Tablet PO (06:25)
[2024-10-01 07:26] VITALS: BP 105/77; PULSE 99; RESP 20; TEMP 36.6; O2SAT 98
[2024-10-01] MEDS: multivitamin therapeutic Tablet 1 TAB PO (08:41)
[2024-10-01] MEDS: thiamine 100 mg Tablet PO (08:41)
[2024-10-01] MEDS: folic acid 1 mg Tablet PO (08:41)
[2024-10-01 12:00] VITALS: BP 112/79; PULSE 78; RESP 18; TEMP 36.3; O2SAT 98
[2024-10-01 16:00] VITALS: BP 106/70; PULSE 78; RESP 18; TEMP 37; O2SAT 98
--- NOTE | 2024-10-01 18:15 | W.PM.NPUPNS ---
Subjective NPU Subjective: Patient presented today reporting that he is doing okay. He seems to downplay the significance of his situation. He does seem to understand that eventually returning to [facility] is his best option to getting things back on track. He has a parole/correctional officer chief who is supportive of the current plan and we agreed we would just make sure his medications were optimized and that we had him ready for return to [facility] at the beginning of the week. Mental Status Exam MSE Comments: This is a well-nourished, well-developed white male older than his stated age with limited grooming and eye contact. No abnormal movements except for mild psychomotor retardation. Mostly cooperative with exam in no acute distress. Speech was decreased rate and volume. Mood described as much better, affect congruent and less subdued. Thought process organized. Thought content: Patient denied suicidal or homicidal ideations, he denied paranoia and no delusions were noted, he denied any visual hallucinations, but denied auditory hallucinations. Attention and concentration were limited and memory appeared mostly intact but none were formally tested. He is alert and oriented ?3. Insight and judgment are limited, but improved. Impulse control is poor, but improving. Vitals/I&O/Wt Last Vital Signs Temp 98.6 F 10/01/24 16:00 Pulse 78 10/01/24 16:00 Resp 18 10/01/24 16:00 BP 106/70 10/01/24 16:00 Pulse Ox 98 10/01/24 16:00 O2 Del Method Room Air 10/01/24 16:00 Data NPU 09/29/24 14:02 09/29/24 14:02 A&P Assessment and plan (1) Methamphetamine abuse: (2) Cannabis use disorder, moderate, dependence: (3) Anxiety: (4) Depressive disorder: (5) Acute psychosis: Plan This is a 39-year old male with a long history of addiction and mental health challenges with frequent past hospitalizations who presents with active methamphetamine, cannabis and alcohol use, depression and anxiety who presents after the longest period of not being hospitalized in a a while. Plan: 1. Restart medications. 2. Continue every 15 minute checks for safety. 3. Encourage individual, group and milieu therapies. 4. Encourage sober living treatment after discharge at the highest level of care to which he is willing to commit. 5. Get collateral information. 6. Evaluate against the backdrop of the 96-hour hold. Involuntary Hold Information 96 Hour Hold: 96 Hour Involuntary Admission: Yes 96 Hour Hold Ending Date: 10/05/24 96 Hour Hold Ending Time: 13:51 Other Hold: Hold End Date: 10/05/24 Attestations NPU Medical Necessity Statement*: Inpatient hospitalization is medically necessary and the clinically appropriate intervention at this time. We will initiate medications and make changes as indicated. Likely length of stay 4-6 days Coding Level of Care Code Acute Code for [facility] Fwd Diagnoses Methamphetamine abuse F15.10 Cannabis use disorder, moderate, dependence F12.20 Anxiety F41.9 Depressive disorder F32.9 Acute psychosis F23
[2024-10-01 19:39] VITALS: BP 110/70; PULSE 88; RESP 16; TEMP 36.8; O2SAT 98
[2024-10-01 20:00] VITALS: BP 110/70; PULSE 88; RESP 16; TEMP 36.8; O2SAT 98
[2024-10-01] MEDS: topiramate 25 mg Tablet 50 MG PO (20:09)
[2024-10-01] MEDS: trazodone 50 mg Tablet PO (20:10)
[2024-10-01] MEDS: OLANZapine 10 mg TABLET 20 MG PO (20:10)
[2024-10-02] VITALS (7 sets, daily range): BP systolic 95–151; BP diastolic 61–92; PULSE 63–97; RESP 16–18; TEMP 36.6–36.9; O2SAT 96–99
[2024-10-02] MEDS: levothyroxine 25 mcg Tablet PO (05:59)
[2024-10-02] MEDS: buPROPion XL (24 HR) 300 mg Tablet PO (05:59)
[2024-10-02] MEDS: multivitamin therapeutic Tablet 1 TAB PO (08:33)
[2024-10-02] MEDS: folic acid 1 mg Tablet PO (08:33)
[2024-10-02] MEDS: hyDROXYzine 25 mg Capsule 50 MG PO (08:34)
[2024-10-02] MEDS: thiamine 100 mg Tablet PO (08:34)
--- NOTE | 2024-10-02 16:30 | P.NPUPN_ITS ---
Subjective NPU 2 Subjective: Patient presented today reporting that he is feeling better in general. He identified that he is open to medication changes but reports that overall he was just struggling with some of the psychosocial stressors that have been plaguing him. He knows that he will be returning to [facility] likely at the beginning of the week and denied any side effects to the medication. Mental Status Exam 2 MSE Comments: This is a well-nourished, well-developed white male older than his stated age with limited grooming and eye contact. No abnormal movements except for mild psychomotor retardation. Mostly cooperative with exam in no acute distress. Speech was decreased rate and volume. Mood described as a little better, affect congruent and less subdued. Thought process organized. Thought content: Patient denied suicidal or homicidal ideations, he denied paranoia and no delusions were noted, he denied any visual hallucinations, but denied auditory hallucinations. Attention and concentration were limited and memory appeared mostly intact but none were formally tested. He is alert and oriented ?3. Insight and judgment are limited, but improved. Impulse control is poor, but improving. Vitals/I&O/Wt Last Vital Signs Temp 98 F 10/02/24 14:00 Pulse 97 10/02/24 14:00 Resp 16 10/02/24 14:00 BP 102/72 10/02/24 14:00 Pulse Ox 97 10/02/24 14:00 O2 Del Method Room Air 10/02/24 14:00 Data NPU 09/29/24 14:02 09/29/24 14:02 A&P Assessment and plan (1) Methamphetamine abuse: (2) Cannabis use disorder, moderate, dependence: (3) Anxiety: (4) Depressive disorder: (5) Acute psychosis: Plan This is a 39-year old male with a long history of addiction and mental health challenges with frequent past hospitalizations who presents with active methamphetamine, cannabis and alcohol use, depression and anxiety who presents after the longest period of not being hospitalized in a a while. Plan: 1. Restarted medications. 2. Continue every 15 minute checks for safety. 3. Encourage individual, group and milieu therapies. 4. Encourage sober living treatment after discharge at the highest level of care to which he is willing to commit. He will return to [facility] at the beginning of the week. 5. Get collateral information. 6. Evaluate against the backdrop of the 96-hour hold. Involuntary Hold Information 2 96 Hour Hold: 96 Hour Involuntary Admission: Yes 96 Hour Hold Ending Date: 10/05/24 96 Hour Hold Ending Time: 13:51 Other Hold: Hold End Date: 10/05/24 Attestations NPU 2 Medical Necessity Statement*: Inpatient hospitalization is medically necessary and the clinically appropriate intervention at this time. We will initiate medications and make changes as indicated. Likely length of stay 3-5 days Coding Level of Care Code Acute Code for [facility] Fwd Diagnoses Methamphetamine abuse F15.10 Cannabis use disorder, moderate, dependence F12.20 Anxiety F41.9 Depressive disorder F32.9 Acute psychosis F23
[2024-10-02] MEDS: nicotine 4 mg lozenge MUCOUS MEM (16:54)
[2024-10-02] MEDS: OLANZapine 10 mg TABLET 20 MG PO (20:29)
[2024-10-02] MEDS: topiramate 25 mg Tablet 50 MG PO (20:30)
[2024-10-02] MEDS: trazodone 50 mg Tablet PO (20:30)
[2024-10-03] MEDS: levothyroxine 25 mcg Tablet PO (05:38)
[2024-10-03] MEDS: buPROPion XL (24 HR) 300 mg Tablet PO (05:38)
[2024-10-03 06:00] VITALS: BP 106/69; PULSE 64; RESP 18; TEMP 36.7; O2SAT 98
[2024-10-03] MEDS: thiamine 100 mg Tablet PO (08:21)
[2024-10-03] MEDS: multivitamin therapeutic Tablet 1 TAB PO (08:21)
[2024-10-03] MEDS: folic acid 1 mg Tablet PO (08:21)
[2024-10-03] MEDS: nicotine 4 mg lozenge MUCOUS MEM ×2 (08:21→12:08)
[2024-10-03] MEDS: ibuprofen 600 mg Tablet PO (08:30)
--- NOTE | 2024-10-03 11:05 | P.NPUPN_ITS ---
Subjective NPU 2 Subjective: Patient presented today reporting that he is doing pretty well. He reports that he is adjusting to continued consistency with his medication. He identified that he feels good on the current medication and is optimistic that he will be ready to return to [facility] possibly Saturday. We discussed the fact that her vision is also for him returning at the beginning of the week if he continues to do well. He denied any side effects to the medication. Mental Status Exam 2 MSE Comments: This is a well-nourished, well-developed white male older than his stated age with limited grooming and eye contact. No abnormal movements except for mild psychomotor retardation. Cooperative with exam in no acute distress. Speech was decreased rate and volume. Mood described as a little better, affect congruent and less subdued. Thought process organized. Thought content: Patient denied suicidal or homicidal ideations, he denied paranoia and no delusions were noted, he denied any visual hallucinations, but denied auditory hallucinations. Attention and concentration were limited and memory appeared mostly intact but none were formally tested. He is alert and oriented ?3. Insight and judgment are limited, but improved. Impulse control is poor, but improving. Vitals/I&O/Wt Last Vital Signs Temp 98.1 F 10/03/24 21:48 Pulse 66 10/03/24 21:48 Resp 17 10/03/24 21:48 BP 113/74 10/03/24 21:48 Pulse Ox 97 10/03/24 21:48 O2 Del Method Room Air 10/03/24 14:00 Data NPU 09/29/24 14:02 09/29/24 14:02 A&P Assessment and plan (1) Methamphetamine abuse: (2) Cannabis use disorder, moderate, dependence: (3) Anxiety: (4) Depressive disorder: (5) Acute psychosis: Plan This is a 39-year old male with a long history of addiction and mental health challenges with frequent past hospitalizations who presents with active methamphetamine, cannabis and alcohol use, depression and anxiety who presents after the longest period of not being hospitalized in a a while. Plan: 1. Restarted medications. 2. Continue every 15 minute checks for safety. 3. Encourage individual, group and milieu therapies. 4. Encourage sober living treatment after discharge at the highest level of care to which he is willing to commit. He will return to [facility] at the beginning of the week. 5. Get collateral information. 6. Evaluate against the backdrop of the 96-hour hold. Involuntary Hold Information 2 96 Hour Hold: 96 Hour Involuntary Admission: Yes 96 Hour Hold Ending Date: 10/05/24 96 Hour Hold Ending Time: 13:51 Other Hold: Hold End Date: 10/05/24 Attestations NPU 2 Medical Necessity Statement*: Inpatient hospitalization is medically necessary and the clinically appropriate intervention at this time. We will initiate medications and make changes as indicated. Likely length of stay 2-4 days Coding Level of Care Code Acute Code for [facility] Fwd Diagnoses Methamphetamine abuse F15.10 Cannabis use disorder, moderate, dependence F12.20 Anxiety F41.9 Depressive disorder F32.9 Acute psychosis F23
[2024-10-03] MEDS: hyDROXYzine 25 mg Capsule 50 MG PO (13:02)
[2024-10-03 14:00] VITALS: BP 109/72; PULSE 81; RESP 16; TEMP 36.6; O2SAT 98
--- NOTE | 2024-10-03 14:33 | PC.NURSE ---
Patient requested this RN let Dr. Rosales know he felt the zyprexa was not helping him and that the trazodone worked better. This RN relayed the information to Dr. Rosales who said it was okay to d/c the zyprexa and start the patient on scheduled trazodone 50mg po bedtime.
[2024-10-03] MEDS: OLANZapine 5 mg ODT PO (18:44)
[2024-10-03] MEDS: trazodone 50 mg Tablet PO (20:38)
[2024-10-03] MEDS: topiramate 25 mg Tablet 50 MG PO (20:38)
[2024-10-03 21:48] VITALS: BP 113/74; PULSE 66; RESP 17; TEMP 36.7; O2SAT 97
[2024-10-04 06:00] VITALS: BP 109/68; PULSE 72; RESP 18; TEMP 36.7; O2SAT 98
[2024-10-04] MEDS: buPROPion XL (24 HR) 300 mg Tablet PO (06:52)
[2024-10-04] MEDS: levothyroxine 25 mcg Tablet PO (06:52)
[2024-10-04] MEDS: nicotine 4 mg lozenge MUCOUS MEM (06:54)
[2024-10-04] MEDS: folic acid 1 mg Tablet PO ×2 (07:56→07:57)
[2024-10-04] MEDS: thiamine 100 mg Tablet PO (07:57)
[2024-10-04] MEDS: multivitamin therapeutic Tablet 1 TAB PO (07:57)
[2024-10-04] MEDS: hyDROXYzine 25 mg Capsule 50 MG PO (07:57)
[2024-10-04] MEDS: OLANZapine 5 mg ODT PO (13:52)
[2024-10-04] MEDS: nicotine 21 mg Patch 1 PATCH TRANSDERMA (13:52)
[2024-10-04 14:00] VITALS: BP 104/67; PULSE 59; RESP 16; TEMP 36.7; O2SAT 99
--- NOTE | 2024-10-04 15:15 | W.PM.NPUPNS ---
Subjective NPU Subjective: 39-year-old male with a extended history of methamphetamine abuse for more than 20 years admitted with worsening depression and anxiety. The patient had endorsed having problems with paranoia and stated that he relapsed on alcohol and methamphetamine while at home in [place]. He had reported having problems with paranoia and agitation in the past while using methamphetamine. He had reported desire to abstain from methamphetamine use and reported the longest period of abstinence was only 6 months. Patient reported desire to consider digital therapeutic application for addiction treatment after he completed his time at [facility]. Mental Status Exam MSE Comments: This is a well-nourished, well-developed white male older than his stated age with limited grooming and eye contact. No abnormal movements except for mild psychomotor retardation. Cooperative with exam in no acute distress. Speech was decreased in rate and volume. Mood described allright. His affect was slightly restricted. Thought process was linear and organized. Thought content: Patient denied suicidal or homicidal ideations, he denied paranoia and no delusions were noted, he denied any visual hallucinations, but denied auditory hallucinations. Attention and concentration were limited and memory appeared mostly intact but none were formally tested. He is alert and oriented ?3. Insight and judgment are limited, but improved. Impulse control is limited. Vitals/I&O/Wt Last Vital Signs Temp 98.0 F 10/04/24 14:00 Pulse 59 L 10/04/24 14:00 Resp 16 10/04/24 14:00 BP 104/67 10/04/24 14:00 Pulse Ox 99 10/04/24 14:00 O2 Del Method Room Air 10/04/24 14:00 Weight last 48 hrs Weight 105.596 kg Data NPU 09/29/24 14:02 09/29/24 14:02 A&P Assessment and plan (1) Methamphetamine abuse: (2) Cannabis use disorder, moderate, dependence: (3) Acute psychosis: (4) Anxiety: (5) Depressive disorder: Plan This is a 39-year old male with a long history of addiction and mental health challenges with frequent past hospitalizations who presents with active methamphetamine, cannabis and alcohol use, depression and anxiety who presents after the longest period of not being hospitalized in a a while. Plan: 1. Restarted medications. Add Invega 3mg at night to target psychosis. 2. Continue every 15 minute checks for safety. 3. Encourage individual, group and milieu therapies. 4. Encourage sober living treatment after discharge at the highest level of care to which he is willing to commit. He will return to [facility] at the beginning of the week. 5. Get collateral information. 6. Evaluate against the backdrop of the 96-hour hold. Involuntary Hold Information 96 Hour Hold: 96 Hour Involuntary Admission: Yes 96 Hour Hold Ending Date: 10/05/24 96 Hour Hold Ending Time: 13:51 Other Hold: Hold End Date: 10/05/24 Attestations NPU Medical Necessity Statement*: Inpatient hospitalization is medically necessary and the clinically appropriate intervention at this time. We will initiate medications and make changes as indicated. Likely length of stay 2-4 days Coding Level of Care Code Acute Code for [facility] Fwd Diagnoses Methamphetamine abuse F15.10 Cannabis use disorder, moderate, dependence F12.20 Acute psychosis F23 Anxiety F41.9 Depressive disorder F32.9
[2024-10-04] MEDS: paliperidone ER 3 mg Tablet PO (20:03)
[2024-10-04] MEDS: topiramate 25 mg Tablet 50 MG PO (20:03)
[2024-10-04] MEDS: trazodone 50 mg Tablet PO (20:03)
[2024-10-04 20:16] VITALS: BP 103/68; PULSE 74; RESP 17; TEMP 37; O2SAT 96
[2024-10-05] MEDS: levothyroxine 25 mcg Tablet PO (05:56)
[2024-10-05] MEDS: buPROPion XL (24 HR) 300 mg Tablet PO (05:56)
[2024-10-05 06:00] VITALS: BP 105/65; PULSE 72; RESP 18; TEMP 36.4; O2SAT 97
[2024-10-05] MEDS: nicotine 4 mg lozenge MUCOUS MEM ×2 (07:42→12:46)
[2024-10-05] MEDS: thiamine 100 mg Tablet PO (08:56)
[2024-10-05] MEDS: multivitamin therapeutic Tablet 1 TAB PO (08:56)
[2024-10-05] MEDS: hyDROXYzine 25 mg Capsule 50 MG PO (08:56)
[2024-10-05] MEDS: OLANZapine 5 mg ODT PO (13:24)
--- NOTE | 2024-10-05 13:39 | P.NPUDS_ITS ---
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 U/L (0-40) 09/29/24 14:02 ALT 37 U/L (0-41) 09/29/24 14:02 Alkaline Phosphata se 89 U/L (40-130) 09/29/24 14:02 Total Protein 7.2 g/dL (6.6-8.7 ) 09/29/24 14:02 Albumin 4.4 g/dL (3.5-5.2 ) 09/29/24 14:02 Globulin 2.8 g/dL (1.3-4.6 ) 09/29/24 14:02 TSH 5.36 uIU/mL (0.27 -4.20) H 09/29/24 14:02 Salicylates < 0.3 mg/dL (3-10 ) L 09/29/24 14:02 Urine Opiates Scre en Negative ng/mL (N egative) 09/29/24 14:45 Acetaminophen < 5.0 ug/mL (10-3 0) L 09/29/24 14:02 Ur Barbiturates Sc reen Negative ng/mL (N egative) 09/29/24 14:45 Ur Phencyclidine S crn Negative ng/mL (N egative) 09/29/24 14:45 Ur Amphetamines Sc reen Positive ng/mL (N egative) H 09/29/24 14:45 U Benzodiazepines Scrn Negative ng/mL (N egative) 09/29/24 14:45 Urine Cocaine Scre en Negative ng/mL (N egative) 09/29/24 14:45 U Marijuana (THC) Screen Positive ng/mL (N egative) H 09/29/24 14:45 Ethyl Alcohol 36 mg/dL (0-10) H 09/29/24 14:02 Coronavirus (PCR) Negative (Negati ve) 09/29/24 14:45 Influenza A (PCR) Negative (Negati ve) 09/29/24 14:45 Influenza Type B ( PCR) Negative (Negati ve) 09/29/24 14:45 RSV (PCR) Negative (Negati ve) 09/29/24 14:45 Vitals: Last Vital Signs Temp 97.6 F 10/05/24 06:00 Pulse 72 10/05/24 06:00 Resp 18 10/05/24 06:00 BP 105/65 10/05/24 06:00 Pulse Ox 97 10/05/24 06:00 O2 Del Method Room Air 10/04/24 14:00 Discharge Plan Discharge Patient Disposition: Home Condition: Stable Prescriptions: New trazodone 50 mg Tablet 50 mg PO BEDTIME 30 Days Qty: 30 1RF thiamine mononitrate (vit B1) [Vitamin B-1 (mononitrate)] 100 mg Tablet 100 mg PO DAILY 30 Days Qty: 30 1RF paliperidone 3 mg Tablet Extended Release 24 Hr 3 mg PO 2100 30 Days Qty: 30 1RF Continued levothyroxine 25 mcg Tablet 25 mcg PO QAM 30 Days Qty: 30 1RF bupropion HCl [Wellbutrin XL] 300 mg Tablet Extended Release 24 Hr 300 mg PO QAM 30 Days Qty: 30 1RF topiramate [Topamax] 50 mg Tablet 50 mg PO BEDTIME 30 Days Qty: 30 1RF Changed hydroxyzine pamoate 25 mg capsule 50 mg PO TID PRN (Reason: Anxiety) 30 Days Qty: 90 1RF Discontinued olanzapine 20 mg Tablet 20 mg PO BEDTIME Discharge Orders: Discharge Order (Routine); Ordered 10/05/24 Ordered By: Osvaldo Tobar Referrals: [facility] Behavioral Health [facility] [Other] - 10/05/24 3:[address] [facility] Care [Outside] - 10/08/24 12:30 pm (Initial appointment with Mag Koenig) Discharge Diet: Usual diet Discharge Activity: Resume usual activity Patient Instructions: Trazodone (By mouth) (Desyrel, Desyrel Dividose, Oleptro, Trazamine), Thiamine (By mouth), Paliperidone (By mouth) (Invega), Depression (DC), Generalized Anxiety Disorder (GEN), Polysubstance Use Disorder (DC), Psychotic Disorder (DC), Opioid Safety Discharge Attestations NPU Time Spent in Discharge Care*: less than 30 min Specific Discharge Activities: Specific discharge activities: educating patient and documenting/other paperwork Status at Discharge: Cognitive status at discharge: cognitively intact , Behavioral status at discharge: cooperative , Coding Level of Care Code Acute Code for Chg Fwd Diagnoses Methamphetamine abuse F15.10 Cannabis use disorder, moderate, dependence F12.20 Acute psychosis F23 Anxiety F41.9 Depressive disorder F32.9
[2024-10-05 14:00] VITALS: BP 113/73; PULSE 84; RESP 16; RESP 17; TEMP 36.8; O2SAT 96
== END 2024-10-05 15:02 | disposition home or self-care (01) | DRG 885 ==
LOC: ER 15:43 → NP 16:09
PROVIDERS: Admitting Provider Psychiatry & Neurology Psychiatry; Emergency Provider Emergency Medicine; Visit Provider Psychiatry & Neurology Psychiatry
DX: F23 Brief psychotic disorder (principal); R45.851 Suicidal ideations; F15.10 Other stimulant abuse, uncomplicated; F12.20 Cannabis dependence, uncomplicated; F10.90 Alcohol use, unspecified, uncomplicated; F17.210 Nicotine dependence, cigarettes, uncomplicated; Z81.8 Family history of other mental and behavioral disorders; F41.9 Anxiety disorder, unspecified; F32.A Depression, unspecified
CPT/HCPCS: 0241U; 36415; 80053; 80306; 80307; 84443; 85025; 93005; 97150; 97165; 99285

== ENCOUNTER 2025-10-30 18:05 | Emergency (ER) | payer SELFPAY ==
--- OUTSIDE RECORDS SUMMARY | 2025-10-30 18:11 | XMS_ITS | Clinical Summary ---
Author Organization [facility] Address [address] [place] [address] Phone Care Team Providers Care Strawhat Inspector And Packer Name Role Phone Pcp, No Primary Care Provider Unavailabl e Allergies Active Allergy Reactions Criticality Noted Date Comments Haloperidol Anxiety Low 08/03/2017 Metoclopramide Hcl Anxiety Low 08/03/2017 Medications No known medications Social History Tobacco Use Types Packs/Day Years Used Date Smoking Tobacco: Every Day Cigarettes 1 10 Smokeless Tobacco: Never Alcohol Use Standard Drinks/Week Comments No 0 (1 standard drink = 0.6 oz pur e alcohol) Sex and Gender Information Value Date Recorded Sex Assigned at Not on file Legal Sex Male 9:10 AM CDT Gender Identity Not on file Sexual Orientation Not on file Last Filed Vital Signs Vital Sign Reading Time Taken Comments Blood Pressure 132/92 08/04/2017 8:21 AM CDT Pulse 68 08/04/2017 8:21 AM CDT Temperature 36.4 C (97.6 F) 08/04/2017 8:21 AM CDT Respiratory Rate 14 08/04/2017 8:21 AM CDT Oxygen Saturation 99% 08/04/2017 8:21 AM CDT Inhaled Oxygen Concentration - - Weight 81.6 kg (180 lb) 08/04/2017 8:21 AM CDT Height 182.9 cm (6') 08/04/2017 8:21 AM CDT Body Mass Index 24.41 08/04/2017 8:21 AM CDT Plan of Treatment Not on file Care Teams Strawhat Inspector And Packer Relationship Specialty Start Date End Date Pcp, No PCP - General 08/03/17
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
[2025-10-30 18:12] VITALS: BP 128/81; PULSE 78; RESP 16; TEMP 36.7; O2SAT 96; BMI 34.5
[2025-10-30] MEDS: LORazepam 2 mg/mL INJ 1 mL IM (19:08)
--- NOTE | 2025-10-30 21:07 | W.ED.GENADLT ---
Documented by User: ELIZABETH Lyle 10/31/25 13:59 HPI - General Adult General: Chief complaint: General Medical Stated complaint: Withdrawing off Subozone,anxiety Time Seen by Provider: 10/30/25 18:43 Source: patient Mode of arrival: ambulatory Limitations: no limitations History of Present Illness: Patient is a 40-year-old male who presents Emergency Department planing of anxiety and restlessness. He has been able to sleep the past few days he notes that he has not taken his Suboxone for 3 days, and this has happened in the past when he has went without it. He is from [facility], he has difficulty explaining to me why he has been off the Suboxone ultimately just states he is here for something for his anxiety. He denies SI HI or hallucinations. MD complaint: Anxiety Associated symptoms: Deny chest pain, dyspnea, headache(s), nausea, rash, palpitations or vomiting Related Data Home Medications ?Medication ?Instructions ?Recorded ?Confirmed buprenorphine 8 mg-naloxone 2 mg tab sublingual 06/28/25 06/28/25 sublingual tablet bupropion HCl 150 mg tablet,12 hr 150 mg PO QAM 06/28/25 06/28/25 sustained-release levothyroxine 75 mcg tablet 75 mcg PO QDAY 06/28/25 06/28/25 trazodone 100 mg tablet mg PO 06/28/25 06/28/25 Previous Rx's ?Medication ?Instructions ?Recorded levothyroxine 25 mcg tablet 25 mcg PO QAM 30 days #30 tabs 10/05/24 paliperidone 3 mg tablet,extended 3 mg PO 2100 30 days #30 tabs 10/05/24 release 24 hr topiramate 50 mg tablet (Topamax) 50 mg PO BEDTIME 30 days #30 tabs 10/05/24 Allergies Allergy/AdvReac Type Severity Reaction Status Date / Time haloperidol (From Haldol) Allergy ADR-Anxiety Verified 10/30/25 18:15 metoclopramide (From Reglan) Allergy ADR-Anxiety Verified 10/30/25 18:15 Review of Systems General: Reports: 10 or more systems reviewed and unremarkable except in HPI and below Const: Denies: fever(s), chills or fatigue Eyes: Denies: change in vision ENMT: Denies: throat pain, ear or mastoid pain or nasal discharge Card: Denies: chest pain, palpitations, swelling of feet/ankles or lightheadedness Resp: Denies: dyspnea, productive cough or wheezing GI: Denies: abdominal pain, nausea, vomiting, diarrhea or constipation : Denies: flank pain, difficulty urinating, dysuria or urinary frequency Musc: Denies: neck pain, back pain or joint pain Skin/Breast: Denies: rash Neuro: Denies: headache(s), numbness in extremities or weakness in extremities Psych: Reports: anxiety and irritability; Denies: depression, visual hallucinations, auditory hallucinations, tactile hallucinations, suicidal ideation or homicidal ideation PFS ED PFSH: Medical History Closed nondisplaced fracture of second cervical vertebra, unspecified fracture morphology, initial encounter Surgical History Hx of tonsillectomy Social History Smoking and tobacco/nicotine status: current every day tobacco/nicotine user Alcohol intake: unknown Substance/Drug Use: current Marital status: Single Physical Exam Const: COMMON NORMALS: no acute distress, patient oriented x3 and no limitations GENERAL APPEARANCE: cooperative, comfortable and well developed ORIENTATION/CONSCIOUSNESS: Yes awake, Yes oriented to person, Yes oriented to place and Yes oriented to time HENMT: COMMON NORMALS: normocephalic, atraumatic and hearing grossly normal bilaterally HEAD & SCALP: normocephalic and atraumatic Eye: COMMON NORMALS: Equal, round and reactive pupils present, EOMs intact bilaterally and conjunctivae normal CONJUNCTIVA: Yes conjunctivae normal PUPIL: Yes Equal, round and reactive pupils present Neck/C-Spine: COMMON NORMALS: full ROM, supple and no JVD Resp: COMMON NORMALS: normal respiratory effort, No retractions, No use of accessory muscles and clear to auscultation bilaterally AUSCULTATION: clear to auscultation bilaterally Cardio: COMMON NORMALS: no JVD, regular rate, regular rhythm, No clicks present (Cardio), No murmurs present (Cardio) and No rub (Cardio) RATE: regular rate RHYTHM: regular rhythm Extremity: COMMON NORMALS: normal to inspection, full ROM and capillary refill normal Neuro: COMMON NORMALS: patient oriented x3, moves all extremities, no focal motor deficits and no sensory deficits noted SENSORIUM/ORIENTATION: Yes oriented to person, Yes oriented to place and Yes oriented to time Psych: COMMON NORMALS: mental status grossly normal, Normal thought process present and speech normal APPEARANCE: Yes grossly normal ATTITUDE: Yes calm ACTIVITY/MOTOR BEHAVIOR: Yes appropriate eye contact SPEECH: Yes normal speech THOUGHT PROCESS: Normal thought process present THOUGHT CONTENT: No Suicidality present, No Homicidality present and No Hallucination(s) present Skin: COMMON NORMALS: no rashes or lesions noted GENERAL SKIN EXAM: no rashes or lesions noted Course Vital Signs: Vital signs: Vital Signs Temperature 98.1 F 10/30/25 18:12 Pulse Rate 78 10/30/25 18:12 Respiratory Rate 16 10/30/25 18:12 Blood Pressure 128/81 10/30/25 18:12 Pulse Oximetry 96 10/30/25 18:12 Oxygen Delivery Me thod Room Air 10/30/25 18:12 MDM - General Adult Medical Decision Making Patient presented anxiety has been weaning off of Suboxone. Ativan here ameliorated his symptoms he had stated he was ready to go. He did not report any SI HI or hallucinations or any other concerns that would require consultation with psychiatry. He is at [facility] will be discharged back home and encouraged to return if he worsens. No radiology studies performed this visit Discharge Plan Discharge Patient Disposition: Home Clinical Impression: Anxiety Condition: Stable Prescriptions: No Action bupropion HCl 150 mg tablet sustained-release 12 hr 150 mg PO QAM levothyroxine 75 mcg tablet 75 mcg PO QDAY trazodone 100 mg tablet PO buprenorphine-naloxone 8-2 mg tablet, sublingual sublingual paliperidone 3 mg Tablet Extended Release 24 Hr 3 mg PO 2100 30 Days Qty: 30 1RF levothyroxine 25 mcg Tablet 25 mcg PO QAM 30 Days Qty: 30 1RF topiramate [Topamax] 50 mg Tablet 50 mg PO BEDTIME 30 Days Qty: 30 1RF Discharge Orders: Discharge ED (Routine); Ordered 10/30/25 Ordered By: Young Lacy Referrals: Ralph Snow FNP [Primary Care Provider, Family Practice] Patient Instructions: Patient Portal & Jair Instructions Activity Restrictions/Additional Instructions: Follow-up with primary care as we discussed. Take the Ativan provided for breakthrough anxiety. Return with any new or worsening. Print Language: Norwegian Coding Level of Care Code ED Information Technology Consultant for Chg Fwd Documented by User: Eric Serna, 10/31/25 17:04 HPI - General Adult General: Chief complaint: General Medical Stated complaint: Withdrawing off Subozone,anxiety Time Seen by Provider: 10/30/25 18:43 Related Data Home Medications ?Medication ?Instructions ?Recorded ?Confirmed buprenorphine 8 mg-naloxone 2 mg tab sublingual 06/28/25 06/28/25 sublingual tablet bupropion HCl 150 mg tablet,12 hr 150 mg PO QAM 06/28/25 06/28/25 sustained-release levothyroxine 75 mcg tablet 75 mcg PO QDAY 06/28/25 06/28/25 trazodone 100 mg tablet mg PO 06/28/25 06/28/25 Previous Rx's ?Medication ?Instructions ?Recorded levothyroxine 25 mcg tablet 25 mcg PO QAM 30 days #30 tabs 10/05/24 paliperidone 3 mg tablet,extended 3 mg PO 2100 30 days #30 tabs 10/05/24 release 24 hr topiramate 50 mg tablet (Topamax) 50 mg PO BEDTIME 30 days #30 tabs 10/05/24 Allergies Allergy/AdvReac Type Severity Reaction Status Date / Time haloperidol (From Haldol) Allergy ADR-Anxiety Verified 10/30/25 18:15 metoclopramide (From Reglan) Allergy ADR-Anxiety Verified 10/30/25 18:15 [facility] ED PFSH: Medical History Closed nondisplaced fracture of second cervical vertebra, unspecified fracture morphology, initial encounter Surgical History Hx of tonsillectomy Social History Smoking and tobacco/nicotine status: current every day tobacco/nicotine user Alcohol intake: unknown Substance/Drug Use: current Marital status: Single Course Vital Signs: Vital signs: Vital Signs Temperature 98.1 F 10/30/25 18:12 Pulse Rate 78 10/30/25 18:12 Respiratory Rate 16 10/30/25 18:12 Blood Pressure 128/81 10/30/25 18:12 Pulse Oximetry 96 10/30/25 18:12 Oxygen Delivery Me thod Room Air 10/30/25 18:12 MDM - General Adult Medical Decision Making Patient presented anxiety has been weaning off of Suboxone. Ativan here ameliorated his symptoms he had stated he was ready to go. He did not report any SI HI or hallucinations or any other concerns that would require consultation with psychiatry. He is at [facility] will be discharged back home and encouraged to return if he worsens. This patient was originally seen by Mr. Bambi PA-C. I agree with his history, evaluation and management. Discharge Plan Discharge Patient Disposition: Home Clinical Impression: Anxiety Condition: Stable Prescriptions: No Action bupropion HCl 150 mg tablet sustained-release 12 hr 150 mg PO QAM levothyroxine 75 mcg tablet 75 mcg PO QDAY trazodone 100 mg tablet PO buprenorphine-naloxone 8-2 mg tablet, sublingual sublingual paliperidone 3 mg Tablet Extended Release 24 Hr 3 mg PO 2100 30 Days Qty: 30 1RF levothyroxine 25 mcg Tablet 25 mcg PO QAM 30 Days Qty: 30 1RF topiramate [Topamax] 50 mg Tablet 50 mg PO BEDTIME 30 Days Qty: 30 1RF Discharge Orders: Discharge ED (Routine); Ordered 10/30/25 Ordered By: Young Lacy Referrals: Ralph Snow FNP [Primary Care Provider, Family Practice] Patient Instructions: Patient Portal & Jair Instructions Activity Restrictions/Additional Instructions: Follow-up with primary care as we discussed. Take the Ativan provided for breakthrough anxiety. Return with any new or worsening. Print Language: Norwegian Coding Level of Care Code ED Information Technology Consultant for Matty Garvin
== END 2025-10-30 20:30 | disposition home or self-care (01) ==
PROVIDERS: Emergency Provider Physician Assistant; PCP Nurse Practitioner Family
DX: F41.9 Anxiety disorder, unspecified (principal); Z72.0 Tobacco use
CPT/HCPCS: 96372; 99284; J2060; J9999

== ENCOUNTER 2025-10-31 22:50 | Emergency (ER) | payer SELFPAY ==
--- OUTSIDE RECORDS SUMMARY | 2025-10-31 22:57 | XMS_ITS | Clinical Summary ---
Author Organization [facility] Address [address] [place] [address] Care Team Providers Care Rack Pusher Name Role Phone Светлана Yu [facility] Primary Care Provider [phone] Allergies Active Allergy Reactions Criticality Noted Date Comments Haloperidol Lactate Delirium 12/08/2013 Pt's mother told us that he had a reaction to this when given before - It just makes him nuts . When pt was questioned he related that he was not allergic to anything. [facility] Metoclopramide Hcl Muscle Pain 12/08/2013 The pt was given this tonight here - he had muscle pain so we added this to his allergy list. 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
--- OUTSIDE RECORDS SUMMARY | 2025-10-31 22:57 | XMS_ITS | Clinical Summary ---
Author Organization [facility] Address [address] [place] [address] Phone Care Team Providers Care Aircraft Instrument Engineer Name Role Phone Pcp, No Primary Care [...] of Treatment Not on file Care Teams Aircraft Instrument Engineer Relationship Specialty Start Date End Date Pcp, No PCP - General 08/03/17
[2025-10-31 22:59] VITALS: BP 123/80; PULSE 69; RESP 18; TEMP 36.6; O2SAT 95; BMI 27.6
[2025-10-31 23:11] VITALS: BP 123/80; PULSE 70; RESP 17; O2SAT 96
--- NOTE | 2025-10-31 23:21 | ED_ITS ---
HPI - Anxiety General: Chief Complaint: Anxiety Stated Complaint: Off Seboxin\Anxiety Time Seen by Provider: 10/31/25 22:58 Source: patient Mode of arrival: ambulatory Limitations: no limitations History of Present Illness: Patient is a 40-year-old male presents to ED today with complaints related to withdrawing from Suboxone. Patient states he voluntarily wanted to get off this medication so was tapered off of it. He feels like his last dose was about a week ago. Patient states he does okay during the day but at night seems to get restless legs and feels anxious and cannot sit still or sleep. He was reportedly seen here yesterday and given Ativan which did help with symptoms. He does state he has an appointment tomorrow morning scheduled with the physician at [facility] to hopefully discuss this but is kindly requesting something to help him tonight. complaint: anxiety Onset (ago): day(s) Severity: moderate Quality: intermittent Place: home History of similar episodes: Yes Provoking factors: other (Withdrawing from opiates) Relieving factors: medication Associated symptoms: Reports other (Restlessness/anxiety); Deny chest pain, chills, fever(s), headache(s) or malaise Related Data Home Medications ?Medication ?Instructions ?Recorded ?Confirmed buprenorphine 8 mg-naloxone 2 mg tab sublingual 06/28/25 sublingual tablet bupropion HCl 150 mg tablet,12 hr 150 mg PO QAM 06/28/25 sustained-release levothyroxine 75 mcg tablet 75 mcg PO QDAY 06/28/25 trazodone 100 mg tablet mg PO 06/28/25 06/28/25 Previous Rx's ?Medication ?Instructions ?Recorded levothyroxine 25 mcg tablet 25 mcg PO QAM 30 days #30 tabs 10/05/24 paliperidone 3 mg tablet,extended 3 mg PO 2100 30 days #30 tabs 10/05/24 release 24 hr topiramate 50 mg tablet (Topamax) 50 mg PO BEDTIME 30 days #30 tabs 10/05/24 Allergies Allergy/AdvReac Type Severity Reaction Status Date / Time haloperidol (From Haldol) Allergy ADR-Anxiety Verified 10/30/25 18:15 metoclopramide (From Reglan) Allergy ADR-Anxiety Verified 10/30/25 18:15 Review of Systems Const: Denies: fever(s), chills, body aches, fatigue or malaise Card: Denies: chest pain Resp: Denies: dyspnea GI: Denies: abdominal pain Musc: Denies: neck pain, back pain, extremity pain or joint pain Skin/Breast: Denies: rash Neuro: Reports: other (Restlessness); Denies: headache(s), numbness in extremities, weakness in extremities, sensory changes or dizziness Psych: Reports: anxiety; Denies: suicidal ideation or homicidal ideation PFSH ED PFSH: Medical History Closed nondisplaced fracture of second cervical vertebra, unspecified fracture morphology, initial encounter Surgical History Hx of tonsillectomy Social History Smoking and tobacco/nicotine status: current every day tobacco/nicotine user Alcohol intake: unknown Substance/Drug Use: current Marital status: Single Physical Exam Const: COMMON NORMALS: no acute distress, average body habitus, patient oriented x3, no limitations, healthy appearing, alert and well nourished GENERAL APPEARANCE: cooperative OTHER: legs are restless HENMT: COMMON NORMALS: normocephalic and atraumatic HEAD & SCALP: normal to inspection, normocephalic and atraumatic FACE & SINUS: normal facial exam Resp: COMMON NORMALS: normal respiratory effort and clear to auscultation bilaterally AUSCULTATION: clear to auscultation bilaterally Cardio: COMMON NORMALS: regular rate and regular rhythm RATE: regular rate RHYTHM: regular rhythm GI: COMMON NORMALS: Normal to inspection, nondistended, normoactive bowel sounds present, Soft to palpation and non-tender PALPATION: Yes Soft to palpation Neuro: NICHOLAS COMA SCALE: document GCS findings [place] coma scale eye opening: Spontaneous [place] coma scale verbal response: Orientated [place] coma scale motor response: Obey commands Nicholas coma scale total score: 15 COMMON NORMALS: patient oriented x3, CN's II-XII intact bilaterally, moves all extremities, no focal motor deficits, no sensory deficits noted and gait normal SENSORIUM/ORIENTATION: Yes alert Psych: COMMON NORMALS: mental status grossly normal, Normal thought process present, cooperative, speech normal, denies homicidal ideation and denies suicidal ideation APPEARANCE: Yes grossly normal ATTITUDE: Yes calm SPEECH: Yes normal speech THOUGHT PROCESS: Normal thought process present Course Vital Signs: Vital signs: Vital Signs Temperature 97.8 F 10/31/25 22:59 Pulse Rate 70 10/31/25 23:11 Respiratory Rate 17 10/31/25 23:11 Blood Pressure 123/80 10/31/25 23:11 Pulse Oximetry 96 10/31/25 23:11 Oxygen Delivery Me thod Room Air 10/31/25 22:59 MDM - Anxiety Medical Decision Making Patient was given Ativan to help him sleep tomorrow. Plan will be for him to speak to physician through [facility] in the morning to discuss symptoms/options. Medical Records I reviewed the patient's medical records. No radiology studies performed this visit Discharge Plan Discharge Patient Disposition: Home Clinical Impression: Opiate withdrawal Condition: Stable Prescriptions: No Action bupropion HCl 150 mg tablet sustained-release 12 hr 150 mg PO QAM levothyroxine 75 mcg tablet 75 mcg PO QDAY trazodone 100 mg tablet PO buprenorphine-naloxone 8-2 mg tablet, sublingual sublingual paliperidone 3 mg Tablet Extended Release 24 Hr 3 mg PO 2100 30 Days Qty: 30 1RF levothyroxine 25 mcg Tablet 25 mcg PO QAM 30 Days Qty: 30 1RF topiramate [Topamax] 50 mg Tablet 50 mg PO BEDTIME 30 Days Qty: 30 1RF Discharge Orders: Discharge ED (Routine); Ordered 10/31/25 Ordered By: Yesenia Joyce Referrals: Светлана Yu, BOX COVERING MACHINE OPERATOR-C [Primary Care Provider, Nurse Practitioner] Patient Instructions: Patient Portal & Jair Instructions Print Language: Georgian Coding Level of Care Code ED Heavy Threader for Matty Garvin
[2025-10-31 23:45] VITALS: PULSE 67; RESP 18; O2SAT 97
[2025-10-31] MEDS: LORazepam 2 mg/mL INJ 1 mL IM (23:46)
[2025-10-31 23:49] VITALS: BP 128/80; PULSE 18; RESP 67; O2SAT 97
== END 2025-10-31 23:52 | disposition home or self-care (01) ==
PROVIDERS: Emergency Provider Physician Assistant; PCP Nurse Practitioner Family
DX: F11.23 Opioid dependence with withdrawal (principal)
CPT/HCPCS: 96372; 99284; J2060; J9999

== ENCOUNTER 2025-11-10 10:17 | Emergency (ER) | payer SELFPAY ==
--- NOTE | 2025-11-10 10:12 | XR_ITS ---
WS: [id number] Portable AP upright chest, 11/10/2025 Clinical Data: cp Comparison: Portable chest, 11/19/2021 Findings: No nodules, masses or effusions are seen. The heart is normal. The pulmonary vascularity is not increased. No pneumonia or pneumothorax is seen. Monitor leads are on the chest wall. XR/XR chest 1V portable [id number] Impression: Negative chest.
[2025-11-10 10:16] VITALS: BP 112/71; PULSE 74; RESP 15; TEMP 36.6; O2SAT 95; BMI 27.6
--- NOTE | 2025-11-10 10:19 | ECG_ITS ---
[facility] Date: 2025-11-10 Pat Name: Urbano Villeda Department: Room: Gender: Male Lead Loader: : 1985 Requested By: Young Álvarez Order Number: [id number] Reading MD: FRANCES HALL Measurements Intervals Wade Rate: 70 P: 62 OK: 176 QRS: 68 QRSD: 92 T: 53 QT: 406 QTc: 440 Interpretive Statements SINUS RHYTHM Compared to ECG 09/29/2024 15:07:54 No significant changes Electronically Signed On 11-10-2025 20:15:35 CHARTER COORDINATOR by FRANCES HALL [email or web address]
--- OUTSIDE RECORDS SUMMARY | 2025-11-10 10:20 | XMS_ITS | Clinical Summary ---
Author Organization [facility] Address [address] [place] [address] Phone Care Team Providers Care Information Receptionist Name Role Phone Pcp, No Primary Care [...] of Treatment Not on file Care Teams Information Receptionist Relationship Specialty Start Date End Date Pcp, No PCP - General 08/03/17
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
--- OUTSIDE RECORDS SUMMARY | 2025-11-10 10:20 | XMS_ITS | Encounter Summary ---
Author Organization [facility] Address 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
--- NOTE | 2025-11-10 10:29 | ED_ITS ---
HPI - Chest Pain 2 General: Chief Complaint: Chest Pain Stated Complaint: Chest Pain Source: patient Mode of arrival: EMS Limitations: no limitations History of Present Illness: Patient is a 40-year-old male with past medical history of substance abuse who presents emergency department for evaluation of chest pain that began this morning when he woke up. He is currently at [facility], he states that he had onset of a panic attack and he believes this is the reason he had chest pain, it has now subsided states that it only lasted for short while. He tells me that [facility] makes him come get checked out for the chest pain as sort of a protocol, he does not have any personal cardiac history. He states he has had similar pains in the past with panic attacks. He has no symptoms at this time other than mild anxiety. He also states he did not recently take his anxiety medication. Denies any recent drug use, he states he is at [facility] for his history of substance abuse and is here for rehabilitation. He is not really endorsing any chills or fevers, no shortness of breath, no nausea or vomiting, no dizziness or lightheadedness. 324 mg aspirin given prehospital. MD complaint: chest pain Prior episodes: Yes Pain location: substernal Pain radiation: none Context: other (Panic attack) Associated symptoms: Deny abdominal pain, dyspnea, fever(s), nausea, palpitations or vomiting Related Data Home Medications ?Medication ?Instructions ?Recorded ?Confirmed buprenorphine 8 mg-naloxone 2 mg tab sublingual 06/28/25 sublingual tablet bupropion HCl 150 mg tablet,12 hr 150 mg PO QAM 06/28/25 sustained-release levothyroxine 75 mcg tablet 75 mcg PO QDAY 06/28/25 trazodone 100 mg tablet mg PO 06/28/25 06/28/25 Previous Rx's ?Medication ?Instructions ?Recorded levothyroxine 25 mcg tablet 25 mcg PO QAM 30 days #30 tabs 10/05/24 paliperidone 3 mg tablet,extended 3 mg PO 2100 30 days #30 tabs 10/05/24 release 24 hr topiramate 50 mg tablet (Topamax) 50 mg PO BEDTIME 30 days #30 tabs 10/05/24 Allergies Allergy/AdvReac Type Severity Reaction Status Date / Time haloperidol (From Haldol) Allergy ADR-Anxiety Verified 10/30/25 18:15 metoclopramide (From Reglan) Allergy ADR-Anxiety Verified 10/30/25 18:15 Review of Systems 2 General: Reports: 10 or more systems reviewed and unremarkable except in HPI and below Const: Denies: fever(s), chills or fatigue Eyes: Denies: change in vision ENMT: Denies: throat pain, ear or mastoid pain or nasal discharge Card: Reports: chest pain; Denies: palpitations, swelling of feet/ankles or lightheadedness Resp: Denies: dyspnea, productive cough or wheezing GI: Denies: abdominal pain, nausea, vomiting, diarrhea or constipation : Denies: flank pain, difficulty urinating, dysuria or urinary frequency Musc: Denies: neck pain, back pain or joint pain Skin/Breast: Denies: rash Neuro: Denies: headache(s), numbness in extremities or weakness in extremities Psych: Reports: anxiety PFSH ED 2 PFSH: Medical History Closed nondisplaced fracture of second cervical vertebra, unspecified fracture morphology, initial encounter Surgical History Hx of tonsillectomy Social History Smoking and tobacco/nicotine status: current every day tobacco/nicotine user Alcohol intake: unknown Substance/Drug Use: current Marital status: Single Physical Exam 2 Const: COMMON NORMALS: no acute distress, patient oriented x3 and no limitations GENERAL APPEARANCE: cooperative, comfortable and well developed ORIENTATION/CONSCIOUSNESS: Yes awake, Yes oriented to person, Yes oriented to place and Yes oriented to time HENMT: COMMON NORMALS: normocephalic, atraumatic and hearing grossly normal bilaterally HEAD & SCALP: normocephalic and atraumatic Neck/C-Spine: COMMON NORMALS: full ROM, supple and no JVD Resp: COMMON NORMALS: normal respiratory effort, No retractions, No use of accessory muscles and clear to auscultation bilaterally AUSCULTATION: clear to auscultation bilaterally Cardio: COMMON NORMALS: no JVD, regular rate, regular rhythm, No clicks present (Cardio), No murmurs present (Cardio) and No rub (Cardio) RATE: r egular rate RHYTHM: regular rhythm GI: COMMON NORMALS: Normal to inspection, nondistended, normoactive bowel sounds present, Soft to palpation and non-tender AUSCULTATION: Yes normoactive bowel sounds PALPATION: Yes Soft to palpation RECTAL EXAM: Yes deferred Extremity: COMMON NORMALS: normal to inspection, full ROM and capillary refill normal Neuro: COMMON NORMALS: patient oriented x3, moves all extremities, no focal motor deficits and no sensory deficits noted SENSORIUM/ORIENTATION: Yes oriented to person, Yes oriented to place and Yes oriented to time Psych: COMMON NORMALS: mental status grossly normal and Normal thought process present THOUGHT PROCESS: Normal thought process present Skin: COMMON NORMALS: no rashes or lesions noted GENERAL SKIN EXAM: no rashes or lesions noted Course 2 Vital Signs: Vital signs: Vital Signs Temperature 97.8 F 11/10/25 10:16 Pulse Rate 74 11/10/25 10:16 Respiratory Rate 15 11/10/25 10:16 Blood Pressure 112/71 11/10/25 10:16 Pulse Oximetry 95 11/10/25 10:16 Oxygen Delivery Me thod Room Air 11/10/25 10:16 MDM - Chest Pain Medical Decision Making This patient presented by ambulance from [facility] for evaluation of chest pain that began this morning associate with panic attack. Patient tells me that he figured the chest pain was from his increase in anxiety and panic, as he tells me that he did not take his medications. However he states during relief had wanted him evaluated for the chest pain, here denied any pain or other symptoms. He was given Ativan for anxiety that he states was still present. Chest x-ray ordered and negative. EKG had demonstrated normal sinus rhythm with no ST segment changes. His blood work was all normal, notably a normal troponin. Heart score of 1. Minimal suspicion for ACS at this time, suspect it is related to his history of anxiety and panic and he is stable for discharge back to [facility]. Told to return with any worsening chest pain, onset of other anginal equivalents, or any other concerns that he has. Patient endorses understanding. Lab Data 11/10/25 10:36 11/10/25 10:36 Radiology Impressions Chest X-Ray 11/10/25 10:12 Impression: Negative chest. Laboratory Results WBC 8.01 10^3/uL (3.29-11.43) 11/10/25 10:36 RBC 4.74 10^6/uL (3.85-5.65) 11/10/25 10:36 Hgb 14.00 g/dL (11.27-16.99) 11/10/25 10:36 Hct 42.9 % (37-53) 11/10/25 10:36 MCV 90.5 fl (82-101) 11/10/25 10:36 MCH 29.5 pg (27-33) 11/10/25 10:36 MCHC 32.6 g/dL (30-55) 11/10/25 10:36 RDW 13.0 % (12.1-15.1) 11/10/25 10:36 Plt Count 278 10^3/cmm (157-399) 11/10/25 10:36 MPV 8.5 fL (7.4-10.4) 11/10/25 10:36 Neut % (Auto) 56.6 % 11/10/25 10:36 Lymph % (Auto) 27.3 % 11/10/25 10:36 Holt % (Auto) 9.6 % 11/10/25 10:36 Eos % (Auto) 5.4 % 11/10/25 10:36 Baso % (Auto) 0.9 % 11/10/25 10:36 Neut # (Auto) 4.53 10^3/uL (1.8-7.7) 11/10/25 10:36 Lymph # (Auto) 2.2 10^3/uL (0.8-4.8) 11/10/25 10:36 Holt # (Auto) 0.8 10^3/uL (0.2-0.9) 11/10/25 10:36 Eos # (Auto) 0.4 10^3/uL (0.0-0.8) 11/10/25 10:36 Baso # (Auto) 0.1 10^3/uL (0.0-0.1) 11/10/25 10:36 Nucleated RBC % (auto) 0 % 11/10/25 10:36 Nucleated RBCs # 0.0 /100WBC 11/10/25 10:36 Sodium 138 mmol/L (136-145) 11/10/25 10:36 Potassium 4.6 mmol/L (3.5-5.1) 11/10/25 10:36 Chloride 103 mmol/L (98-107) 11/10/25 10:36 Carbon Dioxide 25 mmol/L (22-29) 11/10/25 10:36 Anion Gap 14.6 (5-19) 11/10/25 10:36 BUN 15 mg/dL (6-20) 11/10/25 10:36 Creatinine 0.9 mg/dL (0.7-1.2) 11/10/25 10:36 GFR Calculation 93.0 mL/min (90-130) 11/10/25 10:36 Glucose 74 mg/dL (65-115) 11/10/25 10:36 Calculated Osmolality 285 mOsm/kg (285-295) 11/10/25 10:36 Calcium 9.3 mg/dL (8.5-10.5) 11/10/25 10:36 Total Bilirubin 0.2 mg/dL (0.15-1.2) 11/10/25 10:36 AST 27 U/L (0-40) 11/10/25 10:36 ALT 42 U/L (0-41) H 11/10/25 10:36 Alkaline Phosphatase 87 U/L (40-130) 11/10/25 10:36 Troponin T Baseline 7 ng/L (0-15) 11/10/25 10:36 Total Protein 6.4 g/dL (6.6-8.7) L 11/10/25 10:36 Albumin 4.3 g/dL (3.5-5.2) 11/10/25 10:36 Globulin 2.1 g/dL (1.3-4.6) 11/10/25 10:36 Urine Color Yellow (Yellow) 11/10/25 10:36 Urine Appearance Clear (CLEAR) 11/10/25 10:36 Urine pH 7.0 (5-7) 11/10/25 10:36 Ur Specific [place] 1.011 (1.005-1.030) 11/10/25 10:36 Urine Protein Negative (Negative) 11/10/25 10:36 Urine Glucose (UA) Negative (Normal) 11/10/25 10:36 Urine Ketones Negative (Negative) 11/10/25 10:36 Urine Blood Negative (Negative) 11/10/25 10:36 Urine Nitrate Negative (Negative) 11/10/25 10:36 Urine Bilirubin Negative (Negative) 11/10/25 10:36 Urine Urobilinogen 0.2 mg/dL (Negative) 11/10/25 10:36 Ur Leukocyte Esterase Negative (Negative) 11/10/25 10:36 Urine RBC 0-2 /hpf (0-2) 11/10/25 10:36 Urine WBC 0-5 /hpf (0-5) 11/10/25 10:36 Ur Squamous Epith Cells 0-5 /hpf (0-5) 11/10/25 10:36 Amorphous Sediment Not Reportable 11/10/25 10:36 Urine Bacteria None seen /hpf (NONE) 11/10/25 10:36 Hyaline Casts 0-4 /lpf H 11/10/25 10:36 All radiology interpretation(s) finalized by discharge EKG Data EKG 1: I personally reviewed and interpreted this EKG as follows: EKG interpretation date: 11/10/25 EKG interpretation time: 10:30 Prior EKG tracings: available for review Interpretation: Normal sinus rhythm. Rate 70. Normal axis. Normal intervals. No STEMI. No change from previous. Discharge Plan Discharge Patient Disposition: Home Clinical Impression: Chest pain, Anxiety Condition: Stable Prescriptions: No Action bupropion HCl 150 mg tablet sustained-release 12 hr 150 mg PO QAM levothyroxine 75 mcg tablet 75 mcg PO QDAY trazodone 100 mg tablet PO buprenorphine-naloxone 8-2 mg tablet, sublingual sublingual paliperidone 3 mg Tablet Extended Release 24 Hr 3 mg PO 2100 30 Days Qty: 30 1RF levothyroxine 25 mcg Tablet 25 mcg PO QAM 30 Days Qty: 30 1RF topiramate [Topamax] 50 mg Tablet 50 mg PO BEDTIME 30 Days Qty: 30 1RF Discharge Orders: Discharge ED (Routine); Ordered 11/10/25 Ordered By: Young Lacy Referrals: Светлана Yu FNP-C [Primary Care Provider, Nurse Practitioner] Patient Instructions: Chest Pain (ED), Patient Portal & Jair Instructions Activity Restrictions/Additional Instructions: Discharge Instructions - Chest Pain Evaluation Diagnosis: Chest pain, likely related to anxiety/panic disorder Summary of Your Visit: You came to the emergency department today with chest pain. We performed a thorough evaluation to make sure your heart was healthy and working properly. Your testing included: - Blood work (including troponin to check for heart damage) - Normal - Electrocardiogram (EKG/heart rhythm test) - Normal - Chest X-ray - Normal All of your tests were reassuring and showed no evidence of a heart attack or other serious heart problem. Your symptoms improved after receiving lorazepam (Ativan), which supports that your chest pain was likely related to anxiety or a panic attack rather than a heart problem. What This Means: Chest pain from anxiety and panic attacks is very common and can feel frightening, but it is not dangerous to your heart. Many people with anxiety disorders experience chest discomfort, rapid heartbeat, shortness of breath, and other physical symptoms that can mimic heart problems. Medications: Continue taking your medications as prescribed by your treatment team at the rehabilitation facility. Discuss your anxiety symptoms with your providers there so they can ensure you are receiving appropriate treatment for your anxiety disorder. Follow-Up Care: - Return to your rehabilitation facility as planned - Discuss this visit with your treatment team - Consider asking about cognitive-behavioral therapy or other treatments specifically for anxiety and panic symptoms, as these have been shown to be very effective - Follow up with your primary care provider or psychiatrist within 30 days to discuss ongoing management of your anxiety disorder When to Return to the Emergency Department: You should return to the emergency department or call 911 if you experience: - Chest pain that feels different from your usual anxiety-related symptoms - Chest pain accompanied by sweating, nausea, or pain radiating to your jaw, neck, or arm - Severe shortness of breath - Loss of consciousness or fainting - Any other symptoms that concern you Important Notes: While your evaluation today was reassuring, it is important to continue working with your healthcare team to manage your anxiety disorder. Effective treatments are available, including medications and therapy, that can significantly reduce the frequency and severity of panic attacks and anxiety-related chest pain. If you have questions about these instructions, please contact your rehabilitation facility staff or your primary care provider. Print Language: Andorran Coding Level of Care Code ED Running Specialist for Taraeric Fwray Heart Score HEART Score Components History: Slightly Suspicous EKG: Normal Age: Less than 45 yrs Risk Factors: 1 or 2 Risk Factors Troponin: Baseline Trop <16 ng/L HEART Score RESULT HEART Score: 1
[2025-11-10] MEDS: LORazepam 2 mg/mL INJ 1 mL IVP (10:31)
[2025-11-10 10:43] LABS: Hematocrit 42.9 % (37-53); Hemoglobin 14.00 g/dL (11.27-16.99); Mean Corpuscular HGB Conc 32.6 g/dL (30-55); Mean Corpuscular Hemoglobin 29.5 pg (27-33); Mean Corpuscular Volume 90.5 fl (82-101); Nucleated Red Blood Cells % 0 %; Platelet Count 278 10^3/cmm (157-399); Red Blood Count 4.74 10^6/uL (3.85-5.65); White Blood Count 8.01 10^3/uL (3.29-11.43)
[2025-11-10 10:56] LABS: Glucose Urine UA Negative (Normal); Nitrate Urine Negative (Negative); Specific Gravity, Urine 1.011 (1.005-1.030)
[2025-11-10 11:01] LABS: Add Urine Microscopic? YES
[2025-11-10 11:07] LABS: Alanine Aminotransferase 42 U/L (0-41); Albumin Level 4.3 g/dL (3.5-5.2); Alkaline Phosphatase 87 U/L (40-130); Anion Gap 14.6 (5-19); Aspartate Amino Transferase 27 U/L (0-40); Blood Urea Nitrogen 15 mg/dL (6-20); Calcium 9.3 mg/dL (8.5-10.5); Carbon Dioxide 25 mmol/L (22-29); Chloride 103 mmol/L (98-107); Globulin 2.1 g/dL (1.3-4.6); Glucose 74 mg/dL (65-115); Osmolality Calculated 285 mOsm/kg (285-295); Potassium 4.6 mmol/L (3.5-5.1); Sodium 138 mmol/L (136-145); Total Protein 6.4 g/dL (6.6-8.7)
[2025-11-10 11:09] LABS: Troponin(5th) Baseline 7 ng/L (0-15)
[2025-11-10 11:49] VITALS: BP 108/71; PULSE 63; O2SAT 96
== END 2025-11-10 11:52 | disposition home or self-care (01) ==
PROVIDERS: Emergency Provider Physician Assistant; PCP Nurse Practitioner Family
DX: R07.9 Chest pain, unspecified (principal); F41.9 Anxiety disorder, unspecified; Z72.0 Tobacco use
CPT/HCPCS: 36415; 71045; 80053; 81001; 84484; 85025; 93005; 96374; 99285; J2060

== ENCOUNTER 2025-11-12 00:01 | Inpatient (IN) | payer SELFPAY ==
--- OUTSIDE RECORDS SUMMARY | 2025-11-12 00:04 | XMS_ITS | Clinical Summary ---
Author Organization [facility] Address [address] [place] [address] Phone Care Team Providers Care Presser Automatic Name Role Phone Pcp, No Primary Care [...] of Treatment Not on file Care Teams Presser Automatic Relationship Specialty Start Date End Date Pcp, No PCP - General 08/03/17
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
[2025-11-12 00:07] VITALS: BMI 28.3
[2025-11-12 00:14] VITALS: BP 125/82; PULSE 70; RESP 18; TEMP 36.6; O2SAT 97
--- NOTE | 2025-11-12 00:16 | ED.C_ITS ---
Documented by User: ELIZABETH Lyle 11/12/25 00:51 HPI - Psych 2 General: Chief Complaint: Psychiatric Symptoms Stated Complaint: si Time Seen by Provider: 11/12/25 00:01 Source: patient and old records reviewed Mode of arrival: EMS Limitations: no limitations History of Present Illness: Patient is a 40-year-old male with past medical history of substance abuse presenting to the emergency department by ambulance from [facility] for evaluation of suicidal ideation. He has been seen here few times recently for anxiety, recently has been stopped on his Suboxone and he has been at [facility] for substance abuse rehabilitation. Tells me that this morning he woke up and had the sudden urge of hopelessness and not wanting to live anymore. He tells me that this has happened before and he has required previous hospitalizations in the psychiatric unit, tells me he does not have a plan and currently feels better and not suicidal but he is worried about how he felt this morning. No HI at this time, tells me he feels very anxious and has not been on any medications. Denies any hallucinations, no recent drug use. States that he thinks he needs to come into the neuropsychiatric unit to have his medications assessed and to talk to someone. MD complaint: suicidal ideation and feels depressed Duration: resolved prior to arrival History of same: Yes Associated symptoms: Reports depression and suicidal ideation; Deny auditory hallucinations, visual hallucinations or homicidal ideation If self harm: admits thoughts of self harm Related Data Home Medications ?Medication ?Instructions ?Recorded ?Confirmed trazodone 100 mg tablet 150 mg PO BEDTIME 06/28/25 1 01/13/25 Tim-Gest Antacid 750 mg PO Q8H PRN Indigestio n 11/12/25 11/12/25 Cepacol 1 vonnie PO Q1H PRN Cough 11/1211/12/25 Hydrocort 1 % topical QID PRN Itching 11/12/25 11/12/25 Milk of Magnesia (antacid) 30 ml PO BID PRN Indigestio n 11/12/25 11/12/25 Orajel 1 applic buccal QID PRN Mout h Pain 11/12/25 11/12/25 Robitussin Chest Congestion 10 ml PO Q4H PRN Cough 11/12/25 Stomach Relief 525 mg PO Q1H PRN stomach up set 11/12/25 11/12/25 Triple Antibiotic 1 applic topical TID PRN Wou nd Care 11/12/25 11/12/25 baclofen 10 mg PO TID PRN Spasms 10/1911/12/25 bupropion HCl 300 100 ml PO DAILY 11/12/25 11/12/25 levothyroxine 25 mcg tablet 50 mcg PO QAM 11/12/25 olanzapine 20 mg PO DAILY 11/12/2510/19 ondansetron 8 mg PO Q6H PRN Nausea And V omiting 11/12/25 11/12/25 polyethylene glycol 17 g PO DAILY PRN Constipati on 11/12/25 11/12/25 propranolol 20 mg PO TID PRN Anxiety 11/12/25 Previous Rx's ?Medication ?Instructions ?Recorded gabapentin 100 mg capsule 100 mg PO TID 30 days #90 ca ps 11/15/25 hydroxyzine pamoate 25 mg capsule 50 mg (2 x 25 mg) PO Q6H PRN 11/15/25 Anxiety 30 days #120 caps melatonin 3 mg tablet 6 mg (2 x 3 mg) PO BEDTIME 3 0 days 11/15/25 #60 tabs Allergies Allergy/AdvReac Type Severity Reaction Status Date / Time haloperidol (From Haldol) Allergy ADR-Anxiety Verified 10/30/25 18:15 metoclopramide (From Reglan) Allergy ADR-Anxiety Verified 10/30/25 18:15 Review of Systems 2 General: Reports: 10 or more systems reviewed and unremarkable except in HPI and below Const: Denies: fever(s), chills or fatigue Eyes: Denies: change in vision ENMT: Denies: throat pain, ear or mastoid pain or nasal discharge Card: Denies: chest pain, palpitations, swelling of feet/ankles or lightheadedness Resp: Denies: dyspnea, productive cough or wheezing GI: Denies: abdominal pain, nausea, vomiting, diarrhea or constipation : Denies: flank pain, difficulty urinating, dysuria or urinary frequency Musc: Denies: neck pain, back pain or joint pain Skin/Breast: Denies: rash Neuro: Denies: headache(s), numbness in extremities or weakness in extremities Psych: Reports: anxiety, depression, hopelessness and suicidal ideation; Denies: visual hallucinations, auditory hallucinations, tactile hallucinations or homicidal ideation PFSH ED 2 PFSH: Medical History Closed nondisplaced fracture of second cervical vertebra, unspecified fracture morphology, initial encounter Surgical History Hx of tonsillectomy Social History Smoking and tobacco/nicotine status: current every day tobacco/nicotine user Alcohol intake: unknown Substance/Drug Use: current Marital status: Single Physical Exam 2 Const: COMMON NORMALS: no acute distress, patient oriented x3 and no limitations GENERAL APPEARANCE: cooperative, comfortable and well developed ORIENTATION/CONSCIOUSNESS: Yes awake, Yes oriented to person, Yes oriented to place and Yes oriented to time HENMT: COMMON NORMALS: normocephalic, atraumatic and hearing grossly normal bilaterally HEAD & SCALP: normocephalic and atraumatic Neck/C-Spine: COMMON NORMALS: full ROM, supple and no JVD Resp: COMMON NORMALS: normal respiratory effort, No retractions, No use of accessory muscles and clear to auscultation bilaterally AUSCULTATION: clear to auscultation bilaterally Cardio: COMMON NORMALS: no JVD, regular rate, regular rhythm, No clicks present (Cardio), No murmurs present (Cardio) and No rub (Cardio) RATE: r egular rate RHYTHM: regular rhythm Extremity: COMMON NORMALS: normal to inspection, full ROM and capillary refill normal Neuro: COMMON NORMALS: patient oriented x3, moves all extremities, no focal motor deficits and no sensory deficits noted SENSORIUM/ORIENTATION: Yes oriented to person, Yes oriented to place and Yes oriented to time Psych: COMMON NORMALS: mental status grossly normal and speech normal A PPEARANCE: Yes grossly normal ATTITUDE: Yes calm ACTIVITY/MOTOR BEHAVIOR: Yes appropriate eye contact SPEECH: Yes normal speech MOOD & AFFECT: Yes depressed mood THOUGHT CONTENT: No Suicidality present, No Homicidality present and No Hallucination(s) present Skin: COMMON NORMALS: no rashes or lesions noted GENERAL SKIN EXAM: no rashes or lesions noted Course 2 Vital Signs: Vital signs: Vital Signs Temperature 97.6 F 11/15/25 13:40 Pulse Rate 101 H 11/15/25 13:40 Respiratory Rate 16 11/15/25 13:40 Blood Pressure 119/81 11/15/25 13:40 Pulse Oximetry 96 11/15/25 13:40 Oxygen Delivery Me thod Room Air 11/15/25 13:34 MDM - Psych Medical Decision Making Patient presents by ambulance from [facility] for reports of suicidal ideation. Of note he has been seen here 3 times previously in the recent weeks for acute anxiety, he has been at [facility] for rehabilitation off of substance use, previous presentations he has not complained of any SI or HI or hallucinations just anxiety. Tells me this morning woke up with the sensation of hopelessness and he is concerned that he started to have SI, no SI at this time but requesting that he be evaluated secondary to not being on any current medications. Patient cleared medically will admit to neuropsychiatric unit for further evaluation. Lab Data 11/12/25 01:11 11/12/25 01:11 Laboratory Results WBC 8.81 10^3/uL (3.29-11.43) 11/12/25 01:11 RBC 4.74 10^6/uL (3.85-5.65) 11/12/25 01:11 Hgb 14.20 g/dL (11.27-16.99) 11/12/25 01:11 Hct 42.6 % (37-53) 11/12/25 01:11 MCV 89.9 fl (82-101) 11/12/25 01:11 MCH 30.0 pg (27-33) 11/12/25 01:11 MCHC 33.3 g/dL (30-55) 11/12/25 01:11 RDW 13.0 % (12.1-15.1) 11/12/25 01:11 Plt Count 287 10^3/cmm (157-399) 11/12/25 01:11 MPV 8.5 fL (7.4-10.4) 11/12/25 01:11 Neut % (Auto) 55.0 % 11/12/25 01:11 Lymph % (Auto) 32.2 % 11/12/25 01:11 Amite % (Auto) 7.2 % 11/12/25 01:11 Eos % (Auto) 4.7 % 11/12/25 01:11 Baso % (Auto) 0.7 % 11/12/25 01:11 Neut # (Auto) 4.85 10^3/uL (1.8-7.7) 11/12/25 01:11 Lymph # (Auto) 2.8 10^3/uL (0.8-4.8) 11/12/25 01:11 Amite # (Auto) 0.6 10^3/uL (0.2-0.9) 11/12/25 01:11 Eos # (Auto) 0.4 10^3/uL (0.0-0.8) 11/12/25 01:11 Baso # (Auto) 0.1 10^3/uL (0.0-0.1) 11/12/25 01:11 Nucleated RBC % (auto) 0 % 11/12/25 01:11 Nucleated RBCs # 0.0 /100WBC 11/12/25 01:11 Sodium 140 mmol/L (136-145) 11/12/25 01:11 Potassium 4.1 mmol/L (3.5-5.1) 11/12/25 01:11 Chloride 104 mmol/L (98-107) 11/12/25 01:11 Carbon Dioxide 25 mmol/L (22-29) 11/12/25 01:11 Anion Gap 15.1 (5-19) 11/12/25 01:11 BUN 12 mg/dL (6-20) 11/12/25 01:11 Creatinine 0.8 mg/dL (0.7-1.2) 11/12/25 01:11 GFR Calculation 106.5 mL/min (90-130) 11/12/25 01:11 Glucose 97 mg/dL (65-115) 11/12/25 01:11 Calculated Osmolality 290 mOsm/kg (285-295) 11/12/25 01:11 Calcium 9.9 mg/dL (8.5-10.5) 11/12/25 01:11 Total Bilirubin 0.2 mg/dL (0.15-1.2) 11/12/25 01:11 AST 29 U/L (0-40) 11/12/25 01:11 ALT 53 U/L (0-41) H 11/12/25 01:11 Alkaline Phosphatase 86 U/L (40-130) 11/12/25 01:11 Total Protein 7.1 g/dL (6.6-8.7) 11/12/25 01:11 Albumin 4.4 g/dL (3.5-5.2) 11/12/25 01:11 Globulin 2.7 g/dL (1.3-4.6) 11/12/25 01:11 Salicylates < 0.3 mg/dL (3-10) L 11/12/25 01:11 Urine Opiates Screen Negative ng/mL (Negative) 11/12/25 00:23 Acetaminophen < 5.0 ug/mL (10-30) L 11/12/25 01:11 Ur Barbiturates Screen Negative ng/mL (Negative) 11/12/25 00:23 Ur Phencyclidine Scrn Negative ng/mL (Negative) 11/12/25 00:23 Ur Amphetamines Screen Negative ng/mL (Negative) 11/12/25 00:23 U Benzodiazepines Scrn Negative ng/mL (Negative) 11/12/25 00:23 Urine Cocaine Screen Negative ng/mL (Negative) 11/12/25 00:23 U Marijuana (THC) Screen Negative ng/mL (Negative) 11/12/25 00:23 Ethyl Alcohol < 10 mg/dL (0-10) 11/12/25 01:11 No radiology studies performed this visit Discharge Plan Discharge Patient Disposition: Admitted As Inpatient Admit Provider: Osvaldo Tobar Clinical Impression: Suicidal ideation Condition: Stable Discharge Diet: Regular Discharge Activity: Resume usual activity Coding Level of Care Code ED Rotary Furnace Operator for Chg Fwd Documented by User: Eric Serna DO 11/19/25 17:56 HPI - Psych 2 General: Chief Complaint: Psychiatric Symptoms Stated Complaint: si Time Seen by Provider: 11/12/25 00:01 Related Data Home Medications ?Medication ?Instructions ?Recorded ?Confirmed trazodone 100 mg tablet 150 mg PO BEDTIME 06/28/25 1 01/13/25 Tim-Gest Antacid 750 mg PO Q8H PRN Indigestio n 11/12/25 11/12/25 Cepacol 1 vonnie PO Q1H PRN Cough 11/1211/12/25 Hydrocort 1 % topical QID PRN Itching 11/12/25 11/12/25 Milk of Magnesia (antacid) 30 ml PO BID PRN Indigestio n 11/12/25 11/12/25 Orajel 1 applic buccal QID PRN Mout h Pain 11/12/25 11/12/25 Robitussin Chest Congestion 10 ml PO Q4H PRN Cough 11/12/25 Stomach Relief 525 mg PO Q1H PRN stomach up set 11/12/25 11/12/25 Triple Antibiotic 1 applic topical TID PRN Wou nd Care 11/12/25 11/12/25 baclofen 10 mg PO TID PRN Spasms 10/1911/12/25 bupropion HCl 300 100 ml PO DAILY 11/12/25 11/12/25 levothyroxine 25 mcg tablet 50 mcg PO QAM 11/12/25 olanzapine 20 mg PO DAILY 11/12/2510/19 ondansetron 8 mg PO Q6H PRN Nausea And V omiting 11/12/25 11/12/25 polyethylene glycol 17 g PO DAILY PRN Constipati on 11/12/25 11/12/25 propranolol 20 mg PO TID PRN Anxiety 11/12/25 Previous Rx's ?Medication ?Instructions ?Recorded gabapentin 100 mg capsule 100 mg PO TID 30 days #90 ca ps 11/15/25 hydroxyzine pamoate 25 mg capsule 50 mg (2 x 25 mg) PO Q6H PRN 11/15/25 Anxiety 30 days #120 caps melatonin 3 mg tablet 6 mg (2 x 3 mg) PO BEDTIME 3 0 days 11/15/25 #60 tabs Allergies Allergy/AdvReac Type Severity Reaction Status Date / Time haloperidol (From Haldol) Allergy ADR-Anxiety Verified 10/30/25 18:15 metoclopramide (From Reglan) Allergy ADR-Anxiety Verified 10/30/25 18:15 PFSH ED 2 PFSH: Medical History Closed nondisplaced fracture of second cervical vertebra, unspecified fracture morphology, initial encounter Surgical History Hx of tonsillectomy Social History Smoking and tobacco/nicotine status: current every day tobacco/nicotine user Alcohol intake: unknown Substance/Drug Use: current Marital status: Single Course 2 Vital Signs: Vital signs: Vital Signs Temperature 97.6 F 11/15/25 13:40 Pulse Rate 101 H 11/15/25 13:40 Respiratory Rate 16 11/15/25 13:40 Blood Pressure 119/81 11/15/25 13:40 Pulse Oximetry 96 11/15/25 13:40 Oxygen Delivery Me thod Room Air 11/15/25 13:34 MDM - Psych Medical Decision Making Patient presents by ambulance from [facility] for reports of suicidal ideation. Of note he has been seen here 3 times previously in the recent weeks for acute anxiety, he has been at [facility] for rehabilitation off of substance use, previous presentations he has not complained of any SI or HI or hallucinations just anxiety. Tells me this morning woke up with the sensation of hopelessness and he is concerned that he started to have SI, no SI at this time but requesting that he be evaluated secondary to not being on any current medications. Patient cleared medically will admit to neuropsychiatric unit for further evaluation. Patient was originally seen by Mr. Bambi PA-C. I agree with his history, evaluation, and management. Patient is not placed under 96-hour hold, as he is voluntary at this time, not currently suicidal but has been suicidal in the last 24 hours. He is appropriate for inpatient management regarding this. Lab Data 11/12/25 01:11 11/12/25 01:11 Laboratory Results WBC 8.81 10^3/uL (3.29-11.43) 11/12/25 01:11 RBC 4.74 10^6/uL (3.85-5.65) 11/12/25 01:11 Hgb 14.20 g/dL (11.27-16.99) 11/12/25 01:11 Hct 42.6 % (37-53) 11/12/25 01:11 MCV 89.9 fl (82-101) 11/12/25 01:11 MCH 30.0 pg (27-33) 11/12/25 01:11 MCHC 33.3 g/dL (30-55) 11/12/25 01:11 RDW 13.0 % (12.1-15.1) 11/12/25 01:11 Plt Count 287 10^3/cmm (157-399) 11/12/25 01:11 MPV 8.5 fL (7.4-10.4) 11/12/25 01:11 Neut % (Auto) 55.0 % 11/12/25 01:11 Lymph % (Auto) 32.2 % 11/12/25 01:11 Amite % (Auto) 7.2 % 11/12/25 01:11 Eos % (Auto) 4.7 % 11/12/25 01:11 Baso % (Auto) 0.7 % 11/12/25 01:11 Neut # (Auto) 4.85 10^3/uL (1.8-7.7) 11/12/25 01:11 Lymph # (Auto) 2.8 10^3/uL (0.8-4.8) 11/12/25 01:11 Amite # (Auto) 0.6 10^3/uL (0.2-0.9) 11/12/25 01:11 Eos # (Auto) 0.4 10^3/uL (0.0-0.8) 11/12/25 01:11 Baso # (Auto) 0.1 10^3/uL (0.0-0.1) 11/12/25 01:11 Nucleated RBC % (auto) 0 % 11/12/25 01:11 Nucleated RBCs # 0.0 /100WBC 11/12/25 01:11 Sodium 140 mmol/L (136-145) 11/12/25 01:11 Potassium 4.1 mmol/L (3.5-5.1) 11/12/25 01:11 Chloride 104 mmol/L (98-107) 11/12/25 01:11 Carbon Dioxide 25 mmol/L (22-29) 11/12/25 01:11 Anion Gap 15.1 (5-19) 11/12/25 01:11 BUN 12 mg/dL (6-20) 11/12/25 01:11 Creatinine 0.8 mg/dL (0.7-1.2) 11/12/25 01:11 GFR Calculation 106.5 mL/min (90-130) 11/12/25 01:11 Glucose 97 mg/dL (65-115) 11/12/25 01:11 Calculated Osmolality 290 mOsm/kg (285-295) 11/12/25 01:11 Calcium 9.9 mg/dL (8.5-10.5) 11/12/25 01:11 Total Bilirubin 0.2 mg/dL (0.15-1.2) 11/12/25 01:11 AST 29 U/L (0-40) 11/12/25 01:11 ALT 53 U/L (0-41) H 11/12/25 01:11 Alkaline Phosphatase 86 U/L (40-130) 11/12/25 01:11 Total Protein 7.1 g/dL (6.6-8.7) 11/12/25 01:11 Albumin 4.4 g/dL (3.5-5.2) 11/12/25 01:11 Globulin 2.7 g/dL (1.3-4.6) 11/12/25 01:11 Salicylates < 0.3 mg/dL (3-10) L 11/12/25 01:11 Urine Opiates Screen Negative ng/mL (Negative) 11/12/25 00:23 Acetaminophen < 5.0 ug/mL (10-30) L 11/12/25 01:11 Ur Barbiturates Screen Negative ng/mL (Negative) 11/12/25 00:23 Ur Phencyclidine Scrn Negative ng/mL (Negative) 11/12/25 00:23 Ur Amphetamines Screen Negative ng/mL (Negative) 11/12/25 00:23 U Benzodiazepines Scrn Negative ng/mL (Negative) 11/12/25 00:23 Urine Cocaine Screen Negative ng/mL (Negative) 11/12/25 00:23 U Marijuana (THC) Screen Negative ng/mL (Negative) 11/12/25 00:23 Ethyl Alcohol < 10 mg/dL (0-10) 11/12/25 01:11 Discharge Plan Discharge Patient Disposition: Admitted As Inpatient Admit Provider: Osvaldo Tobar Clinical Impression: Suicidal ideation Condition: Stable Discharge Diet: Regular Discharge Activity: Resume usual activity Coding Level of Care Code ED Rotary Furnace Operator for Matty Garvin
[2025-11-12] MEDS: LORazepam 2 mg/mL INJ 1 mL IM (00:18)
[2025-11-12 00:37] LABS: PCP Screen Urine Negative (Negative)
[2025-11-12 01:14] VITALS: BP 134/71; PULSE 72; RESP 18; O2SAT 99
[2025-11-12 01:20] LABS: Hematocrit 42.6 % (37-53); Hemoglobin 14.20 g/dL (11.27-16.99); Mean Corpuscular HGB Conc 33.3 g/dL (30-55); Mean Corpuscular Hemoglobin 30.0 pg (27-33); Mean Corpuscular Volume 89.9 fl (82-101); Nucleated Red Blood Cells % 0 %; Platelet Count 287 10^3/cmm (157-399); Red Blood Count 4.74 10^6/uL (3.85-5.65); White Blood Count 8.81 10^3/uL (3.29-11.43)
[2025-11-12 01:21] VITALS: BP 119/82; PULSE 76; RESP 17; TEMP 36.4; O2SAT 95
[2025-11-12 01:40] LABS: Acetaminophen < 5.0 ug/mL (10-30); Alanine Aminotransferase 53 U/L (0-41); Albumin Level 4.4 g/dL (3.5-5.2); Alcohol Level < 10 mg/dL (0-10); Alkaline Phosphatase 86 U/L (40-130); Anion Gap 15.1 (5-19); Aspartate Amino Transferase 29 U/L (0-40); Blood Urea Nitrogen 12 mg/dL (6-20); Calcium 9.9 mg/dL (8.5-10.5); Carbon Dioxide 25 mmol/L (22-29); Chloride 104 mmol/L (98-107); Globulin 2.7 g/dL (1.3-4.6); Glucose 97 mg/dL (65-115); Osmolality Calculated 290 mOsm/kg (285-295); Potassium 4.1 mmol/L (3.5-5.1); Salicylate < 0.3 mg/dL (3-10); Sodium 140 mmol/L (136-145); Total Protein 7.1 g/dL (6.6-8.7)
--- NOTE | 2025-11-12 02:10 | PC.NURSE ---
Skin was in tact with no garcía or abrasions. Pt was calm and collected with no behavioral issues at this time.
--- NOTE | 2025-11-12 02:12 | PC.ADMIT ---
[address] Admission Note: The patient,Urbano Villeda,40 y/o, was given written information regarding hospital policies, unit procedures and contact persons. Patient's smoking status: current every day smoker. Vital Signs - 8 hr 11/12/25 00:14 11/12/25 01:14 11/12/25 01:21 Temperature 97.9 F 97.6 F Pulse Rate 70 72 76 Respiratory Rate 18 18 17 Blood Pressure 125/82 134/71 119/82 Pulse Oximetry 97 99 95 Oxygen Delivery Method Room Air 11/12/25 01:21 Temperature Pulse Rate Respiratory Rate Blood Pressure Pulse Oximetry Oxygen Delivery Method Room Air Skin was in tact with no garcía or abrasions. Pt was calm and collected with no behavioral issues at this time.
[2025-11-12 03:21] VITALS: BP 122/86; PULSE 95; RESP 18; TEMP 36.3; O2SAT 96
--- NOTE | 2025-11-12 11:17 | W.PM.NPUH&PS ---
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 Discharge Summary At the time of discharge, he endorsed being absent lethality and psychosis. His mood and anxiety were well managed. He endorsed a plan to avoid opiate abuse and follow-up with services outside of the hospital per the treatment team recommendations. He was evaluated and deemed absent credible lethality and had received the maximum benefit from an inpatient hospitalization, so he was discharged. Hospital Course During the hospitalization, the patient had routine laboratory studies which were within normal limits except for a few outliers. Additionally, there was a general medical evaluation which was also within normal limits and revealed no new acute processes. At the time of discharge, lethality was denied and psychosis was resolving. Mood and anxiety were well managed. The patient endorsed a plan to avoid all drugs of abuse and follow up with the aftercare recommendations of the treatment team. The patient was evaluated and deemed to be absent credible lethality and had achieved the maximum benefit from an inpatient hospitalization, and so was discharged. The patient was started on Invega 3 mg at night. He was also given trazodone and Topamax as previously prescribed without any side effects noted. He was agreeable to return to [facility] for further substance abuse treatment on an inpatient basis. Meds NPU Home Medications ?Medication ?Instructions ?Recorded ?Confirmed ?Last Taken ?Type trazodone 100 mg tablet 150 mg PO BEDTIME 06/28/25 11/12/25 1 Day Ago History ~11/11/25 150 Tim-Gest Antacid 750 mg PO Q8H PRN Indigestion 11/12/25 11/12/25 Unknown History Cepacol 1 vonnie PO Q1H PRN Cough 11/12/25 11/12/25 Unknown History Hydrocort 1 % topical QID PRN Itching 11/12/25 11/12/25 Unknown History Milk of Magnesia (antacid) 30 ml PO BID PRN Indigestion 11/12/25 11/12/25 Unknown History Orajel 1 applic buccal QID PRN Mouth Pain 11/12/25 11/12/25 Unknown History Robitussin Chest Congestion 10 ml PO Q4H PRN Cough 11/12/25 11/12/25 Unknown History Stomach Relief 525 mg PO Q1H PRN stomach upset 11/12/25 11/12/25 Unknown History Triple Antibiotic 1 applic topical TID PRN Wound Care 11/12/25 11/12/25 Unknown History baclofen 10 mg PO TID PRN Spasms 11/12/25 11/12/25 Unknown History bupropion HCl 300 100 ml PO DAILY 11/12/25 11/12/25 1 Day Ago History ~11/11/25 300 mg levothyroxine 25 mcg tablet 50 mcg PO QAM 11/12/25 11/12/25 1 Day Ago History ~11/11/25 50 mg melatonin 5 mg PO BEDTIME 11/12/25 11/12/25 Unknown History olanzapine 20 mg PO DAILY 11/12/25 11/12/25 1 Day Ago History ~11/11/25 20 mg ondansetron 8 mg PO Q6H PRN Nausea And Vomiting 11/12/25 11/12/25 Unknown History polyethylene glycol 17 g PO DAILY PRN Constipation 11/12/25 11/12/25 Unknown History propranolol 20 mg PO TID PRN Anxiety 11/12/25 11/12/25 Unknown History Allergies Allergy/AdvReac Type Severity Reaction Status Date / Time haloperidol (From Haldol) Allergy ADR-Anxiety Verified 10/30/25 18:15 metoclopramide (From Reglan) Allergy ADR-Anxiety Verified 10/30/25 18:15 PFSH NPU PFSH: Medical History (Updated 11/12/25 @ 00:31 by ELIZABETH Lyle) Closed nondisplaced fracture of second cervical vertebra, unspecified fracture morphology, initial encounter Surgical History Hx of tonsillectomy Social History Smoking and tobacco/nicotine status: current every day tobacco/nicotine user Alcohol intake: unknown Substance/Drug Use: current Marital status: Single Mental Status Exam MSE Comments: This is a well-nourished, well-developed white male older appearing than his stated age with limited grooming and eye contact. No abnormal movements except for psychomotor retardation. Mostly cooperative with exam in mild to moderate distress. Speech was decreased rate and volume. Mood described as depressed but mostly anxious, affect congruent and subdued. Thought process organized. Thought content: Patient denied suicidal or homicidal ideations, he did endorse paranoia but no delusions were noted, he denied any auditory or visual hallucinations. Attention and concentration were intact and memory appeared mostly intact but none were formally tested. He is alert and oriented ?3. Insight and judgment are limited. Impulse control is poor. Vitals/I&O/Wt Last Vital Signs Temp 97.4 F L 11/12/25 03:21 Pulse 95 11/12/25 03:21 Resp 18 11/12/25 03:21 BP 122/86 11/12/25 03:21 Pulse Ox 96 11/12/25 03:21 O2 Del Method Room Air 11/12/25 03:21 Weight last 48 hrs Weight 94.801 kg Data NPU 11/12/25 01:11 11/12/25 01:11 A&P Assessment and plan 1. Methamphetamine abuse: 2. Cannabis use disorder, moderate, dependence: 3. Anxiety: 4. Depressive disorder: Plan: This is a 40-year old male with a long history of addiction and mental health challenges with frequent past hospitalizations without clear outpatient follow-up who presents with his methamphetamine, cannabis and alcohol use basically and check as he has been in inpatient substance abuse treatment for the past 26 days reporting depression and anxiety and wanting assistance with his anxiety. Plan: 1. Restart medications. 2. Continue every 15 minute checks for safety. 3. Encourage individual, group and milieu therapies. 4. Encourage sober living treatment after discharge at the highest level of care to which he is willing to commit. He will return to [facility] at the beginning of the week. 5. Get collateral information. 6. Evaluate against the backdrop of the 96-hour hold. PDMP PDMP Reviewed: Not Reviewed Involuntary Hold Information Hold Status: Date/Time Hold Expires: vol 96 Hour Hold: 96 Hour Involuntary Admission: Yes Other Hold: Hold End Date: 10/05/24 Attestations NPU Medical Necessity Statement*: Inpatient hospitalization is medically necessary and the clinically appropriate intervention at this time. We will initiate medications and make changes as indicated. He will be in the hospital for over 2 midnights. Likely length of stay 3-5 days. Coding Level of Care Code Acute Code for [facility] Fwd Diagnoses Methamphetamine abuse F15.10 Cannabis use disorder, moderate, dependence F12.20 Anxiety F41.9 Depressive disorder F32.A
[2025-11-12 14:00] VITALS: BP 109/81; PULSE 91; RESP 16; TEMP 36.4; O2SAT 97
--- NOTE | 2025-11-12 17:14 | PC.OT ---
OT EVAL ATTEMPTED WITH PT SLEEPING SOUNDLY; WILL ATTEMPT AGAIN AT LATER TIME.
[2025-11-12 20:24] VITALS: BP 122/84; PULSE 93; RESP 19; TEMP 36.3; O2SAT 95
[2025-11-12] MEDS: MELATONIN 3 MG TABLET 6 MG PO (23:16)
[2025-11-13 06:00] VITALS: RESP 14
--- NOTE | 2025-11-13 06:30 | PC.NURSE ---
vitals vs not collected, pt asleep, nurse aware, resp 14
--- NOTE | 2025-11-13 08:55 | P.NPUPN_ITS ---
Subjective NPU 2 Subjective: Patient presented today reporting that he is doing okay. He was very focused on his anxiety and at 1 point this writer producer received a call overnight regarding his anxiety and a request for Ativan as other options appeared exhausted. We discussed the fact that this was delivered as a one-time intervention but that given his addiction history, him reportedly being days from graduating from [employer] and long-term success likelihood that Ativan or benzodiazepines cannot be a treatment of choice. We discussed other options like Seroquel, Neurontin and BuSpar including the risks, benefits and alternatives and he understood and agreed to proceed as is documented in this note. He denied any side effects to his current medications. Mental Status Exam 2 MSE Comments: This is a well-nourished, well-developed white male older appearing than his stated age with limited grooming and eye contact. No abnormal movements except for psychomotor retardation. Mostly cooperative with exam in mild to moderate distress. Speech was decreased rate and volume. Mood described as anxious, affect congruent. Thought process organized. Thought content: Patient denied suicidal or homicidal ideations, he did endorse paranoia but no delusions were noted, he denied any auditory or visual hallucinations. Attention and concentration were intact and memory appeared mostly intact but none were formally tested. He is alert and oriented ?3. Insight and judgment are limited. Impulse control is poor. Vitals/I&O/Wt Last Vital Signs Temp 97.4 F L 11/12/25 20:24 Pulse 93 11/12/25 20:24 Resp 14 11/13/25 06:00 BP 122/84 11/12/25 20:24 Pulse Ox 95 11/12/25 20:24 O2 Del Method Room Air 11/12/25 20:24 Weight last 48 hrs Weight 94.801 kg Data NPU 11/12/25 01:11 11/12/25 01:11 A&P Assessment and plan 1. Methamphetamine abuse: 2. Cannabis use disorder, moderate, dependence: 3. Anxiety: 4. Depressive disorder: Plan: This is a 40-year old male with a long history of addiction and mental health challenges with frequent past hospitalizations without clear outpatient follow-up who presents with his methamphetamine, cannabis and alcohol use basically and check as he has been in inpatient substance abuse treatment for the past 26 days reporting depression and anxiety and wanting assistance with his anxiety. Plan: 1. Restart medications. Initiate BuSpar 10 mg p.o. twice daily and titrate to effective dose. 2. Continue every 15 minute checks for safety. 3. Encourage individual, group and milieu therapies. 4. Encourage sober living treatment after discharge at the highest level of care to which he is willing to commit. He will return to [facility]note [facility] at the beginning of the week. 5. Get collateral information. 6. Evaluate against the backdrop of the 96-hour hold. PDMP PDMP Reviewed: Not Reviewed Involuntary Hold Information 2 Hold Status: Date/Time Hold Expires: vol 96 Hour Hold: 96 Hour Involuntary Admission: Yes Other Hold: Hold End Date: 10/05/24 Attestations NPU 2 Medical Necessity Statement*: Inpatient hospitalization is medically necessary and the clinically appropriate intervention at this time. We will initiate medications and make changes as indicated. Likely length of stay 2-4 days. Coding Level of Care Code Acute Code for [facility] Fwd Diagnoses Methamphetamine abuse F15.10 Cannabis use disorder, moderate, dependence F12.20 Anxiety F41.9 Depressive disorder F32.A
[2025-11-13 13:57] VITALS: BP 118/82; PULSE 94; RESP 15; TEMP 37.1; O2SAT 96
[2025-11-13 20:32] VITALS: BP 111/82; PULSE 95; RESP 18; TEMP 36.7; O2SAT 95
[2025-11-13] MEDS: MELATONIN 3 MG TABLET 6 MG PO (20:34)
[2025-11-13 21:28] VITALS: BMI 28.0
[2025-11-14 06:00] VITALS: RESP 17
--- NOTE | 2025-11-14 06:31 | PC.NURSE ---
vs not collected, pt asleep, nurse aware, resp 17
--- NOTE | 2025-11-14 07:11 | W.PM.NPUPNS ---
Subjective NPU Subjective: Patient presented today reporting that he is doing okay. He endorsed a desire to return to [facility] sooner rather than later. We discussed meeting with the social work team in the morning and considering discharge tomorrow. We discussed the risks, benefits and alternatives of increasing his BuSpar to 15 mg p.o. 3 times daily and he understood and agreed to proceed as is documented in this note. He denied any side effects to the medication and we discussed a tentative plan for discharging in the morning. Mental Status Exam MSE Comments: This is a well-nourished, well-developed white male older appearing than his stated age with limited grooming and eye contact. No abnormal movements except for resolving/decreasing psychomotor retardation. Mostly cooperative with exam in mild distress. Speech was slightly decreased rate and volume. Mood described as anxious, but improving, affect congruent. Thought process organized. Thought content: Patient denied suicidal or homicidal ideations, no delusions were reported or noted, he denied any auditory or visual hallucinations. Attention and concentration were intact and memory appeared mostly intact but none were formally tested. He is alert and oriented ?3. Insight and judgment are limited. Impulse control is limited but improving. Vitals/I&O/Wt Last Vital Signs Temp 98.0 F 11/13/25 20:32 Pulse 95 11/13/25 20:32 Resp 17 11/14/25 06:00 BP 111/82 11/13/25 20:32 Pulse Ox 95 11/13/25 20:32 O2 Del Method Room Air 11/13/25 20:32 Weight last 48 hrs Weight 93.95 kg Data NPU 11/12/25 01:11 11/12/25 01:11 A&P Assessment and plan 1. Methamphetamine abuse: 2. Cannabis use disorder, moderate, dependence: 3. Anxiety: 4. Depressive disorder: Plan: This is a 40-year old male with a long history of addiction and mental health challenges with frequent past hospitalizations without clear outpatient follow-up who presents with his methamphetamine, cannabis and alcohol use basically and check as he has been in inpatient substance abuse treatment for the past 26 days reporting depression and anxiety and wanting assistance with his anxiety. Plan: 1. Restart medications. Initiated BuSpar 10 mg p.o. twice daily and titrate to effective dose. Consider increase prior to discharge. 2. Continue every 15 minute checks for safety. 3. Encourage individual, group and milieu therapies. 4. Encourage sober living treatment after discharge at the highest level of care to which he is willing to commit. He will return to [facility] at the beginning of the week. 5. Get collateral information. 6. Evaluate against the backdrop of the 96-hour hold. PDMP PDMP Reviewed: Not Reviewed Involuntary Hold Information Hold Status: Date/Time Hold Expires: vol 96 Hour Hold: 96 Hour Involuntary Admission: Yes Other Hold: Hold End Date: 10/05/24 Attestations NPU Medical Necessity Statement*: Inpatient hospitalization is medically necessary and the clinically appropriate intervention at this time. We will initiate medications and make changes as indicated. Likely length of stay 1-3 days. Coding Level of Care Code Acute Code for [facility] Fwd Diagnoses Methamphetamine abuse F15.10 Cannabis use disorder, moderate, dependence F12.20 Anxiety F41.9 Depressive disorder F32.A
[2025-11-14 14:00] VITALS: BP 114/82; PULSE 98; RESP 16; TEMP 36.6; O2SAT 96
[2025-11-14] MEDS: MELATONIN 3 MG TABLET 6 MG PO (19:56)
[2025-11-14 20:50] VITALS: BP 109/72; PULSE 92; RESP 17; TEMP 36.4; O2SAT 97
[2025-11-15 01:48] VITALS: BP 127/91; PULSE 81; RESP 18; TEMP 36.3; O2SAT 95
--- NOTE | 2025-11-15 13:28 | P.NPUDS_ITS ---
Diagnoses at Discharge Discharge Diagnosis 1. Methamphetamine abuse: 2. Cannabis use disorder, moderate, dependence: 3. Anxiety: 4. Depressive disorder: Reason for Visit Reason for Visit: si Involuntary Hold Information Hold Status: Date/Time Hold Expires: vol 96 Hour Hold: 96 Hour Involuntary Admission: Yes Other Hold: Hold End Date: 10/05/24 Mental Status Exam MSE Comments: This is a well-nourished, well-developed white male older appearing than his stated age with limited grooming and eye contact. No abnormal movements except for resolving/decreasing psychomotor retardation. Mostly cooperative with exam in mild distress. Speech was slightly decreased rate and volume. Mood described as anxious, but improving, affect congruent. Thought process organized. Thought content: Patient denied suicidal or homicidal ideations, no delusions were reported or noted, he denied any auditory or visual hallucinations. Attention and concentration were intact and memory appeared mostly intact but none were formally tested. He is alert and oriented ?3. Insight and judgment are limited. Impulse control is limited but improving. Discharge Data Studies Completed and Pending: Laboratory Results WBC 8.81 10^3/uL (3.2 9-11.43) 11/12/25 01:11 RBC 4.74 10^6/uL (3.8 5-5.65) 11/12/25 01:11 Hgb 14.20 g/dL (11.27 -16.99) 11/12/25 01:11 Hct 42.6 % (37-53) 11/12/25 01:11 MCV 89.9 fl (82-101) 11/12/25 01:11 MCH 30.0 pg (27-33) 11/12/25 01:11 MCHC 33.3 g/dL (30-55) 11/12/25 01:11 RDW 13.0 % (12.1-15.1 ) 11/12/25 01:11 Plt Count 287 10^3/cmm (157 -399) 11/12/25 01:11 MPV 8.5 fL (7.4-10.4) 11/12/25 01:11 Neut % (Auto) 55.0 % 11/12/25 01:11 Lymph % (Auto) 32.2 % 11/12/25 01:11 [place] % (Auto) 7.2 % 11/12/25 01:11 Eos % (Auto) 4.7 % 11/12/25 01:11 Baso % (Auto) 0.7 % 11/12/25 01:11 Neut # (Auto) 4.85 10^3/uL (1.8 -7.7) 11/12/25 01:11 Lymph # (Auto) 2.8 10^3/uL (0.8- 4.8) 11/12/25 01:11 [place] # (Auto) 0.6 10^3/uL (0.2- 0.9) 11/12/25 01:11 Eos # (Auto) 0.4 10^3/uL (0.0- 0.8) 11/12/25 01:11 Baso # (Auto) 0.1 10^3/uL (0.0- 0.1) 11/12/25 01:11 Nucleated RBC % (a uto) 0 % 11/12/25 01:11 Nucleated RBCs # 0.0 /100WBC 11/12/25 01:11 Sodium 140 mmol/L (136-1 45) 11/12/25 01:11 Potassium 4.1 mmol/L (3.5-5 .1) 11/12/25 01:11 Chloride 104 mmol/L (98-10 7) 11/12/25 01:11 Carbon Dioxide 25 mmol/L (22-29) 11/12/25 01:11 Anion Gap 15.1 (5-19) 11/12/25 01:11 BUN 12 mg/dL (6-20) 11/12/25 01:11 Creatinine 0.8 mg/dL (0.7-1. 2) 11/12/25 01:11 GFR Calculation 106.5 mL/min (90- 130) 11/12/25 01:11 Glucose 97 mg/dL (65-115) 11/12/25 01:11 Calculated Osmolal ity 290 mOsm/kg (285- 295) 11/12/25 01:11 Calcium 9.9 mg/dL (8.5-10 .5) 11/12/25 01:11 Total Bilirubin 0.2 mg/dL (0.15-1 .2) 11/12/25 01:11 AST 29 U/L (0-40) 11/12/25 01:11 ALT 53 U/L (0-41) H 11/12/25 01:11 Alkaline Phosphata se 86 U/L (40-130) 11/12/25 01:11 Total Protein 7.1 g/dL (6.6-8.7 ) 11/12/25 01:11 Albumin 4.4 g/dL (3.5-5.2 ) 11/12/25 01:11 Globulin 2.7 g/dL (1.3-4.6 ) 11/12/25 01:11 Salicylates < 0.3 mg/dL (3-10 ) L 11/12/25 01:11 Urine Opiates Scre en Negative ng/mL (N egative) 11/12/25 00:23 Acetaminophen < 5.0 ug/mL (10-3 0) L 11/12/25 01:11 Ur Barbiturates Sc reen Negative ng/mL (N egative) 11/12/25 00:23 Ur Phencyclidine S crn Negative ng/mL (N egative) 11/12/25 00:23 Ur Amphetamines Sc reen Negative ng/mL (N egative) 11/12/25 00:23 U Benzodiazepines Scrn Negative ng/mL (N egative) 11/12/25 00:23 Urine Cocaine Scre en Negative ng/mL (N egative) 11/12/25 00:23 U Marijuana (THC) Screen Negative ng/mL (N egative) 11/12/25 00:23 Ethyl Alcohol < 10 mg/dL (0-10) 11/12/25 01:11 Vitals: Last Vital Signs Temp 97.4 F L 11/15/25 01:48 Pulse 81 11/15/25 01:48 Resp 18 11/15/25 01:48 BP 127/91 11/15/25 01:48 Pulse Ox 95 11/15/25 01:48 O2 Del Method Room Air 11/15/25 01:48 Discharge Plan Discharge Patient Disposition: Home Condition: Stable Prescriptions: New melatonin 3 mg Tablet 6 mg PO BEDTIME 30 Days Qty: 60 1RF gabapentin 100 mg Capsule 100 mg PO TID 30 Days Qty: 90 1RF hydroxyzine pamoate 25 mg Capsule 50 mg PO Q6H PRN (Reason: Anxiety) 30 Days Qty: 120 1RF Continued trazodone 100 mg tablet 150 mg PO BEDTIME levothyroxine 25 mcg tablet 50 mcg PO QAM bupropion HCl tablet 300 100 ml PO DAILY olanzapine tablet 20 mg PO DAILY Tim-Gest Antacid lozenge 750 mg PO Q8H MDD 10 PRN (Reason: Indigestion) Cepacol lozenge 1 vonnie PO Q1H MDD 12 PRN (Reason: Cough) Hydrocort cream 1 % topical QID PRN (Reason: Itching) Milk of Magnesia (antacid) liquid 30 ml PO BID MDD 60ml/d PRN (Reason: Indigestion) Orajel gel 1 applic buccal QID PRN (Reason: Mouth Pain) Robitussin Chest Congestion liquid 10 ml PO Q4H MDD 60ml PRN (Reason: Cough) Stomach Relief liquid 525 mg PO Q1H MDD 240ml PRN (Reason: stomach upset) Rx Instructions: 525mg/30ml Triple Antibiotic ointment 1 applic topical TID PRN (Reason: Wound Care) baclofen tablet 10 mg PO TID PRN (Reason: Spasms) ondansetron stick 8 mg PO Q6H PRN (Reason: Nausea And Vomiting) polyethylene glycol powder 17 g PO DAILY PRN (Reason: Constipation) propranolol tablet 20 mg PO TID PRN (Reason: Anxiety) Discontinued melatonin capsule 5 mg PO BEDTIME Discharge Order = DC NOW: Discharge Order (Routine); Ordered 11/15/25 Ordered By: Mansoor Rosales Referrals: Светлана Yu FNP-C [Primary Care Provider, Nurse Practitioner] Discharge Diet: Regular Discharge Activity: Resume usual activity Patient Instructions: Opioid Safety, Patient Portal & Jair Instructions Discharge Attestations NPU Time Spent in Discharge Care*: less than 30 min Specific Discharge Activities: Specific discharge activities: educating pat ient, discussing with upper caser/social workers/dc planners, documenting/other paperwork and evaluating patient/reviewing data Status at Discharge: Cognitive status at discharge: cognitively intact , Behavioral status at discharge: cooperative , Coding Level of Care Code Acute Code for [facility] Fwd Diagnoses Methamphetamine abuse F15.10 Cannabis use disorder, moderate, dependence F12.20 Anxiety F41.9 Depressive disorder F32.9
[2025-11-15 13:34] VITALS: BP 119/81; PULSE 101; RESP 16; TEMP 36.4; O2SAT 96
[2025-11-15 13:40] VITALS: BP 119/81; PULSE 101; RESP 16; TEMP 36.4; O2SAT 96
== END 2025-11-15 14:00 | disposition home or self-care (01) | DRG 881 ==
LOC: ER 00:45 → NP 01:12
PROVIDERS: Admitting Provider Psychiatry & Neurology Psychiatry; Emergency Provider Physician Assistant; PCP Nurse Practitioner Family; Visit Provider Psychiatry & Neurology Psychiatry
DX: F32.A Depression, unspecified (principal); F15.10 Other stimulant abuse, uncomplicated; F12.20 Cannabis dependence, uncomplicated; F41.9 Anxiety disorder, unspecified; F17.210 Nicotine dependence, cigarettes, uncomplicated; Z81.8 Family history of other mental and behavioral disorders; Z91.51 Personal history of suicidal behavior
CPT/HCPCS: 36415; 80053; 80306; 80307; 85025; 96372; 97165; 99285; 99291; J2060; J9999